=== PATIENT | male | born 1940 | race Caucasian/White ===

== ENCOUNTER 2019-12-02 10:06 | Inpatient (IN) ==
[2019-12-02] MEDS ORDERED: SODIUM CHLORIDE 0.9% 1000ML 1,000 ML IV ONE (10:33)
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
--- NOTE | 2019-12-02 11:04 | XRay Report ---
XR chest 1V portable HISTORY: 79 years-old Male fall, AMS acute chest trauma status post fall COMPARISON: Acute abdominal series radiographs 12/14/2010 TECHNIQUE: Portable AP view of the chest FINDINGS: 4.7 x 4.6 cm masslike opacity of the right hilum with right perihilar, right midlung and right lung b ase opacities. Trace right pleural effusion. Cardiac silhouette is normal. Calcified plaque of the th oracic aorta. Left lung is clear. No pneumothorax. Age-indeterminate likely chronic nondisplaced frac ture of the lateral left sixth rib. No acute displaced rib fracture identified. IMPRESSION: 1. 4.7 cm masslike opacity of the right hilum is suspicious for a bronchogenic neoplasm. Right perihi lar, right midlung and right lung base ill-defined opacities may reflect associated postobstructive p neumonitis or asymmetric pulmonary edema. Correlation with contrast-enhanced CT of the chest is regla [place]. 2. Trace right pleural effusion. 3. Likely chronic nondisplaced fracture of the lateral left sixth rib. ACT 112: Negative or not required by law. The above report was generated using voice recognition software. It may contain grammatical, syntax o r spelling errors. Electronically signed by: Donte Love M.D. 12/02/2019 11:03 AM
[2019-12-02 11:52] LABS: Basophils # (auto) 0.02 K/uL (0-0.2); Basophils % (auto) 0.1 %; Immature Granulocytes # (auto) 0.21 K/uL (0.00-0.02); Lymphocytes # (auto) 0.88 K/uL (1.2-3.4); Lymphocytes % (auto) 4.3 %; Mean Corpuscular Hemoglobin 30.8 pg (25-34); Mean Corpuscular Hgb Conc 34.1 g/dL (32-36); Mean Corpuscular Volume 90.1 fL (80-100); Mean Platelet Volume 9.9 fL (7.4-10.4); Monocytes # (auto) 1.33 K/uL (0.11-0.59); Monocytes % (auto) 6.5 %; Neutrophils # (auto) 17.87 K/uL (1.4-6.5); Neutrophils % (auto) 88.1 %; Platelet Count 351 K/uL (130-400); RDW Coefficient of Variation 14.4 % (11.5-14.5); RDW Standard Deviation 47.1 fL (36.4-46.3); Red Blood Count 4.55 M/uL (4.7-6.1); White Blood Count 20.31 K/uL (4.8-10.8)
[2019-12-02 11:55] LABS: iSTAT Creatinine 1.2 mg/dl (0.6-1.3); iSTAT Hemoglobin 13.9 g/dl (14.0-18.0); iSTAT Ionized Calcium 1.49 mmol/l (1.12-1.32); iSTAT Potassium 4.2 mmol/L (3.3-5.0)
[2019-12-02 12:03] LABS: INR 1.2 (0.9-1.1); Partial Thromboplastin Time 29.2 Seconds (21.0-31.0); Prothrombin Time 12.5 Seconds (9.0-12.0)
[2019-12-02 12:10] LABS: Albumin Level 2.8 gm/dl (3.4-5.0); Calcium 11.5 mg/dl (8.5-10.1); Creatinine Clr Calc Pharmacy 42.4 ml/min; Est GFR (African American) 62.6; Magnesium 2.4 mg/dl (1.8-2.4); Potassium 4.1 mmol/L (3.5-5.1)
[2019-12-02 12:20] LABS: Influenza A virus by PCR Neg for Influ A (Neg); Influenza B virus by PCR Neg for Influ B (Neg)
[2019-12-02 12:26] LABS: Albumin Globulin Ratio 0.7 (0.9-2); Bilirubin,Total 2.6 mg/dl (0.2-1); Globulin 4.3 gm/dl (2.5-4.0); Total Protein 7.1 gm/dl (6.4-8.2); Troponin I 0.032 ng/ml (0-0.045)
[2019-12-02] MEDS ORDERED: OPTIRAY 320 125ml IV PRN (12:52)
[2019-12-02] MEDS ORDERED: PIPERACILLIN/TAZOBACTAM 3.375 GM in DEXTROSE 5% 100 ML/100 ML BAG IV STA (13:01)
[2019-12-02] MEDS ORDERED: PIPERACILL/TAZOBAC CONSULT ACTIVE PRN (13:01)
--- NOTE | 2019-12-02 13:04 | CT Scan Report ---
CT cervical spine wo con CLINICAL HISTORY: 79 years-old Male with fall. Acute head and neck injury status post fall COMPARISON: CT head and CT chest studies of same day. TECHNIQUE: Multiple axial CT images of the cervical spine were obtained without contrast. A dose low ering technique was utilized adhering to the principles of ALARA. FINDINGS: Right hilar mass noted on the log haul operator localizer images with trace right pleural effusion and right lung base opacities. Demineralized appearance of the bones. Severe disc space narrowing with prominent sp ondylitic spurring at C4-C5, C5-C6 and C6-C7. Moderate multilevel facet arthrosis. Nuchal ligament ca lcifications are noted at the level of T1. No acute fracture, subluxation or suspicious bone lesion i dentified. Mild cervical levoscoliosis. Evaluation of the central canal and neuroforamina is better a ssessed by MRI. Multilevel foraminal narrowing is noted. Posterior disc osteophyte complex formations result in multilevel central canal stenosis which is at least mild to moderate at C4-C5. Heterogeneous appearance of the clivus without discrete bone lesion identified. Calcified plaque of t he carotid bulbs. Asymmetric intralobular septal thickening of the right lung with right pleural effu brisa. No adenopathy. No prevertebral soft tissue swelling. IMPRESSION: 1. No acute cervical spine fracture or subluxation. 2. Right pleural effusion with right hilar mass are better evaluated on CT chest of same day. ACT 112: Negative or not required by law. The above report was generated using voice recognition software. It may contain grammatical, syntax o r spelling errors. Electronically signed by: Donte Love M.D. 12/02/2019 1:02 PM
--- NOTE | 2019-12-02 13:11 | CT Scan Report ---
CT chest w con CLINICAL HISTORY: 79 years-old Male presenting with mass on CXR, AMS, cough. TECHNIQUE: Multidetector CT imaging of the chest was performed after the administration of intravenou s contrast. IV contrast: 120 mL of Optiray 320. One or more dose lowering techniques were used consis tent with the principles of ALARA (as low as reasonably achievable), including automatic exposure con trol, mA or kV adjustment to individual patient size, and/or use of iterative reconstruction. COMPARISON: Chest x-ray from earlier today. CT DOSE (mGy.cm): The estimated cumulative dose is 1698.33 mGy.cm. FINDINGS: Coating Machine Feeder topogram: Unremarkable. Soft tissues: Normal thyroid and thoracic inlet. Prominent enhancing mediastinal lymph nodes measurin g up to 11 mm in short axis was prominently in the right paratracheal and precarinal regions. Conglom erate soft tissue in the subcarinal and right infrahilar regions may in part represent lymphadenopath y. The right pulmonary artery is narrowed with more severe narrowing of the interlobar artery. Narrow ing of the right inferior pulmonary vein also noted. Atherosclerosis of the aorta. Normal heart size. Coronary artery calcification. Trace right or pleural fluid. Right renal cysts noted. Lungs and airways: No pneumothorax. Bronchial wall thickening in the right lung. Polypoid soft tissue within the right mainstem bronchus with occlusive soft tissue in the bronchus intermedius. Distal to this there is low-density mucous plugging within the right middle lobe and right lower lobe bronchi. Pulmonary arteries are not significantly enlarged relative to adjacent bronchi. Interlobular septal thickening in the right lung with a basilar predominance. No interlobular septal thickening in the le ft lung. This likely reflects asymmetric venolymphatic congestive change. Multifocal confluent soft t issue mass emanating from the right hilum and infrahilar region. This extends into the right lower lo be predominately involving the azygoesophageal recess as well as into the superior segment. This may cross the adjacent major fissure involving the posterior segment of the right upper lobe and the righ t middle lobe. Groundglass nodule in the posterior segment of the right upper lobe is somewhat poorly depicted but measures approximately 8 mm (series 13 image 155). No nodule is detected in the left jennifer ng. Musculoskeletal: Degenerative changes of the spine. No destructive osseous lesion. IMPRESSION: 1. Right hilar mass extensively involving the right lower and middle lobes, indistinguishable from u nderlying right hilar and subcarinal mediastinal lymphadenopathy. This should be considered primary b ronchogenic neoplasm with lymphangitic metastatic disease until proven otherwise. 2. 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 3. 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 4. Additional findings as above. The report will be called/faxed according to standard departmental protocol. ACT 112: Negative or not required by law. Electronically signed by: Mateo Parr M.D. 12/02/2019 1:10 PM
--- NOTE | 2019-12-02 13:20 | CT Scan Report ---
CT head/brain wo con CLINICAL HISTORY: 79 years-old Male with fall, AMS. Acute head injury status post fall. Acutely alte red mental status TECHNIQUE: Multiple axial CT images of the head were obtained without contrast. A dose lowering tech nique was utilized adhering to the principles of ALARA. COMPARISON: CT cervical spine and chest CT of same day. FINDINGS: Communications Agent localizer images demonstrate a masslike opacity of the right hilum. No acute intracranial hemorrhage, midline shift, intracranial mass, hydrocephalus, territorial ischem ia or abnormal extra-axial collection. Age-related involutional changes with mild ex vacuo ventriculo megaly. Patchy white matter hypodensities suggest chronic microvascular ischemic disease. Cerebral va scular calcifications are also noted. Study is mildly motion degraded. The calvarium is intact. There are a few ill-defined subcentimeter lucent foci of the frontal calvari um (please see bookmarks). The soft tissues and orbits are unremarkable. The paranasal sinuses, masto id air cells, and middle ear cavities are clear. IMPRESSION: No acute intracranial abnormality or calvarial fracture. ACT 112: Negative or not required by law. The above report was generated using voice recognition software. It may contain grammatical, syntax o r spelling errors. Electronically signed by: Donte Love M.D. 12/02/2019 1:19 PM
--- NOTE | 2019-12-02 13:20 | CT Scan Report ---
CT ANGIOGRAM OF THE BRAIN; CT ANGIOGRAM OF THE NECK CLINICAL HISTORY: Strokelike symptoms. COMPARISON STUDY: Unenhanced CT of the brain performed the same day 12/02/2019. TECHNIQUE: Following the IV administration of 120 of Optiray 320, CT angiogram of the head and neck w as performed from the aortic arch to the vertex. Images are reviewed in the axial, sagittal, and emely nal planes. 3-D MIPS images are created and assessed. IV contrast was administered without complicati on. All measurements were calculated based on NASCET criteria. A dose lowering technique was utilize d adhering to the principles of ALARA. FINDINGS: Brain parenchyma: There is age-related involutional change noting mild subcortical and periventricula r microangiopathic disease. There is no hemorrhage, mass effect, or evidence of acute territorial isc hemia by CT criteria. There is no evidence of enhancing mass lesion on the angiogram phase images. Th e ventricles, sulci, and cisterns are prominent secondary to involutional change. Rojas-white matter d ifferentiation is preserved. No extra-axial fluid collection is seen. Right carotid arterial system: The right common carotid artery is widely patent, as are the right int ernal and external carotid arteries. Calcified plaque is noted in the carotid bowl. Left carotid arterial system: The left common carotid artery is widely patent, as are the left summer internship al and external carotid arteries. Atherosclerotic plaque is noted in the carotid bulb. Vertebral arteries: The vertebral arteries are widely patent and codominant. Subclavian arteries: Widely patent bilaterally. Intracranial vasculature: There is atherosclerotic calcification of the cavernous carotid arteries. T he internal carotid arteries are patent at the skull base, as are the anterior and middle cerebral ar teries bilaterally. The vertebrobasilar system and posterior cerebral arteries are widely patent. The left vertebral artery is dominant. There is a 1 mm aneurysm of the anterior communicating artery see n on axial image #123. There is a 3 mm aneurysm of the supraclinoid left internal carotid artery, bes t seen on image #111 No high-grade stenosis Or focal vessel cut off seen throughout the intracranial circulation. Jugular veins: Patent bilaterally. Dural sinuses: Patent. Lung apices: Partially visualized upper lobe lung parenchyma appears clear noting apical scarring. Soft tissues: The visualized pharyngeal soft tissues are normal in appearance noting angiographic pha se technique. The oropharyngeal airway appears widely patent. The salivary and thyroid glands are nor mal in appearance. No cervical lymphadenopathy is seen. Skeletal structures: The skeletal structures are osteopenic. The calvarium appears intact. The cervic al spine is maintained noting multiple spondylosis. No lytic or blastic lesion is seen. Orbits: There is chronic posttraumatic deformity of the right lamina papyracea with medial herniation of orbital fat. The bony orbits are otherwise intact. Orbital contents are normal in appearance. Sinuses and mastoids: There is trace mucosal thickening within the maxillary antra. The remaining vis ualized paranasal sinuses are clear. The mastoid air cells are well pneumatized. IMPRESSION: 1. There is no hemorrhage, mass effect, or evidence of acute territorial ischemia by CT criteria. 2. There are 2 small intracranial aneurysms, including a 1 mm aneurysm of the anterior communicating artery and a 3 mm aneurysm of the supraclinoid left internal carotid artery. 3. Otherwise unremarkable CT angiogram of the brain. 4. Unremarkable CT angiogram of the neck. ACT 112: Negative or not required by law. Electronically signed by: Rajendra Callahan M.D. 12/02/2019 1:19 PM
[2019-12-02 13:25] LABS: Appearance Urine Cloudy (Clear); Blood Urine 1+ (Negative); Color Urine Dark Yellow; Epithelial Cell Urine Auto >30 /lpf (0-5); Glucose Urine UA Negative (Negative); Ketones Urine 1+ (Negative); Leukocyte Esterase Urine Negative (Negative); Nitrite Urine Negative (Negative); Protein Urine Trace (Negative); Specific Gravity Urine 1.035 (1.000-1.030); Urobilinogen Urine Negative (Negative)
[2019-12-02 13:39] LABS: Bilirubin Urine Negative (Negative); Ictotest Urine Negative (Negative)
[2019-12-02 13:42] LABS: Cast Urine Automated >30 /lpf (0-5); Mucus Urine Present (None Prsent)
[2019-12-02 13:45] LABS: Bacteria Urine Automated 1+ (Negative); Calcium Oxalate Crystals Urine Present (None Prsent)
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
--- NOTE | 2019-12-02 15:07 | History & Physical Report ---
Date of Service December 02, 2019 Assessment & Plan (1) Sepsis: Pt is 79 y/o M with PMH of actual disability, COPD, BPH, dyslipidemia presented to ER with complaint of fall. It is reported for the past 1 to 2 weeks pt had sore throat, cough. Reported choked while eating last week. Unknown if recent F/C In ER patient afebrile, P: 95-104, RR: 13-26, BP 108/79, 95/83, 107/74, 96-100% on room air WBC: 20, elevated neutrophils, Ca: 11.5, glucose 156 otherwise no other significant electrolyte abnormality, lactic acid 3.2, UA 5-10 WBC, 5-10 RBC, 1+ bacteria > 30 epithelial cells. Negative influenza PCR. CXR: 1. 4.7 cm masslike opacity of the right hilum is suspicious for a bronchogenic neoplasm. Right perihilar, right midlung and right lung base ill-defined opacities may reflect associated postobstructive pneumonitis or asymmetric pulmonary edema. Correlation with contrast-enhanced CT of the chest is needed. 2. Trace right pleural effusion. 3. Likely chronic nondisplaced fracture of the lateral left sixth rib. Meets SIRS criteria -In ER given 1 L NSS, Zosyn -Repeat lactic acid 3.6 trend lactic acid -Antibiotics per attending physician, continue Zosyn -MRSA swab pending -Pending COVID-19 PCR -Isolation precautions -Dysphagia screen, clear liquid diet for now -CBC, BMP in the morning (2) Mass of hilum: CT CHEST: IMPRESSION: 1. Right hilar mass extensively involving the right lower and middle lobes, indistinguishable from underlying right hilar and subcarinal mediastinal lymphadenopathy. This should be considered primary bronchogenic neoplasm with lymphangitic metastatic disease until proven otherwise. 2. 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 3. 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 -Pulmonology consult, attending physician spoke with on-call who is aware and recommends COVID-19 testing, possible consideration for bronchoscopy (3) Fall: (4) Rhabdomyolysis: Pt found on floor today. Unknown how long pt was down CPK: 2523, K: 4.1, BUN: 43, Cr: 1.25, GFR:54 (baseline GFR>60) CT HEAD: No acute intracranial abnormality or calvarial fracture. CT C-SPINE: 1. No acute cervical spine fracture or subluxation. 2. Right pleural effusion with right hilar mass are better evaluated on CT chest of same day. CTA HEAD/CTA NECK: 1. There is no hemorrhage, mass effect, or evidence of acute territorial ischemia by CT criteria. 2. There are 2 small intracranial aneurysms, including a 1 mm aneurysm of the anterior communicating artery and a 3 mm aneurysm of the supraclinoid left internal carotid artery. 3. Otherwise unremarkable CT angiogram of the brain. 4. Unremarkable CT angiogram of the neck. -IVF -Recheck CPK tomorrow morning (5) Intellectual disability: Gabby, is pt's economics consultant who works for [employer] in [facility]. Her electronics production supervisor is Noam at [phone]. Contacted [place] who said [facility] has patient's case. -Spoke with patient's medical case worker Trini Sheehan at [phone] with [facility]. She reports patient does not have any living relatives. States patient does not have living well. He does not have a medical decision maker. -She reports past several months pt has had decline, prior he was fairly high functioning and she reports that there is question on how much pt understands vs a communication issue. (6) Dyslipidemia: -Continue statin (7) BPH (benign prostatic hyperplasia): -Continue tamsulosin, finasteride DVT Prophylaxis -SCDs for now in case of possible procedure Full Code as per discussion with pt, pt seemed to understand discussion and health care coach with pt thinks pt understood discussion Follows with Dr Farias for routine care Pt was seen and care coordinated with Dr Cassidy. See addendum History of Present Illness Chief Complaint: sore throat, fall Primary Care Provider: Edgar Farias MD Pt is 79 y/o M with PMH of actual disability, COPD, BPH, dyslipidemia presented to ER with complaint of fall. History obtained from patient's caregiver economics consultant. Gabby, is pt's economics consultant who works for [employer] in [place]. It is reported for the past 1 to 2 weeks patient has been complaining of sore throat, cough. This week patient has been refusing to allow caregivers to enter his home. It is reported patient lives by himself. He has caregivers coming 8 hours a week. It is reported that they help prompt him to fill his med reminder containers and can prompt him to take medications however cannot physically hand him medications to take. His health care coach reports that she does not believe he has been taking his medications for the last several days. She reports that he would not allow anyone in his house for the past 4 days. She knocked on door today and heard patient yelling that he was on floor and could not get up. Patient was found lying on floor in the bathroom. Unsure how long patient was lying on floor. She also reports that patient had been visible weight loss the past several months and has not been eating or drinking well. There is report pt had choked last week In ER patient's caregiver economics consultant helps interpret some of what he is saying. Pt c/o feet being cold. It is unknown if pt with any fevers, N/V/D/C, abdominal pain, SOB, CP. Gabby, is pt's economics consultant who works for [employer] in [place]. Her electronics production supervisor is Noam at [phone]. Contacted Noam who said [facility] has patient's case. Spoke with patient's medical case worker Trini Sheehan at [phone] with [facility]. She reports patient does not have any living relatives. States patient does not have living well. He does not have a medical decision maker. She reports past several months pt has had decline, prior he was fairly high functioning and she reports that there is question on how much pt understands vs a communication issue. Trini's electronics production supervisor is Renetta Cortes at [phone], attempted to contact however no answer and her voicemail was not set up to leave message. Unable to obtain FH Allergies Allergy/AdvReac Type Severity Reaction Status Date / Time No Known Allergies Unverified 12/02/19 10:57 Home Medications Home Medications Medication Instructions Recorded Confirmed Type atorvastatin 40 mg PO QAM 12/02/19 12/02/19 History cholecalciferol (vitamin D3) 25 mcg PO QAM 12/02/19 12/02/19 History [Vitamin D3] finasteride 5 mg PO QAM 12/02/19 12/02/19 History tamsulosin 0.4 mg PO QAM 12/02/19 12/02/19 History Past Med/Surg History Medical History (Updated 12/02/19 @ 16:28 by Delilah Betancourt PA-C) Asthma BPH (benign prostatic hyperplasia) COPD (chronic obstructive pulmonary disease) Dyslipidemia Intellectual disability Intellectual disability Surgical History (Updated 12/02/19 @ 15:57 by Delilah Betancourt PA-C) History of colonoscopy 2012 - adenomatous polyps; by Dr Bahena Social History (Updated 12/02/19 @ 15:59 by Delilah Betancourt PA-C) Preferred Language: Syriac Feels Safe at Home: Yes Smoking Status: Former smoker Smoking End Date: Quit 2008, smoked 1ppd x 40 years ; Hx Alcohol Use: No Hx Substance Use: No Review of Systems Review of Systems: Unobtainable due to cognitive status Physical Exam Physical Exam: General: no acute distress, thin elderly male, disheveled Head: normocephalic, atraumatic Eyes: PERRL, EOM's intact, conjunctiva non-injected, anicteric ENT: normal inspection external ears, nose, mucous membranes dry Neck: supple, trachea midline Lungs: no respiratory distress, R: 20, 97% on RA, diminished breath sounds CV: RRR, trace pretibial edema Abd: normal BS, soft, no apparent tenderness to palpation Ext: no cyanosis, no apparent calf tenderness, able to move arms and legs Neuro: Awake and alert. Pt talks but unable to understand most of what he is saying, his caregiver able to help interpret some Skin: warm, dry Results & Data Results & Data ([facility]) Vital Signs (Past 12 Hours) Vital Signs Temp Pulse Resp BP Pulse Ox 12/02/19 14:00 98 H 22 106/75 99 12/02/19 13:50 91 H 22 97 12/02/19 13:45 90 21 109/73 98 12/02/19 13:40 94 H 20 96 12/02/19 13:31 92 H 23 90 12/02/19 13:30 94 H 21 118/74 95 12/02/19 13:20 96 H 22 95 12/02/19 13:15 94 H 20 114/76 99 12/02/19 13:10 96 H 22 96 12/02/19 13:05 96 H 21 98 12/02/19 13:04 97 H 25 H 146/88 H 98 12/02/19 13:00 93 H 25 H 96 12/02/19 12:50 91 H 17 98 12/02/19 12:43 93 H 24 12/02/19 12:20 100 H 28 H 12/02/19 12:10 95 H 21 12/02/19 12:00 97 H 22 100 12/02/19 11:50 94 H 22 99 12/02/19 11:40 95 H 26 H 90 12/02/19 11:31 95 H 20 95 12/02/19 11:30 94 H 24 111/70 97 12/02/19 11:20 94 H 23 97 12/02/19 11:15 94 H 23 108/74 100 12/02/19 11:10 94 H 21 96 12/02/19 11:09 95 H 29 H 103/66 93 12/02/19 11:00 97 H 23 113/82 100 12/02/19 10:50 109 H 23 12/02/19 10:40 106 H 17 12/02/19 10:32 98 12/02/19 10:30 100 H 23 99/70 L 12/02/19 10:24 36.5 C 95 H 13 108/79 98 12/02/19 10:22 99 H 21 99 12/02/19 10:19 100 H 20 108/79 98 Laboratory Results Short CBC 12/02/19 Range/Units 11:36 WBC 20.31 H (4.8-10.8) K/uL Hgb 14.0 (14.0-18.0) g/dL Hct 41.0 L (42-52) % Plt Count 351 (130-400) K/uL BMP 12/02/19 11:36 Sodium 138 Potassium 4.1 Chloride 104 Carbon Dioxide 21 BUN 46 H Creatinine 1.25 Glucose 156 H Calcium 11.5 H Cardiac Enzymes 12/02/19 Range/Units 11:36 Total Creatine Kinase 1296 H (39-308) U/L Troponin I 0.032 (0-0.045) ng/ml Liver Function 12/02/19 Range/Units 11:36 Total Bilirubin 2.6 H (0.2-1) mg/dl AST 95 H (15-37) U/L ALT 39 (12-78) U/L Alkaline Phosphatase 118 H (45-117) U/L Albumin 2.8 L (3.4-5.0) gm/dl Urine 12/02/19 Range/Units 13:10 Urine Color Dark Yellow Urine Appearance Cloudy A (Clear) Urine pH 5.0 (4.5-7.5) Ur Specific Guston 1.035 H (1.000-1.030) Urine Protein Trace H (Negative) Urine Glucose (UA) Negative (Negative) Diagnostic Findings CT HEAD: IMPRESSION: No acute intracranial abnormality or calvarial fracture. CXR: IMPRESSION: 1. 4.7 cm masslike opacity of the right hilum is suspicious for a bronchogenic neoplasm. Right perihilar, right midlung and right lung base ill-defined opacities may reflect associated postobstructive pneumonitis or asymmetric pulmonary edema. Correlation with contrast-enhanced CT of the chest is needed. 2. Trace right pleural effusion. 3. Likely chronic nondisplaced fracture of the lateral left sixth rib. CT C-SPINE: IMPRESSION: 1. No acute cervical spine fracture or subluxation. 2. Right pleural effusion with right hilar mass are better evaluated on CT chest of same day. CTA HEAD/CTA NECK: IMPRESSION: 1. There is no hemorrhage, mass effect, or evidence of acute territorial ischemia by CT criteria. 2. There are 2 small intracranial aneurysms, including a 1 mm aneurysm of the anterior communicating artery and a 3 mm aneurysm of the supraclinoid left internal carotid artery. 3. Otherwise unremarkable CT angiogram of the brain. 4. Unremarkable CT angiogram of the neck. CT CHEST: IMPRESSION: 1. Right hilar mass extensively involving the right lower and middle lobes, indistinguishable from underlying right hilar and subcarinal mediastinal lymphadenopathy. This should be considered primary bronchogenic neoplasm with lymphangitic metastatic disease until proven otherwise. 2. 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 3. 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 Code Status & VTE Plan VTE Prophylaxis Plan VTE Prophylaxis will be ordered: Yes Supervising Physician Co-Signing Physician Notes I, Dr. Mateo Cassidy, have seen and examined the patient Earlin Aj with physician plant attendant or assistant operator and would like to comment that On Physical Exam General: no acute distress, speaks in sometimes mumbling speech Lungs: no wheezing, some stridor Heart: regular rate Abdomen soft, nontender, positive bowel sounds Extremities: poor nail care of the feet ASSESSMENT AND PLAN -This is a patient with intellectual disability who does have toxicology supervisor services and having recent cough and weight loss who was found being on the floor by toxicology supervisor for unknown duration with elevated creatinine kinase suggestive of rhabdomyolosis and with CT imaging on this admission significant for lung cancer (right hilar mass extensively involving the right lower and middle lobes, indistinguishable from underlying right hilar and subcarinal mediastinal lymphadenopathy. This should be considered primary bronchogenic neoplasm with lymphangitic metastatic disease until proven otherwise. 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 Quinonez about inpatient bronchoscopy, Dr. Quinonez requested COVID-19 to be rule out prior to proceeding with bronchoscopy -medical decision making is being investigated by hospitalist team. Patient has toxicology supervisor services but no living relations no known Living Will and has in tellectual disability by history. Patient did seem to appreciate being able to make decision about code status. He is full code status as he would allow for chest compression, defibrillation, and intubation in medical emergency. However, his ability to comprehend invasive procedure of bronchoscopy risks and benefits and future chemotherapy or radiation plans are questionable. (as documented by physician plant attendant or assistant operator Gabby, is pt's economics consultant who works for [employer] in [place]. Her electronics production supervisor is Noam at [phone]. Contacted [place] who said [facility] has patient's case. Spoke with patient's medical case worker Trini Sheehan at [phone]. She reports patient does not have any living relatives. States patient does not have living well. He does not have a medical decision maker. Trini's electronics production supervisor is Renetta Cortes at [phone], attempted to contact however no answer and her voicemail was not set up to leave message.) -give IV fluids and trend the creatinine kinase -agree with other assessment and plan as documented by physician plant attendant or assistant operator on other chronic health conditions My colleague Dr. Leos will be taking over the care of the patient as consult service hospitalist starting on 12/03/2019 (1) Rhabdomyolysis Encounter type: initial encounter Rhabdomyolysis type: traumatic Qualified Code(s): T79.6XXA - Traumatic ischemia of muscle, initial encounter (2) Fall Encounter type: initial encounter Qualified Code(s): W19.XXXA - Unspecified fall, initial encounter
--- NOTE | 2019-12-02 15:41 | Pulmonary Consultation ---
Date of Consultation December 02, 2019 History of Present Illness Allergies Allergy/AdvReac Type Severity Reaction Status Date / Time No Known Allergies Unverified 12/02/19 10:57 Home Medications Home Medications Medication Instructions Recorded Confirmed Type atorvastatin 40 mg PO QAM 12/02/19 12/02/19 History cholecalciferol (vitamin D3) 25 mcg PO QAM 12/02/19 12/02/19 History [Vitamin D3] finasteride 5 mg PO QAM 12/02/19 12/02/19 History tamsulosin 0.4 mg PO QAM 12/02/19 12/02/19 History Patient History Medical History Asthma COPD (chronic obstructive pulmonary disease) Intellectual disability Social History Preferred Language: Indian Feels Safe at Home: Yes Smoking Status: Former smoker Results & Data [facility] ([facility]) Vital Signs (Past 12 Hours) Vital Signs Temp Pulse Resp BP Pulse Ox 12/02/19 15:30 101 H 21 107/74 97 12/02/19 15:15 103 H 23 108/80 97 12/02/19 15:00 104 H 26 H 95/83 L 95 12/02/19 14:30 97 H 26 H 108/78 97 12/02/19 14:15 96 H 25 H 115/76 99 12/02/19 14:00 98 H 22 106/75 99 12/02/19 13:50 91 H 22 97 12/02/19 13:45 90 21 109/73 98 12/02/19 13:40 94 H 20 96 12/02/19 13:31 92 H 23 90 12/02/19 13:30 94 H 21 118/74 95 12/02/19 13:20 96 H 22 95 12/02/19 13:15 94 H 20 114/76 99 12/02/19 13:10 96 H 22 96 12/02/19 13:05 96 H 21 98 12/02/19 13:04 97 H 25 H 146/88 H 98 12/02/19 13:00 93 H 25 H 96 12/02/19 12:50 91 H 17 98 12/02/19 12:43 93 H 24 12/02/19 12:20 100 H 28 H 12/02/19 12:10 95 H 21 12/02/19 12:00 97 H 22 100 12/02/19 11:50 94 H 22 99 12/02/19 11:40 95 H 26 H 90 12/02/19 11:31 95 H 20 95 12/02/19 11:30 94 H 24 111/70 97 12/02/19 11:20 94 H 23 97 12/02/19 11:15 94 H 23 108/74 100 12/02/19 11:10 94 H 21 96 12/02/19 11:09 95 H 29 H 103/66 93 12/02/19 11:00 97 H 23 113/82 100 12/02/19 10:50 109 H 23 12/02/19 10:40 106 H 17 12/02/19 10:32 98 12/02/19 10:30 100 H 23 99/70 L 12/02/19 10:24 36.5 C 95 H 13 108/79 98 12/02/19 10:22 99 H 21 99 12/02/19 10:19 100 H 20 108/79 98 PG Care Time/CCT Total # of Minutes Spent Total Time Spent with Patient: Total time spent is greater than 50% in coordination of care (as documented) at patient's floor/unit and/or counseling patient: Coding
[2019-12-02] MEDS ORDERED: ACETAMINOPHEN 325 MG TAB PO PRN (20:22)
[2019-12-02] MEDS: SODIUM CHLORIDE 0.9% 1000ML 1,000 ML IV SCH (20:42)
[2019-12-02] MEDS: PIPERACILLIN/TAZOBACTAM 3.375 GM in DEXTROSE 5% 100 ML IV SCH (21:11)
[2019-12-02] MEDS ORDERED: INFLUENZA VACCINE HIGH DOSE 65+ 0.5 ML SYR IM ONE (21:27)
[2019-12-02] MEDS ORDERED: PNEUMOCOCCAL POLYSACCHARIDES 25 MCG/0.5 ML VIAL/SYR IM ONE (21:27)
[2019-12-02] MEDS ORDERED: PNEUMOCOCCAL ADMINISTRATION CHARGE ONE (21:27)
[2019-12-02] MEDS ORDERED: INFLUENZA ADMINISTRATION CHARGE ONE (21:27)
[2019-12-03] MEDS: PIPERACILLIN/TAZOBACTAM 3.375 GM in DEXTROSE 5% 100 ML IV SCH ×3 (04:09→20:19)
[2019-12-03] MEDS: SODIUM CHLORIDE 0.9% 1000ML 1,000 ML IV SCH ×2 (05:46→18:44)
--- NOTE | 2019-12-03 06:11 | Electrocardiogram Report ---
Test Reason : Blood Pressure : / mmHG Vent. Rate : 094 BPM Atrial Rate : 094 BPM P-R Int : 148 ms QRS Dur : 130 ms QT Int : 410 ms P-R-T Axes : 070 -07 058 degrees QTc Int : 512 ms Poor data quality, interpretation may be adversely affected Normal sinus rhythm Right bundle branch block Abnormal ECG When compared with ECG of 14-DEC-2010 12:29, No significant change was found Confirmed by Isaak Russell ([id number]) on 12/03/2019 6:11:04 AM Referred By: REFERRED SELF Confirmed By:Isaak Russell
[2019-12-03 06:18] LABS: Basophils # (auto) 0.01 K/uL (0-0.2); Basophils % (auto) 0.1 %; Eosinophils # (auto) 0.02 K/uL (0-0.5); Eosinophils % (auto) 0.1 %; Hematocrit (blood only) 35.7 % (42-52); Hemoglobin 12.6 g/dL (14.0-18.0); Immature Granulocytes % (auto) 0.7 %; Lymphocytes # (auto) 1.41 K/uL (1.2-3.4); Lymphocytes % (auto) 9.6 %; Mean Corpuscular Hemoglobin 31.8 pg (25-34); Mean Corpuscular Hgb Conc 35.3 g/dL (32-36); Mean Corpuscular Volume 90.2 fL (80-100); Mean Platelet Volume 9.7 fL (7.4-10.4); Monocytes % (auto) 8.2 %; Neutrophils # (auto) 11.93 K/uL (1.4-6.5); Neutrophils % (auto) 81.3 %; Platelet Count 288 K/uL (130-400); RDW Coefficient of Variation 14.7 % (11.5-14.5); RDW Standard Deviation 48.2 fL (36.4-46.3); Red Blood Count 3.96 M/uL (4.7-6.1); White Blood Count 14.67 K/uL (4.8-10.8)
[2019-12-03 07:08] LABS: BUN Creatinine Ratio 47.4 (10-20); Calcium 10.5 mg/dl (8.5-10.1); Creatinine Clr Calc Pharmacy 58.3 ml/min; Est GFR (African American) 93.2; Est GFR (Non-African American) 80.4; Potassium 3.7 mmol/L (3.5-5.1)
[2019-12-03] MEDS: FINASTERIDE 5 MG TAB PO SCH (11:36)
[2019-12-03] MEDS: ATORVASTATIN 40 MG TAB PO SCH (11:36)
[2019-12-03] MEDS: TAMSULOSIN HCL 0.4 MG CAP PO SCH (11:36)
--- NOTE | 2019-12-03 13:24 | Pulmonary Consultation ---
Date of Consultation December 03, 2019 Assessment & Plan (1) Mass of right lung: Patient denies former history of malignancy [id number] smoking history. Patient quit smoking in 2008 Patient presented with sepsis and is currently receiving antibiotics. Patient also with elevated calcium at 10.5. * Recommend calcitonin and increased IV fluid We will plan on bronchoscopy once patient is more stable from his sepsis (2) Sepsis: Possible pneumonia but patient has large right hilar mass Lactic acid is decreased down to 1.4 Currently receiving Zosyn COVID 19 test is negative Preliminary blood cultures and urine culture are With no growth to date after 24 hours Negative for influenza A and B MRSA screening is negative T-max this admission has been 37.1 C Continue care per primary team (3) Intellectual disability: Patient apparently lives alone and makes his own decisions Primary caregiver since February 2019 is been to Gabby Garcia [phone] Gabby's superviser is Noam [phone] Patient's case management specialist with [facility] is Trini Sissy [phone] There are no living relatives or power of assistant attorney general assigned As far as case workers no, There is no guardianship assigned by the [facility] or office of aging (4) History of tobacco abuse: [id number] history. Patient quit smoking in 2015 Continue to encourage complete abstinence Thank you for including us in the care of this patient.We will continue to follow along with you. Please refer to Dr. Quinonez's addendum for further ambulations. Supervising Physician Co-Signing Physician Notes I saw and evaluated the patient with Rajendra ferrer, and agree with findings and plan as documented in the note. 79-year-old male with past medical history significant for smoking history, intellectual disability who has been taken care of by primary wound care technician. He was admitted because of dry cough and increasing SOB since last couple of weeks. Patient had a CT chest in the ED which showed right hilar mass with subsequent right lower and middle lobe infiltrate. There was significant mediastinal lymphadenopathy with necrosis appreciated with. Patient had a corrected calcium of 12.5 on presentation. Today the corrected calcium level is 11.5. Given hypercalcemia and right mediastinal mass the likelihood of cancer is very high in a patient who has greater than [id number] smoking history. Given the patient is hypercalcemic with elevated WBC count would rather have calcium within normal limits prior to proceeding with any procedure. Case was discussed with Dr. Leos and recommendation was made to start the patient on IV fluids and give a dose of calcitonin and biphosphonate/risedronate. Application Support Lead is also been involved to see if the patient has the capacity to make his own decisions. Possible bronchoscopy on Friday. History of Present Illness Attending Physician: Edgar Leos MD History of Present Illness Attending: Dr. Quinonez This is an 79-year-old male that lives at home alone. He does have an intellectual disability and has home health care provided through [facility] in [facility]. The patient's primary caregiver is Gabby harrell. Her direct phone number is [phone]. I did speak with her this morning and she tells me that the patient has lives alone and has no family. He has no children. He has been making his own decisions at home and communicates through to care. She is currently been his primary caregiver since February 2019.Per her knowledge there is no other guardianship assigned by the [facility] or [facility] .The patient is very difficult to understand and the caregiver indicates that this is his baseline. The patient has had a cough for the last 2 weeks and increasing shortness of breath. He is oxygenating well on room air. He denies any blood in his sputum. He denies any chest pain or tightness.The ski production supervisor states that he has not been allowing other caregivers to come to the home this week. She is also questioning whether not he was taking his meds as prescribed. The patient states he is a former smoker but quit several years ago. He states he does not follow with a lung doctor and has no known lung disease. On admission the patient had a chest x-ray followed by CT scan which shows a large right mass in the hilar region. This is suspicious for squamous cell carcinoma.Patient most likely will require endobronchial ultrasound with bronchoscopy. This will not happen before Friday. Allergies Allergy/AdvReac Type Severity Reaction Status Date / Time No Known Allergies Unverified 12/02/19 10:57 Home Medications Home Medications Medication Instructions Recorded Confirmed Type atorvastatin 40 mg PO QAM 12/02/19 12/02/19 History cholecalciferol (vitamin D3) 25 mcg PO QAM 12/02/19 12/02/19 History [Vitamin D3] finasteride 5 mg PO QAM 12/02/19 12/02/19 History tamsulosin 0.4 mg PO QAM 12/02/19 12/02/19 History Patient History Medical History Asthma BPH (benign prostatic hyperplasia) COPD (chronic obstructive pulmonary disease) Dyslipidemia Intellectual disability Intellectual disability Surgical History History of colonoscopy 2013 - adenomatous polyps; by Dr Bahena Social History Preferred Language: Finnish Communication Ability: Effective Communication Ability Comment: ID, garbled speech, 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 Pleasant. Difficult to understand EYES: No icterus, gaze conjugate NOSE: No evidence of epistaxis. No breach of septum MOUTH: No lesions or candidiasis. Mucosa is dry NECK: Supple LUNGS: Generally CTA B/L, no wheezes, rales or rhonchi HEART: Regular, rate controlled ABDOMEN: Soft, NT, ND, BS Present EXTREMITIES: No LE edema, pedal pulses intact NEURO: A&OX3 Results & Data Results & Data ([facility]) Vital Signs (Past 12 Hours) Vital Signs Temp Pulse Pulse Resp BP Pulse Ox 12/03/19 11:33 36.4 C L 87 20 137/82 96 12/03/19 11:17 84 12/03/19 08:19 36.4 C L 88 20 118/74 95 12/03/19 04:10 36.8 C 88 18 110/67 94 Laboratory Results INR 1.2 (0.9-1.1) H 12/02/19 11:36 12/03/19 05:55 12/03/19 05:[address] chest w con CLINICAL HISTORY: 79 years-old Male presenting with mass on CXR, AMS, cough. TECHNIQUE: Multidetector CT imaging of the chest was performed after the administration of intravenous contrast. IV contrast: 120 mL of Optiray 320. One or more dose lowering techniques were used consistent with the principles of ALARA (as low as reasonably achievable), including automatic exposure control, mA or kV adjustment to individual patient size, and/or use of iterative reconstruction. COMPARISON: Chest x-ray from earlier today. CT DOSE (mGy.cm): The estimated cumulative dose is 1698.33 mGy.cm. 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 Soft tissues: Normal thyroid and thoracic inlet. Prominent enhancing mediastinal lymph nodes measuring up to 11 mm in short axis was prominently in the right paratracheal and precarinal regions. Conglomerate soft tissue in the subcarinal and right infrahilar regions may in part represent lymphadenopathy. The right pulmonary artery is narrowed with more severe narrowing of the interlobar artery. Narrowing of the right inferior pulmonary vein also noted. Atherosclerosis of the aorta. Normal heart size. Coronary artery calcification. Trace right or pleural fluid. Right renal cysts noted. Lungs and airways: No pneumothorax. Bronchial wall thickening in the right lung. Polypoid soft tissue within the right mainstem bronchus with occlusive soft tissue in the bronchus intermedius. Distal to this there is low-density mucous plugging within the right middle lobe and right lower lobe bronchi. Pulmonary arteries are not significantly enlarged relative to adjacent bronchi. Interlobular septal thickening in the right lung with a basilar predominance. No interlobular septal thickening in the left lung. This likely reflects asymmetric venolymphatic congestive change. Multifocal confluent soft tissue mass emanating from the right hilum and infrahilar region. This extends into the right lower lobe predominately involving the azygoesophageal recess as well as into the superior segment. This may cross the adjacent major fissure involving the posterior segment of the right upper lobe and the right middle lobe. Groundglass nodule in the posterior segment of the right upper lobe is somewhat poorly depicted but measures approximately 8 mm (series 13 image 155). No nodule is detected in the left lung. Musculoskeletal: Degenerative changes of the spine. No destructive osseous lesion. IMPRESSION: 1. Right hilar mass extensively involving the right lower and middle lobes, indistinguishable from underlying right hilar and subcarinal mediastinal lymphadenopathy. This should be considered primary bronchogenic neoplasm with lymphangitic metastatic disease until proven otherwise. 2. 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 3. 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 4. Additional findings as above. The report will be called/faxed according to standard departmental protocol. ACT 112: Negative or not required by law. Electronically signed by: Mateo Parr M.D. 12/02/2019 1:10 PM PG Care Time/CCT Total # of Minutes Spent Total Time Spent with Patient: Total time spent is greater than 50% in coordination of care (as documented) at patient's floor/unit and/or counseling patient:45 minutes including discussion with home health caregiver, other providers, and case management [place] [address] Inpt Consult Level 4 Patient Type New Diagnoses Mass of right lung R91.8 Sepsis A41.9 Intellectual disability F79 History of tobacco abuse Z87.029
--- NOTE | 2019-12-03 17:03 | Hospitalist Progress Note ---
Date of Service December 03, 2019 Assessment & Plan (1) Severe sepsis: Met criteria for sever sepsis at time of admission per current [facility] guidelines- tachycardia, tachypnea, leukocytosis, elevated lactate. Blood cultures obtained. Received broad-spectrum IV antibiotics. Received fluid resuscitation. Serum lactate 3.2 and followed. Hemodynamically stable. Most likely source pneumonia as discussed below. (2) Postobstructive pneumonia: Suspected underlying lung Ca. Continue IV piperacillin / tazobactam. (3) Abnormal CT scan, chest: CT chest: IMPRESSION: 1. Right hilar mass extensively involving the right lower and middle lobes, indistinguishable from underlying right hilar and subcarinal mediastinal lymphadenopathy. This should be considered primary bronchogenic neoplasm with ly mphangitic metastatic disease until proven otherwise. 2. Neoplastic invasion of the right mainstem bronchus and bronchus intermedius resulting in bronchial obstruction and postobstructive mucous pl ugging. 3. 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 4. Additional findings as above. The report will be called/faxed according to standard departmental protocol. ACT 112: Negative or not required by law. Electronically signed by: Mateo Parr M.D. Former smoker. Findings worrisome for lung primary with bronchial obstruction and postobstructive pneumonia. Pulmonary Medicine consulted. (4) Hypercalcemia: Serum calcium at time of admission 11.5. Alb = 2.8. Corrected Ca++ = 12.5. Ionized Ca++ 1.49. Received IV fluids. Calcium today = 10.5, corrected Ca = 11.5. Suspected underlying lung Ca. Continue IV fluids. Calcitonin. Follow. (5) Rhabdomyolysis: Found at home on floor. CPK 1296. Received IV fluids. Renal function stable. CPK today 341. (6) Dysphagia: Difficulty swallowing noted by nursing staff. INSTRUCTOR KINDERGARTEN tashal. (7) BPH (benign prostatic hyperplasia): Continue finasteride and tamsulosin. (8) Weight loss: Apparent weight loss. Suspected underlying malignancy. Review records. (9) Fall: Found at home after apparent fall. PT / OT. (10) Intellectual disability: History of cognitive disability. Deemed capable of decision making in the past, but may need reassessment. (11) COVID-19 virus not detected: No apparent risk factors for COVID-19. Testing recommended in light of anticipated bronchoscopy. SARS-CoV-2 nasopharyngeal PCR negative on 12/02/19. (12) DVT prophylaxis: Anticoagulants not ordered at time of admission due to possibility of invasive diagnostic procedures. SCD's. Ambulate. (13) Discharge planning issues: Discharge disposition to be determined. Unlikely that patient will be able to care for himself at home. Family Medicine follow-up with Dr. Fairas. Admission and Anticipated Discharge Date Admission Date: December 02, 2019 Subjective Recheck for multiple problems. No fever. Occasional cough. Denies SOB. No chest pain. Nursing staff concerned about difficulty swallowing. Review of Systems: Constitutional- no fever. Cardiac- no chest pain. Pulmonary- as noted above. GI- no nausea, vomiting, diarrhea, melena, hematochezia. - no urinary symptoms. Otherwise, as noted above. Physical Exam Constitutional: + thin Eyes: + anicteric sclerae Respiratory: no respiratory distress Auscultation: + rales (right base) Cardiovascular: Rate/Rhythm: regular rate Extremities: no edema Gastrointestinal (Abdomen): normal bowel sounds, soft, nontender, no hepatosplenomegaly Musculoskeletal: Extremities: no cyanosis Psychiatric: Orientation: alert; + not oriented x 3 Results & Data Results & Data ([facility]) Vital Signs (Past 12 Hours) Vital Signs Temp Pulse Pulse Resp BP Pulse Ox 12/03/19 15:59 36.4 C L 87 20 146/75 H 96 12/03/19 11:33 36.4 C L 87 20 137/82 96 12/03/19 11:17 84 12/03/19 08:19 36.4 C L 88 20 118/74 95 (1) Rhabdomyolysis Encounter type: initial encounter Rhabdomyolysis type: traumatic Qualified Code(s): T79.6XXA - Traumatic ischemia of muscle, initial encounter (2) Fall Encounter type: initial encounter Qualified Code(s): W19.XXXA - Unspecified fall, initial encounter
[2019-12-03] MEDS ORDERED: CALCITONIN SALMON 400 UNITS/2 ML SQ ONE (17:49)
[2019-12-04] MEDS: SODIUM CHLORIDE 0.9% 1000ML 1,000 ML IV SCH (02:02)
[2019-12-04] MEDS: PIPERACILLIN/TAZOBACTAM 3.375 GM in DEXTROSE 5% 100 ML IV SCH ×3 (04:15→19:40)
[2019-12-04 06:18] LABS: Hematocrit (blood only) 31.4 % (42-52); Hemoglobin 10.7 g/dL (14.0-18.0); Mean Corpuscular Hemoglobin 30.3 pg (25-34); Mean Corpuscular Hgb Conc 34.1 g/dL (32-36); Mean Platelet Volume 9.5 fL (7.4-10.4); Platelet Count 243 K/uL (130-400); RDW Coefficient of Variation 14.8 % (11.5-14.5); Red Blood Count 3.53 M/uL (4.7-6.1); White Blood Count 12.11 K/uL (4.8-10.8)
[2019-12-04 06:50] LABS: BUN Creatinine Ratio 37.3 (10-20); Creatinine Clr Calc Pharmacy 85.8 ml/min; Est GFR (African American) 107.9; Est GFR (Non-African American) 93.1; Potassium 3.2 mmol/L (3.5-5.1)
[2019-12-04] MEDS ORDERED: POTASSIUM CHLORIDE 20 MEQ TABCR PO ONE (07:53)
[2019-12-04] MEDS: ATORVASTATIN 40 MG TAB PO SCH (09:03)
[2019-12-04] MEDS: FINASTERIDE 5 MG TAB PO SCH (09:03)
[2019-12-04] MEDS: TAMSULOSIN HCL 0.4 MG CAP PO SCH (09:03)
--- NOTE | 2019-12-04 12:00 | Pulmonology Progress Note ---
Date of Service December 04, 2019 Assessment & Plan (1) Mass of right lung: CT chest with contrast 12/02/2019: Patient has right hilar mass with likely endobronchial lesion in the RBI, there is central necrosis appreciated of the mass there is resulting postobstructive pneumonia as well of the right middle and lower lobe, there is mediastinal lymphadenopathy especially station 4R, 10 R, 7. It seems that the mass is encasing the great vessels. Mild air trapping. --Right hilar mass with mediastinal lymphadenopathy In a patient who is a smoker with hypercalcemia The likelihood of malignancy is very high, squamous cell carcinoma will be very high in differential Patient will benefit from EBUS with bronchoscopy to get tissue diagnosis. --Right lower lobe pneumonia Likely postobstructive Continue with antibiotics for total of 10 days --COPD Not in exacerbation Continue with inhaled treatment --Hypercalcemia Follow-up PTH and PTHrP Status post calcitonin on 12/03/2019 Would recommend consideration of biphosphonate IV 1 dose once PTH is back Plan: Patient's corrected calcium today is 10 which is within normal limits Patient is able to answer simple questions but I personally do not think the patient has the capacity to make complex decision like bronchoscopy. It is a bit challenging given that the patient has history of intellectual disability and has very difficult speech. Given the size of the mass with central necrosis and hypercalcemia if it is a cancer it will be nonoperable minimum stage IIIb. Overall prognosis of the patient is poor. Case management is on case to find out if the patient has capacity or if the patient has any governing body to make decisions for him. From pulmonary perspective I would recommend antibiotics for total of 10 days it can be transitioned to p.o. given the patient is hemodynamically stable and saturating well on room air. If we have somebody to consent for the procedure we will go ahead and do the procedure on Friday. If not then this could be done as an outpatient. Recommend non emergent MRI of the brain to rule out mets. PET CT as an outpatient. We will be following the case peripherally please keep us updated regarding patient's capacity to make decisions or somebody who could make decisions for the patient. Please note the above document was generated using voice recognition software. It may contain grammatical, syntax or spelling errors. (2) History of tobacco abuse: (3) Intellectual disability: (4) Altered mental status: Altered mental status type: disorientation Qualified Code(s): R41.0 - Disorientation, unspecified Admission and Anticipated Discharge Date Admission Date: December 02, 2019 Subjective Patient seen and examined at bedside. No acute distress, no adverse events overnight. Patient is sitting on the sofa chair. Patient has speech which is difficult to articulate. He is able to answer simple questions. Denies any chest pain, denies any shortness of breath, no nausea or vomiting. Good appetite. Denies any headache or blurry vision. Review of Systems Review of Systems: All systems reviewed & are unremarkable except as noted in HPI & below Physical Exam Physical Exam: Constitutional: No acute distress HEENT: EOMI, PERRLA, difficult to comprehend speech Respiratory system: Decreased air entry on the right side, positive crackles right lower lobe, no wheeze, no rhonchi CVS: S1-S2 positive, no murmurs or gallops Abdomen: Soft, nontender, nondistended, positive bowel sounds x4 Extremities: +2 pulses bilaterally radialis/ dorsalis pedis, no cyanosis, no edema Neuro: Awake alert oriented to self and place Psych: Normal mood and affect G/U: No Huang Skin: no rashes, warm and dry Lymphatic: no cervical or axillary lymphadenopathy Results & Data Results & Data ([facility]) Vital Signs (Past 12 Hours) Vital Signs Temp Pulse Pulse Resp BP Pulse Ox 12/04/19 10:24 82 12/04/19 07:03 36.5 C 78 18 100/62 99 12/04/19 03:24 97 H 12/04/19 03:04 36.4 C L 91 H 18 114/70 91 12/04/19 06:05 12/04/19 06:05 PG Care Time/CCT Total # of Minutes Spent Total Time Spent with Patient: Total time spent is greater than 50% in coordination of care (as documented) at patient's floor/unit and/or counseling patient: Coding Level of Care Code 98306 Subseq Hosp Care Lvl 3 Diagnoses Mass of right lung R91.8 History of tobacco abuse Z87.891 Intellectual disability F79 Altered mental status R41.0 Altered mental status type: disorientation
--- NOTE | 2019-12-04 14:21 | Hospitalist Progress Note ---
Date of Service December 04, 2019 Assessment & Plan (1) Severe sepsis: Met criteria for sever sepsis at time of admission per current [facility] guidelines- tachycardia, tachypnea, leukocytosis, elevated lactate. Blood cultures obtained. Received broad-spectrum IV antibiotics. Received fluid resuscitation. Hemodynamically stable. Serum lactate 3.2 and followed; repeat lactates 3.6, 1.4. Most likely source pneumonia as discussed below. WBC 20,310 --> 12,110. Afebrile. (2) Postobstructive pneumonia: Suspected underlying lung Ca. Continue IV piperacillin / tazobactam. (3) Abnormal CT scan, chest: CT chest: IMPRESSION: 1. Right hilar mass extensively involving the right lower and middle lobes, indistinguishable from underlying right hilar and subcarinal mediastinal lymphadenopathy. This should be considered primary bronchogenic neoplasm with lymphangitic metastatic disease until proven otherwise. 2. 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 3. 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 4. Additional findings as above. The report will be called/faxed according to standard departmental protocol. ACT 112: Negative or not required by law. Electronically signed by: Mateo Parr M.D. Former smoker. Findings worrisome for lung primary with bronchial obstruction and postobstructive pneumonia. Pulmonary Medicine consulted. Bronchoscopy indicated, but competence needs to be verified before obtaining informed consent. Check MRI of brain for staging purposes. Outpatient PET recommended. (4) Hypercalcemia: Serum calcium at time of admission 11.5. Alb = 2.8. Corrected Ca++ = 12.5. Ionized Ca++ 1.49. Received IV fluids and calcitonin. Calcium today = 9.0, corrected Ca = 10.0. Ionized Ca++ 1.26. Suspected underlying lung Ca. PTH normal. PTH related protein pending. Will likely need bisphosphonate to avoid recurrence. Follow. (5) Rhabdomyolysis: Found at home on floor. CPK 1296. Received IV fluids. Renal function stable. CPK 12/03 341. (6) Dysphagia: Difficulty swallowing noted by nursing staff. Seen by FITNESS LEADER. Beside swallowing evaluation performed. No apparent aspiration. (7) BPH (benign prostatic hyperplasia): Continue finasteride and tamsulosin. (8) Weight loss: Apparent weight loss. Suspected underlying malignancy. Review records. (9) Fall: Found at home after apparent fall. PT / OT. (10) Intellectual disability: History of cognitive disability. Deemed capable of decision making in the past, but may need reassessment. (11) COVID-19 virus not detected: No apparent risk factors for COVID-19. Testing recommended in light of anticipated bronchoscopy. SARS-CoV-2 nasopharyngeal PCR negative on 12/02/19. (12) DVT prophylaxis: Anticoagulants not ordered at time of admission due to possibility of invasive diagnostic procedures. SCD's. Ambulate. (13) Discharge planning issues: Discharge disposition to be determined. Unlikely that patient will be able to care for himself at home. Family Medicine follow-up with Dr. Farias. Admission and Anticipated Discharge Date Admission Date: December 02, 2019 Subjective Recheck for multiple problems. Pt seen in his room around 1040. No fever or chills. Occasional cough. Denies SOB. No chest pain. Review of Systems: Constitutional- no fever. Cardiac- no chest pain. Pulmonary- as noted above. GI- no nausea, vomiting, diarrhea, melena, hematochezia. - Huang cath. Otherwise, as noted above. Physical Exam Constitutional: + thin Eyes: + anicteric sclerae Respiratory: no respiratory distress Auscultation: + rales (right base) Cardiovascular: Rate/Rhythm: regular rate Extremities: no edema Gastrointestinal (Abdomen): normal bowel sounds, soft, nontender, no hepatosplenomegaly Musculoskeletal: Extremities: no cyanosis Psychiatric: Orientation: alert; + not oriented x 3 Results & Data Results & Data ([facility]) Vital Signs (Past 12 Hours) Vital Signs Temp Pulse Pulse Resp BP Pulse Ox 12/04/19 10:24 82 12/04/19 07:03 36.5 C 78 18 100/62 99 12/04/19 03:24 97 H 12/04/19 03:04 36.4 C L 91 H 18 114/70 91 Laboratory Results Laboratory Results - last 24 hr 12/04/19 12/04/19 12/04/19 06:05 06:05 06:05 WBC 12.11 H RBC 3.53 L Hgb 10.7 L Hct 31.4 L MCV 89.0 MCH 30.3 MCHC 34.1 RDW Std Deviation 48.0 H RDW Coeff of Robert 14.8 H Plt Count 243 MPV 9.5 Sodium 140 Potassium 3.2 L Chloride 110 H Carbon Dioxide 26 Anion Gap 4.0 BUN 23 H Creatinine 0.63 Est Cr Clr Drug Dosing 85.8 Est GFR ( Amer) 107.9 Est GFR (Non-Af Amer) 93.1 BUN/Creatinine Ratio 37.3 H Glucose 133 H Calcium 9.0 Ionized Calcium 1.26 PTH Intact PTH Related Protein 12/04/19 12/04/19 12:20 12:20 WBC RBC Hgb Hct MCV MCH MCHC RDW Std Deviation RDW Coeff of Robert Plt Count MPV Sodium Potassium Chloride Carbon Dioxide Anion Gap BUN Creatinine Est Cr Clr Drug Dosing Est GFR ( Amer) Est GFR (Non-Af Amer) BUN/Creatinine Ratio Glucose Calcium Ionized Calcium PTH Intact 22.1 PTH Related Protein Pending Microbiology 12/02/19 11:25 Blood Aerobic Blood Culture - Preliminary No growth in Aerobic bottle after 48 hours. 12/02/19 11:25 Blood Anaerobic Blood Culture - Final 12/02/19 11:36 Blood Aerobic Blood Culture - Preliminary No growth in Aerobic bottle after 48 hours. 12/02/19 11:36 Blood Anaerobic Blood Culture - Preliminary No growth in Anaerobic bottle after 48 hours. 12/02/19 13:10 Urine,Clean Catch Urine Culture - Final Three types of organisms present, all low counts probable skin jese. No further identifications or sensitivities to follow. (1) Rhabdomyolysis Encounter type: initial encounter Rhabdomyolysis type: traumatic Qualified Code(s): T79.6XXA - Traumatic ischemia of muscle, initial encounter (2) Fall Encounter type: initial encounter Qualified Code(s): W19.XXXA - Unspecified fall, initial encounter
[2019-12-05] MEDS: PIPERACILLIN/TAZOBACTAM 3.375 GM in DEXTROSE 5% 100 ML IV SCH ×3 (04:19→19:56)
[2019-12-05 07:17] LABS: Albumin Globulin Ratio 0.6 (0.9-2); Albumin Level 2.1 gm/dl (3.4-5.0); Bilirubin Direct 0.4 mg/dl (0-0.2); Bilirubin,Total 1.3 mg/dl (0.2-1); Calcium 8.8 mg/dl (8.5-10.1); Creatinine Clr Calc Pharmacy 84.5 ml/min; Est GFR (African American) 107.2; Est GFR (Non-African American) 92.5; Globulin 3.4 gm/dl (2.5-4.0); Potassium 3.1 mmol/L (3.5-5.1); Total Protein 5.5 gm/dl (6.4-8.2)
[2019-12-05] MEDS: TAMSULOSIN HCL 0.4 MG CAP PO SCH ×2 (08:23→08:38)
[2019-12-05] MEDS: ATORVASTATIN 40 MG TAB PO SCH ×2 (08:23→08:39)
[2019-12-05] MEDS: FINASTERIDE 5 MG TAB PO SCH ×2 (08:23→08:39)
[2019-12-05] MEDS: POTASSIUM CHLORIDE 20 MEQ/15 ML UDC PO SCH ×3 (11:03→20:03)
--- NOTE | 2019-12-05 12:35 | Pulmonology Progress Note ---
Date of Service December 05, 2019 Assessment & Plan (1) Mass of right lung: CT chest with contrast 12/02/2019: Patient has right hilar mass with likely endobronchial lesion in the RBI, there is central necrosis appreciated of the mass there is resulting postobstructive pneumonia as well of the right middle and lower lobe, there is mediastinal lymphadenopathy especially station 4R, 10 R, 7. It seems that the mass is encasing the great vessels. Mild air trapping. --Right hilar mass with mediastinal lymphadenopathy In a patient who is a smoker with hypercalcemia The likelihood of malignancy is very high, squamous cell carcinoma will be very high in differential Patient will benefit from EBUS with bronchoscopy to get tissue diagnosis. --Right lower lobe pneumonia Likely postobstructive Continue with antibiotics for total of 10 days --COPD Not in exacerbation Continue with inhaled treatment --Hypercalcemia PTH: 22.1(low normal) which is within normal limits, One would expect PTH to be very low in cases of secondary hypercalcemia Given PTH is normal, a component of primary hyperparathyroidism is also a possibility Wait for PTHrP Status post calcitonin on 12/03/2019 Plan: Patient is able to answer simple questions but I personally do not think the patient has the capacity to make complex decision like bronchoscopy. It is a bit challenging given that the patient has history of intellectual disability and has very difficult speech. Given the size of the mass with central necrosis and hypercalcemia if it is a cancer it will be nonoperable minimum stage IIIb. Overall prognosis of the patient is poor. Continue with antibiotics for total of 10 days. If we have somebody to consent for the procedure we will go ahead and do the procedure on Friday. If not then this could be done as an outpatient. Recommend non emergent MRI of the brain to rule out mets. PET CT as an ou tpatient. We will be following the case peripherally please keep us updated regarding patient's capacity to make decisions or somebody who could make decisions for the patient. Please note the above document was generated using voice recognition software. It may contain grammatical, syntax or spelling errors. Admission and Anticipated Discharge Date Admission Date: December 02, 2019 Subjective Patient seen and examined at bedside. No acute distress, no adverse events overnight. Answering simple questions. Denies any chest pain, no headache, no shortness of breath. Review of Systems Review of Systems: All systems reviewed & are unremarkable except as noted in HPI & below and Unobtainable due to mental health condition Physical Exam Physical Exam: Constitutional: No acute distress HEENT: EOMI, PERRLA, difficult to comprehend speech Respiratory system: Decreased air entry on the right side, positive crackles right lower lobe, no wheeze, no rhonchi CVS: S1-S2 positive, no murmurs or gallops Abdomen: Soft, nontender, nondistended, positive bowel sounds x4 Extremities: +2 pulses bilaterally radialis/ dorsalis pedis, no cyanosis, no edema Neuro: Awake alert oriented to self and place Psych: Normal mood and affect G/U: No Huang Skin: no rashes, warm and dry Lymphatic: no cervical or axillary lymphadenopathy Results & Data Results & Data ([facility]) Vital Signs (Past 12 Hours) Vital Signs Temp Pulse Resp BP Pulse Ox 12/05/19 11:12 36.7 C 83 18 125/74 96 12/05/19 07:23 36.5 C 78 20 124/76 98 12/05/19 03:33 36.6 C 80 18 111/72 98 12/04/19 06:05 12/05/19 06:24 PG Care Time/CCT Total # of Minutes Spent Total Time Spent with Patient: Total time spent is greater than 50% in coordination of care (as documented) at patient's floor/unit and/or counseling patient: Coding Level of Care Code 75021 Subseq Hosp Care Lvl 2 Diagnoses Mass of right lung R91.8
[2019-12-05 13:37] LABS: Folate (Folic Acid) 3.39 ng/ml (>5.38)
[2019-12-05] MEDS: POTASSIUM CHLORIDE 20 MEQ in LACTATED RINGER'S 1,000 ML IV SCH (14:39)
--- NOTE | 2019-12-05 20:06 | Hospitalist Progress Note ---
Date of Service December 05, 2019 Assessment & Plan (1) Severe sepsis: Met criteria for sever sepsis at time of admission per current [facility] guidelines- tachycardia, tachypnea, leukocytosis, elevated lactate. Blood cultures obtained. Received broad-spectrum IV antibiotics. Received fluid resuscitation. Hemodynamically stable. Serum lactate 3.2 and followed; repeat lactates 3.6, 1.4. Most likely source pneumonia as discussed below. WBC 20,310 --> 12,110. Afebrile. (2) Postobstructive pneumonia: Suspected underlying lung Ca. Continue IV piperacillin / tazobactam. (3) Abnormal CT scan, chest: CT chest: IMPRESSION: 1. Right hilar mass extensively involving the right lower and middle lobes, indistinguishable from underlying right hilar and subcarinal mediastinal lymphadenopathy. This should be considered primary bronchogenic neoplasm with lymphangitic metastatic disease until proven otherwise. 2. 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 3. 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 4. Additional findings as above. The report will be called/faxed according to standard departmental protocol. ACT 112: Negative or not required by law. Electronically signed by: Mateo Parr M.D. Former smoker. Findings worrisome for lung primary with bronchial obstruction and postobstructive pneumonia. Pulmonary Medicine consulted. Bronchoscopy indicated, but competence needs to be verified before obtaining informed consent. Check MRI of brain for staging purposes. Outpatient PET recommended. (4) Hypercalcemia: Serum calcium at time of admission 11.5. Alb = 2.8. Corrected Ca++ = 12.5. Ionized Ca++ 1.49. Received IV fluids and calcitonin. Calcium today = 8.8, alb 2.1, corrected Ca = 10.3. Ionized Ca++ 1.25. Suspected underlying lung Ca. PTH normal. PTH related protein pending. Will likely need bisphosphonate to avoid recurrence. Follow. (5) Hypokalemia: K today = 3.1. Replace, follow. (6) Rhabdomyolysis: Found at home on floor. CPK 1296. Received IV fluids. Renal function stable. CPK 12/03 341. (7) Dysphagia: Difficulty swallowing noted by nursing staff. Seen by MEDICAL RECORDS TECHNICIAN. Beside swallowing evaluation performed. No apparent aspiration. (8) BPH (benign prostatic hyperplasia): Continue finasteride and tamsulosin. (9) Weight loss: Apparent weight loss. Suspected underlying malignancy. Review records. (10) Fall: Found at home after apparent fall. PT / OT. (11) Intellectual disability: History of cognitive disability. Deemed capable of decision making in the past, but may need reassessment. Patient has difficulty expressing himself verbally, making determination of his orientation, understanding, judgement difficult. Best judgement of the undersigned is that he has the right to refuse diagnostic procedures or treatments, but that he does not have the capacity to give informed consent for invasive procedures or high-risk treatments. (12) COVID-19 virus not detected: No apparent risk factors for COVID-19. Testing recommended in light of anticipated bronchoscopy. SARS-CoV-2 nasopharyngeal PCR negative on 12/02/19. (13) DVT prophylaxis: Anticoagulants not ordered at time of admission due to possibility of invasive diagnostic procedures. SCD's. Ambulate. (14) Discharge planning issues: Discharge disposition to be determined. Unlikely that patient will be able to care for himself at home. May need appointed guardianship regarding health care decisions and safe living environment. Family Medicine follow-up with Dr. Farias. Admission and Anticipated Discharge Date Admission Date: December 02, 2019 Subjective Recheck for multiple problems. Pt seen in his room around 1100. No fever or chills. Occasional cough. Denies SOB. No chest pain. Refused to take meds this morning. Review of Systems: Constitutional- no fever. Cardiac- no chest pain. Pulmonary- as noted above. GI- no nausea, vomiting, diarrhea, melena, hematochezia. - condom cath. Otherwise, as noted above. Physical Exam Physical Exam: Patient declined more comprehensive exam. Constitutional: + thin Eyes: + anicteric sclerae Respiratory: no respiratory distress Musculoskeletal: Extremities: no cyanosis Psychiatric: Orientation: alert; + not oriented x 3 Results & Data Results & Data ([facility]) Vital Signs (Past 12 Hours) Vital Signs Temp Pulse Resp BP Pulse Ox 12/05/19 15:01 36.7 C 66 18 116/71 97 12/05/19 11:12 36.7 C 83 18 125/74 96 Laboratory Results Laboratory Results - last 24 hr 12/05/19 12/05/19 12/05/19 06:24 06:24 06:24 Sodium 138 Potassium 3.1 L Chloride 107 Carbon Dioxide 24 Anion Gap 6.0 BUN 13 Creatinine 0.64 Est Cr Clr Drug Dosing 84.5 Est GFR ( Amer) 107.2 Est GFR (Non-Af Amer) 92.5 BUN/Creatinine Ratio 20.0 Glucose 166 H Calcium 8.8 Ionized Calcium 1.25 Iron 31 L Transferrin 96 L Transferrin % Sat 23 Total Bilirubin 1.3 H Direct Bilirubin 0.4 H AST 35 ALT 28 Alkaline Phosphatase 79 Total Protein 5.5 L Albumin 2.1 L Globulin 3.4 Albumin/Globulin Ratio 0.6 L Vitamin B12 970 H Folate 3.39 L (1) Rhabdomyolysis Encounter type: initial encounter Rhabdomyolysis type: traumatic Qualified Code(s): T79.6XXA - Traumatic ischemia of muscle, initial encounter (2) Fall Encounter type: initial encounter Qualified Code(s): W19.XXXA - Unspecified fall, initial encounter
[2019-12-06] MEDS: POTASSIUM CHLORIDE 20 MEQ in LACTATED RINGER'S 1,000 ML IV SCH ×3 (00:43→21:02)
[2019-12-06] MEDS: PIPERACILLIN/TAZOBACTAM 3.375 GM in DEXTROSE 5% 100 ML IV SCH ×3 (04:35→21:02)
[2019-12-06] MEDS: FINASTERIDE 5 MG TAB PO SCH ×2 (07:32→12:13)
[2019-12-06] MEDS: POTASSIUM CHLORIDE 20 MEQ/15 ML UDC PO SCH ×5 (07:32→21:14)
[2019-12-06] MEDS: ATORVASTATIN 40 MG TAB PO SCH ×2 (07:32→12:13)
[2019-12-06] MEDS: TAMSULOSIN HCL 0.4 MG CAP PO SCH ×2 (07:33→12:13)
[2019-12-06 08:23] LABS: BUN Creatinine Ratio 18.2 (10-20); Calcium 8.7 mg/dl (8.5-10.1); Creatinine Clr Calc Pharmacy 98.3 ml/min; Est GFR (African American) 114.1; Est GFR (Non-African American) 98.4; Potassium 3.3 mmol/L (3.5-5.1)
--- NOTE | 2019-12-06 08:45 | Hospitalist Progress Note ---
Date of Service December 06, 2019 Assessment & Plan (1) Severe sepsis: Met criteria for sever sepsis at time of admission per current [facility] guidelines- tachycardia, tachypnea, leukocytosis, elevated lactate. Blood cultures obtained. Received broad-spectrum IV antibiotics. Received fluid resuscitation. Hemodynamically stable. Serum lactate 3.2 and followed; repeat lactates 3.6, 1.4. Most likely source pneumonia as discussed below. WBC 20,310 --> 12,110. Afebrile. (2) Postobstructive pneumonia: Suspected underlying lung Ca. Continue IV piperacillin / tazobactam. (3) Abnormal CT scan, chest: CT chest: IMPRESSION: 1. Right hilar mass extensively involving the right lower and middle lobes, indistinguishable from underlying right hilar and subcarinal mediastinal lymphadenopathy. This should be considered primary bronchogenic neoplasm with lymphangitic metastatic disease until proven otherwise. 2. 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 3. 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 4. Additional findings as above. The report will be called/faxed according to standard departmental protocol. ACT 112: Negative or not required by law. Electronically signed by: Mateo Parr M.D. Former smoker. Findings worrisome for lung primary with bronchial obstruction and postobstructive pneumonia. Pulmonary Medicine consulted. Bronchoscopy indicated, but competence needs to be verified before obtaining informed consent. Check MRI of brain for staging purposes. Outpatient PET recommended. (4) Hypercalcemia: Serum calcium at time of admission 11.5. Alb = 2.8. Corrected Ca++ = 12.5. Ionized Ca++ 1.49. Received IV fluids and calcitonin. Calcium today = 8.8, alb 2.1, corrected Ca = 10.3. Ionized Ca++ 1.25. Suspected underlying lung Ca. PTH normal. PTH related protein pending. Will likely need bisphosphonate to avoid recurrence. Follow. (5) Hypokalemia: K today = 3.1. Replace, follow. (6) Rhabdomyolysis: Found at home on floor. CPK 1296. Received IV fluids. Renal function stable. CPK 12/03 341. (7) Dysphagia: Difficulty swallowing noted by nursing staff. Seen by ROUNDING MACHINE TENDER. Beside swallowing evaluation performed. No apparent aspiration. (8) BPH (benign prostatic hyperplasia): Continue finasteride and tamsulosin. (9) Weight loss: Apparent weight loss. Suspected underlying malignancy. Reviewed clinic records. 11/25/18 96 kg 06/03/19 81 kg 09/15/19 75 kg Wt now 65 kg. Severe protein-calorie malnutrition. Consult Nutrition. (10) Fall: Found at home after apparent fall. PT / OT. (11) Intellectual disability: History of cognitive disability. Deemed capable of decision making in the past, but may need reassessment. Patient has difficulty expressing himself verbally, making determination of his orientation, understanding, judgement difficult. Best judgement of the undersigned is that he has the right to refuse diagnostic procedures or treatments, but that he does not have the capacity to give informed consent for invasive procedures or high-risk treatments. (12) COVID-19 virus not detected: No apparent risk factors for COVID-19. Testing recommended in light of anticipated bronchoscopy. SARS-CoV-2 nasopharyngeal PCR negative on 12/02/19. (13) DVT prophylaxis: Anticoagulants not ordered at time of admission due to possibility of invasive diagnostic procedures. SCD's. Ambulate. (14) Discharge planning issues: Discharge disposition to be determined. Unlikely that patient will be able to care for himself at home. May need appointed guardianship regarding health care decisions and safe living environment. Family Medicine follow-up with Dr. Farias. Admission and Anticipated Discharge Date Admission Date: December 02, 2019 Results & Data Results & Data ([facility]) Vital Signs (Past 12 Hours) Vital Signs Temp Pulse Resp BP BP Pulse Ox 12/06/19 06:58 36.7 C 81 18 120/76 96 12/05/19 22:20 36.6 C 87 18 123/74 97 (1) Rhabdomyolysis Encounter type: initial encounter Rhabdomyolysis type: traumatic Qualified Code(s): T79.6XXA - Traumatic ischemia of muscle, initial encounter (2) Fall Encounter type: initial encounter Qualified Code(s): W19.XXXA - Unspecified fall, initial encounter
--- NOTE | 2019-12-06 11:30 | XRay Report ---
XR chest 1V portable CLINICAL HISTORY: cough, worsening SOB COMPARISON STUDY: Chest CT and chest radiograph December 02, 2019 FINDINGS: Right lung volume loss has developed. Right lower lung airspace opacity has increased. The known right hilar mass is partially obscured on this examination. Left lung is clear. There is no pne umothorax. Cardiac size is normal. IMPRESSION: Interval development of right lung volume loss with increasing right lower lung opacity which favors right lower lobe and right middle lobe atelectasis. This obscures the known right hilar mass. ACT 112: Negative or not required by law. Electronically signed by: Pablo Mulligan M.D. 12/06/2019 11:29 AM
--- NOTE | 2019-12-06 14:14 | Pulmonology Progress Note ---
Date of Service December 06, 2019 Assessment & Plan (1) Mass of right lung: CT chest with evidence of a right-sided lung mass with adjacent adenopathy. --Right hilar mass with mediastinal lymphadenopathy In a patient who is a smoker with hypercalcemia The likelihood of malignancy is very high, squamous cell carcinoma will be very high in differential Patient will benefit from EBUS with bronchoscopy to get tissue diagnosis. --Right lower lobe pneumonia Likely postobstructive Continue with antibiotics for total of 10 days --COPD Not in exacerbation Continue with inhaled treatment --Hypercalcemia PTH: 22.1(low normal) which is within normal limits, One would expect PTH to be very low in cases of secondary hypercalcemia Given PTH is normal, a component of primary hyperparathyroidism is also a possibility Wait for PTHrP Status post calcitonin on 12/03/2019 Plan: Patient does not have capacity to make decisions with regards to endobronchial biopsy. Performance status overall appears poor. Perhaps a more palliative approach may be appropriate in this case. Will defer any procedures at this time until a decision maker is established. Recommend involving our hematology/oncology colleagues given his underlying hypercalcemia that is likely related to malignancy. We would be happy to assist in the future if needed. Please call us with questions. Thank you. Please note the above document was generated using voice recognition software. It may contain grammatical, syntax or spelling errors. Admission and Anticipated Discharge Date Admission Date: December 02, 2019 Subjective Patient laying in his chair. He is sleeping. I did wake him up and he denied any complaints. He does mumble his speech. When asked if he has any chest pain or shortness of breath, he said "no". Physical Exam Physical Exam: Constitutional: No acute distress HEENT: EOMI, PERRLA, difficult to comprehend speech Respiratory system: Decreased air entry on the right side, positive crackles right lower lobe, no wheeze, no rhonchi CVS: S1-S2 positive, no murmurs or gallops Abdomen: Soft, nontender, nondistended, positive bowel sounds x4 Extremities: +2 pulses bilaterally radialis/ dorsalis pedis, no cyanosis, no edema Neuro: Speech is mumbled. Does not appear focal. Seems alert and awake. Psych: Normal mood and affect G/U: No Huang Skin: no rashes, warm and dry Lymphatic: no cervical or axillary lymphadenopathy Results & Data Results & Data ([facility]) Vital Signs (Past 12 Hours) Vital Signs Temp Pulse Resp BP Pulse Ox 12/06/19 06:58 98.1 F 81 18 120/76 96 PG Care Time/CCT Total # of Minutes Spent Total Time Spent with Patient: Total time spent is greater than 50% in coordination of care (as documented) at patient's floor/unit and/or counseling patient: Coding Level of Care Code 43245 Subseq Hosp Care Lvl 2 Diagnoses Mass of right lung R91.8
--- NOTE | 2019-12-06 20:51 | Hospitalist Progress Note ---
Date of Service December 06, 2019 Assessment & Plan (1) Severe sepsis: Met criteria for sever sepsis at time of admission per current [facility] guidelines- tachycardia, tachypnea, leukocytosis, elevated lactate. Blood cultures obtained. Received broad-spectrum IV antibiotics. Received fluid resuscitation. Hemodynamically stable. Serum lactate 3.2 and followed; repeat lactates 3.6, 1.4. Most likely source pneumonia as discussed below. WBC 20,310 --> 12,110. Afebrile. (2) Postobstructive pneumonia: Suspected underlying lung Ca. Continue IV piperacillin / tazobactam. (3) Abnormal CT scan, chest: CT chest: IMPRESSION: 1. Right hilar mass extensively involving the right lower and middle lobes, indistinguishable from underlying right hilar and subcarinal mediastinal lymphadenopathy. This should be considered primary bronchogenic neoplasm with lymphangitic metastatic disease until proven otherwise. 2. 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 3. 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 4. Additional findings as above. The report will be called/faxed according to standard departmental protocol. ACT 112: Negative or not required by law. Electronically signed by: Mateo Parr M.D. Former smoker. Findings worrisome for lung primary with bronchial obstruction and postobstructive pneumonia. Pulmonary Medicine consulted. Bronchoscopy indicated, but competence needs to be verified before obtaining informed consent. Check MRI of brain for staging purposes. Outpatient PET recommended. Consult Heme / Onc once better sense of patient's decision making and plan. (4) Hypercalcemia: Serum calcium at time of admission 11.5. Alb = 2.8. Corrected Ca++ = 12.5. Ionized Ca++ 1.49. Received IV fluids and calcitonin. Calcium today = 8.7, alb 2.0, corrected Ca = 10.3. Ionized Ca++ 1.25. Suspected underlying lung Ca. PTH normal. PTH related protein pending. Will likely need bisphosphonate to avoid recurrence. Follow. (5) Hypokalemia: K as low as 3.1. Receiving replacement. K today = 3.3. Follow. (6) Rhabdomyolysis: Found at home on floor. CPK 1296. Received IV fluids. Renal function stable. CPK 12/03 341. (7) Dysphagia: Difficulty swallowing noted by nursing staff. Seen by VARITYPE OPERATOR. Beside swallowing evaluation performed. No apparent aspiration at that time. Ongoing aspiration precautions. (8) BPH (benign prostatic hyperplasia): Continue finasteride and tamsulosin. (9) Weight loss: Apparent weight loss. Suspected underlying malignancy. Reviewed clinic records. 11/25/18 96 kg 06/03/19 81 kg 09/15/19 75 kg Wt now 65 kg. Severe protein-calorie malnutrition. Consult Nutrition. (10) Fall: Found at home after apparent fall. PT / OT. (11) Intellectual disability: History of cognitive disability. Deemed capable of decision making in the past, but may need reassessment. Patient has difficulty expressing himself verbally, making determination of his orientation, understanding, judgement difficult. Best judgement of the undersigned is that he has the right to refuse diagnostic procedures or treatments, but that he does not have the capacity to give informed consent for invasive procedures or high-risk treatments. (12) COVID-19 virus not detected: No apparent risk factors for COVID-19. Testing recommended in light of anticipated bronchoscopy. SARS-CoV-2 nasopharyngeal PCR negative on 12/02/19. (13) DVT prophylaxis: Anticoagulants not ordered at time of admission due to possibility of invasive diagnostic procedures. SCD's. Ambulate. (14) Discharge planning issues: Discharge disposition to be determined. Unlikely that patient will be able to care for himself at home. May need appointed guardianship regarding health care decisions and safe living environment. Family Medicine follow-up with Dr. Farias. Decisions need to be made regarding diagnostic procedures, possible treatment, possible palliative care, disposition. Try to arrange for meeting with caregiver (who knows him best) and others to try to assess pt's understanding of his medical condition, ability to make informed decisions, etc. Will try to include Case Management, Palliative Care, Pulmonary Medicine. Admission and Anticipated Discharge Date Admission Date: December 02, 2019 Subjective Recheck for multiple problems. Pt seen in his room around 1100. Coughing episode this morning while eating breakfast. No fever or chills. Denies SOB. No chest pain. Review of Systems: Constitutional- no fever. Cardiac- no chest pain. Pulmonary- as noted above. GI- no nausea, vomiting, diarrhea, melena, hematochezia. - condom cath. Otherwise, as noted above. Physical Exam Constitutional: + thin Eyes: + anicteric sclerae Respiratory: no respiratory distress Auscultation: + rhonchi (right base) Cardiovascular: Rate/Rhythm: regular rate Extremities: no edema Gastrointestinal (Abdomen): normal bowel sounds, soft, nontender, no hepatosplenomegaly Musculoskeletal: Extremities: no cyanosis Psychiatric: Orientation: alert; + not oriented x 3 Results & Data [facility] Vital Signs (Past 12 Hours) Vital Signs Temp Pulse Resp BP Pulse Ox 12/06/19 15:58 36.7 C 84 16 115/72 99 Laboratory Results Laboratory Results - last 24 hr 12/06/19 12/06/19 07:17 07:17 Sodium 139 Potassium 3.3 L Chloride 105 Carbon Dioxide 25 Anion Gap 8.0 BUN 10 Creatinine 0.55 L Est Cr Clr Drug Dosing 98.3 Est GFR ( Amer) 114.1 Est GFR (Non-Af Amer) 98.4 BUN/Creatinine Ratio 18.2 Glucose 119 H Calcium 8.7 Ionized Calcium 1.25 Albumin 2.0 L Diagnostic Findings PORTABLE CHEST X-RAY FINDINGS: Right lung volume loss has developed. Right lower lung airspace opacity has increased. The known right hilar mass is partially obscured on this examination. Left lung is clear. There is no pneumothorax. Cardiac size is normal. IMPRESSION: Interval development of right lung volume loss with increasing right lower lung opacity which favors right lower lobe and right middle lobe atelectasis. This obscures the known right hilar mass. ACT 112: Negative or not required by law. Electronically signed by: Pablo Mulligan M.D. 12/06/2019 11:29 AM (1) Rhabdomyolysis Encounter type: initial encounter Rhabdomyolysis type: traumatic Qualified Code(s): T79.6XXA - Traumatic ischemia of muscle, initial encounter (2) Fall Encounter type: initial encounter Qualified Code(s): W19.XXXA - Unspecified fall, initial encounter
[2019-12-07] MEDS: PIPERACILLIN/TAZOBACTAM 3.375 GM in DEXTROSE 5% 100 ML IV SCH ×3 (03:42→19:31)
[2019-12-07] MEDS: POTASSIUM CHLORIDE 20 MEQ in LACTATED RINGER'S 1,000 ML IV SCH ×2 (06:38→17:05)
[2019-12-07] MEDS: FINASTERIDE 5 MG TAB PO SCH (07:52)
[2019-12-07] MEDS: TAMSULOSIN HCL 0.4 MG CAP PO SCH (07:52)
[2019-12-07] MEDS: ATORVASTATIN 40 MG TAB PO SCH (07:52)
[2019-12-07] MEDS: POTASSIUM CHLORIDE 20 MEQ/15 ML UDC PO SCH ×3 (07:53→20:04)
--- NOTE | 2019-12-07 15:25 | Hospitalist Progress Note ---
Date of Service December 07, 2019 Assessment & Plan (1) Severe sepsis: Met criteria for sever sepsis at time of admission per current [facility] guidelines- tachycardia, tachypnea, leukocytosis, elevated lactate. Blood cultures obtained. Received broad-spectrum IV antibiotics. Received fluid resuscitation. Hemodynamically stable. Serum lactate 3.2 and followed; repeat lactates 3.6, 1.4. Most likely source pneumonia as discussed below. WBC 20,310 --> 12,110. Afebrile. (2) Postobstructive pneumonia: Suspected underlying lung Ca. Continue IV piperacillin / tazobactam. PO Rx considered, but (1) has dysphagia and (2) chest x-ray and exam worse. (3) Abnormal CT scan, chest: CT chest: IMPRESSION: 1. Right hilar mass extensively involving the right lower and middle lobes, indistinguishable from underlying right hilar and subcarinal mediastinal lymphadenopathy. This should be considered primary bronchogenic neoplasm with lymphangitic metastatic disease until proven otherwise. 2. 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 3. 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 4. Additional findings as above. The report will be called/faxed according to standard departmental protocol. ACT 112: Negative or not required by law. Electronically signed by: Mateo Parr M.D. Former smoker. Findings worrisome for lung primary with bronchial obstruction and postobstructi ve pneumonia. Pulmonary Medicine consulted. Bronchoscopy indicated, but competence needs to be verified before obtaining informed consent. Check MRI of brain for staging purposes. Outpatient PET recommended. Consult Heme / Onc once better sense of patient's decision making and plan as discussed below. (4) Hypercalcemia: Serum calcium at time of admission 11.5. Alb = 2.8. Corrected Ca++ = 12.5. Ionized Ca++ 1.49. Received IV fluids and calcitonin. Calcium 12/05 = 8.7, alb 2.0, corrected Ca = 10.3. Ionized Ca++ 1.25. Suspected underlying lung Ca. PTH normal. PTH related protein pending. Recheck labs tomorrow. Will likely need bisphosphonate to avoid recurrence. Long-term management to be determined (Heme/Onc? Nephrology?). Follow. (5) Hypokalemia: K as low as 3.1. Receiving replacement. K yesterday = 3.3. Follow. (6) Rhabdomyolysis: Found at home on floor. CPK 1296. Received IV fluids. Renal function stable. CPK 12/03 341. (7) Dysphagia: Difficulty swallowing noted by nursing staff. Seen by CASINO FLOOR WALKER. Beside swallowing evaluation performed. No apparent aspiration at that time. Ongoing aspiration precautions. (8) BPH (benign prostatic hyperplasia): Continue finasteride and tamsulosin. (9) Weight loss: Apparent weight loss. Suspected underlying malignancy. Reviewed clinic records. 11/25/18 96 kg 06/03/19 81 kg 09/15/19 75 kg Wt now 65 kg. => wt down 31 kg in 12 months. Severe protein-calorie malnutrition. Nutrition consulted. Receiving nutritional supplements. (10) Fall: Found at home after apparent fall. PT / OT. (11) Intellectual disability: History of cognitive disability. Deemed capable of decision making in the past, but may need reassessment. Patient has difficulty expressing himself verbally, making determination of his orientation, understanding, judgement difficult. Best judgement of the undersigned is that he has the right to refuse diagnostic procedures or treatments, but that he does not have the capacity to give informed consent for invasive procedures or high-risk treatments. (12) COVID-19 virus not detected: No apparent risk factors for COVID-19. Testing recommended in light of anticipated bronchoscopy. SARS-CoV-2 nasopharyngeal PCR negative on 12/02/19. (13) DVT prophylaxis: Anticoagulants not ordered at time of admission due to possibility of invasive diagnostic procedures. SCD's. Ambulate. (14) Discharge planning issues: Discharge disposition to be determined. Unlikely that patient will be able to care for himself at home. May need appointed guardianship regarding health care decisions and safe living environment. Family Medicine follow-up with Dr. Farias. Decisions need to be made regarding diagnostic procedures, possible treatment, possible palliative care, disposition. Try to arrange for meeting with caregiver Gabby (who knows him best) and others to try to assess pt's understanding of his medical condition, ability to make informed decisions, etc. Will try to include Case Management, Palliative Care, Pulmonary Medicine. Possible outcomes: aggressive evaluation and treatment, with consent from patient or surrogate palliative care Admission and Anticipated Discharge Date Admission Date: December 02, 2019 Subjective Recheck for multiple problems. Pt seen in his room around 1420. No fever or chills. Occasional cough. Denies SOB. No chest pain. Review of Systems: Constitutional- no fever. Cardiac- no chest pain. Pulmonary- as noted above. GI- no nausea, vomiting, diarrhea, melena, hematochezia. - condom cath. Otherwise, as noted above. Physical Exam Constitutional: + thin Eyes: + anicteric sclerae Respiratory: no respiratory distress Auscultation: + rhonchi (right base) Cardiovascular: Rate/Rhythm: regular rate Extremities: no edema Gastrointestinal (Abdomen): normal bowel sounds, soft, nontender, no hepatosplenomegaly Musculoskeletal: Extremities: no cyanosis Psychiatric: Orientation: alert; + not oriented x 3 Results & Data Results & Data ([facility]) Vital Signs (Past 12 Hours) Vital Signs Temp Pulse Resp BP Pulse Ox 12/07/19 15:06 36.8 C 87 18 108/66 95 12/07/19 07:36 36.8 C 76 18 106/62 99 (1) Rhabdomyolysis Encounter type: initial encounter Rhabdomyolysis type: traumatic Qualified Code(s): T79.6XXA - Traumatic ischemia of muscle, initial encounter (2) Fall Encounter type: initial encounter Qualified Code(s): W19.XXXA - Unspecified fall, initial encounter
[2019-12-08] MEDS: PIPERACILLIN/TAZOBACTAM 3.375 GM in DEXTROSE 5% 100 ML IV SCH ×3 (03:18→20:10)
[2019-12-08] MEDS: POTASSIUM CHLORIDE 20 MEQ in LACTATED RINGER'S 1,000 ML IV SCH ×2 (03:18→12:12)
[2019-12-08] MEDS: ATORVASTATIN 40 MG TAB PO SCH (07:28)
[2019-12-08] MEDS: POTASSIUM CHLORIDE 20 MEQ/15 ML UDC PO SCH ×3 (07:28→20:10)
[2019-12-08] MEDS: FINASTERIDE 5 MG TAB PO SCH (07:28)
[2019-12-08] MEDS: TAMSULOSIN HCL 0.4 MG CAP PO SCH (07:28)
[2019-12-08 08:31] LABS: Hematocrit (blood only) 35.1 % (42-52); Hemoglobin 11.5 g/dL (14.0-18.0); Mean Corpuscular Hemoglobin 30.1 pg (25-34); Mean Corpuscular Hgb Conc 32.8 g/dL (32-36); Mean Corpuscular Volume 91.9 fL (80-100); Mean Platelet Volume 10.1 fL (7.4-10.4); Platelet Count 252 K/uL (130-400); RDW Coefficient of Variation 15.5 % (11.5-14.5); RDW Standard Deviation 51.1 fL (36.4-46.3); Red Blood Count 3.82 M/uL (4.7-6.1); White Blood Count 18.46 K/uL (4.8-10.8)
[2019-12-08 09:00] LABS: Albumin Level 2.2 gm/dl (3.4-5.0); BUN Creatinine Ratio 13.6 (10-20); Calcium 9.6 mg/dl (8.5-10.1); Creatinine Clr Calc Pharmacy 91.7 ml/min; Est GFR (African American) 110.8; Est GFR (Non-African American) 95.6; Potassium 4.3 mmol/L (3.5-5.1)
--- NOTE | 2019-12-08 12:24 | Hospitalist Progress Note ---
Date of Service December 08, 2019 Assessment & Plan (1) Severe sepsis: 2/2 pneumonia, resuscitated. (2) Postobstructive pneumonia: Suspected underlying lung Ca. Continue IV piperacillin / tazobactam. PO Rx considered, but (1) has dysphagia and (2) chest x-ray and exam worse. Pulmonology consulted and following. Multi-D meeting planned for tomorrow to try and consent patient for bronchoscopy procedure. (3) Mass of right lung: ? EBUS if patient can give informed consent. Multi-D meeting tomorrow with caretakers who know him. (4) Hypercalcemia: Corrected with IVF and calcitonin. Suspect underlying malignancy. PTHrp pending. (5) Rhabdomyolysis: nontraumatic rhabdomyolysis after being found down on the floor at home after a fall. Treated with IVF and resolved. Renal function is at baseline. (6) Dysphagia: Difficulty swallowing noted by nursing staff. Seen by BROADCAST SUPERVISOR. Beside swallowing evaluation performed. No apparent aspiration at that time. Ongoing aspiration precautions. (7) Severe protein-calorie malnutrition: Suspected underlying malignancy. (8) BPH (benign prostatic hyperplasia): Continue finasteride and tamsulosin. (9) Intellectual disability: History of cognitive disability. Deemed capable of decision making in the past, but may need reassessment. Patient has difficulty expressing himself verbally, making determination of his orientation, understanding, judgement difficult. Best judgement of the undersigned is that he has the right to refuse diagnostic procedures or treatments, but that he does not have the capacity to give informed consent for invasive procedures or high-risk treatments. (10) COVID-19 virus not detected: No apparent risk factors for COVID-19. Testing recommended in light of anticipated bronchoscopy. SARS-CoV-2 nasopharyngeal PCR negative on 12/02/19. (11) DVT prophylaxis: Anticoagulants not ordered at time of admission due to possibility of invasive diagnostic procedures. SCDs with quick transition to Lovenox after biopsy once plan is determined whether or not to press forward with procedure. Full Code Dispo-uncertain. Pt lives alone but may need placement at this point. Patient is a max assist and unable to care for himself. Aside from the intellectual disability and no guardian or family to help him make medical decisions or support him overall, he now has a lung mass which is high risk for malignancy. The biopsy cannot be performed without appropriate informed consent. The patient stated that he "knew I was in trouble" when I spoke of the mass. But it is not clear that he comprehends the situation. Will involve palliative care at this time to offer guidance and thoughts. Bhavani Brown DO [facility] Admission and Anticipated Discharge Date Admission Date: December 02, 2019 Subjective feeling well today denies pain upset because he feels as though he went on himself. upset about the arrangement of room furniture happy about his cat whom he points to a picture of on his table. denies pain tried to discuss lung mass with him and he tries to look away. Says "i knew i was in trouble" but that's about it. Review of Systems Review of Systems: Other (limited in setting of intellectual disability and limited ability to verbally express himself.) Physical Exam Physical Exam: CONSTITUTIONAL: thin, frail, vitals as above, no acute distress EYES: normal conjunctivae, no scleral icterus ENT: external ear and nose normal, poor dentition RESPIRATORY: coarse rhonchi throughout. clear to auscultation bilaterally, no crackles, rales or wheezes, normal respiratory effort CARDIOVASCULAR: regular rate and rhythm, S1 and 2 heard without murmurs, gallops or rubs, no JVD, no peripheral edema GASTROINTESTINAL: soft, nontender, nondistended, no guarding. MUSCULOSKELETAL: significant physical weakness, contracted lower extremities that are rigid and dont move well. Cannot move around bed independently. SKIN: warm and dry NEUROLOGIC: CN 2-12 grossly intact, normal cognition, difficulty articulating words. PSYCHIATRIC: alert and cooperative. Appears calm and able to communicate multiple things to me but complex concepts are too much. Results & Data Results & Data ([facility]) Vital Signs (Past 12 Hours) Vital Signs Temp Pulse Resp BP Pulse Ox 12/08/19 07:18 36.3 C L 79 18 126/83 97 Laboratory Results Short CBC 12/08/19 Range/Units 08:06 WBC 18.46 H (4.8-10.8) K/uL Hgb 11.5 L (14.0-18.0) g/dL Hct 35.1 L (42-52) % Plt Count 252 (130-400) K/uL BMP 12/08/19 08:06 Sodium 134 L Potassium 4.3 Chloride 103 Carbon Dioxide 23 BUN 8 Creatinine 0.59 L Glucose 127 H Calcium 9.6 Liver Function 12/08/19 Range/Units 08:06 Albumin 2.2 L (3.4-5.0) gm/dl Medications Administered Current Inpatient Medications Acetaminophen (Tylenol) 650 mg PO Q4H PRN PRN Reason: Pain or Fever Stop: 01/01/20 20:21 Atorvastatin Calcium (Lipitor) 40 mg PO DAILY@0800 [facility] Stop: 01/02/20 07:59 Last Admin: 12/08/19 07:28 Dose: 40 mg Documented by: Finasteride (Proscar) 5 mg PO DAILY@0800 [facility] Stop: 01/02/20 07:59 Last Admin: 12/08/19 07:28 Dose: 5 mg Documented by: Piperacillin Sod/Tazobactam (Sod 3.375 gm/ Dextrose) 115 mls @ 28.75 mls/hr IV Q8@0400,1200,2000 [facility]; Protocol Stop: 12/09/19 20:44 Last Admin: 12/08/19 12:12 Dose: 28.8 mls/hr Documented by: Potassium Chloride 20 meq/ (Lactated Ringer's) 1,010 mls @ 100 mls/hr IV .Q10H6M [facility] Stop: 01/04/20 14:59 Last Admin: 12/08/19 12:12 Dose: 100 mls/hr Documented by: Miscellaneous Information (Consult) 1 ea N/A UD PRN PRN Reason: Consult Stop: 01/01/20 13:00 Potassium Chloride (Harmony Ciel Elix) 20 meq PO TID [facility] Stop: 01/04/20 08:59 Last Admin: 12/08/19 07:28 Dose: 20 meq Documented by: Tamsulosin HCl (Flomax) 0.4 mg PO DAILY@0800 [facility] Stop: 01/02/20 07:59 Last Admin: 12/08/19 07:28 Dose: 0.4 mg Documented by: (1) Rhabdomyolysis Encounter type: initial encounter Rhabdomyolysis type: traumatic Qualified Code(s): T79.6XXA - Traumatic ischemia of muscle, initial encounter
[2019-12-09] MEDS: PIPERACILLIN/TAZOBACTAM 3.375 GM in DEXTROSE 5% 100 ML IV SCH ×3 (03:45→20:21)
[2019-12-09] MEDS: FINASTERIDE 5 MG TAB PO SCH (07:45)
[2019-12-09] MEDS: POTASSIUM CHLORIDE 20 MEQ/15 ML UDC PO SCH ×3 (07:45→20:21)
[2019-12-09] MEDS: ATORVASTATIN 40 MG TAB PO SCH (07:45)
[2019-12-09] MEDS: TAMSULOSIN HCL 0.4 MG CAP PO SCH (07:45)
[2019-12-09 08:17] LABS: Basophils # (auto) 0.01 K/uL (0-0.2); Basophils % (auto) 0.1 %; Eosinophils # (auto) 0.21 K/uL (0-0.5); Eosinophils % (auto) 1.4 %; Hematocrit (blood only) 32.6 % (42-52); Hemoglobin 10.8 g/dL (14.0-18.0); Immature Granulocytes % (auto) 2.1 %; Lymphocytes # (auto) 1.11 K/uL (1.2-3.4); Lymphocytes % (auto) 7.6 %; Mean Corpuscular Hemoglobin 30.2 pg (25-34); Mean Corpuscular Hgb Conc 33.1 g/dL (32-36); Mean Corpuscular Volume 91.1 fL (80-100); Mean Platelet Volume 10.1 fL (7.4-10.4); Monocytes # (auto) 1.45 K/uL (0.11-0.59); Monocytes % (auto) 9.9 %; Neutrophils # (auto) 11.53 K/uL (1.4-6.5); Neutrophils % (auto) 78.9 %; Platelet Count 249 K/uL (130-400); RDW Coefficient of Variation 15.5 % (11.5-14.5); RDW Standard Deviation 50.4 fL (36.4-46.3); Red Blood Count 3.58 M/uL (4.7-6.1); White Blood Count 14.61 K/uL (4.8-10.8)
[2019-12-09 08:41] LABS: BUN Creatinine Ratio 15.8 (10-20); Calcium 9.5 mg/dl (8.5-10.1); Creatinine Clr Calc Pharmacy 100.2 ml/min; Est GFR (African American) 114.9; Est GFR (Non-African American) 99.2; Potassium 3.9 mmol/L (3.5-5.1)
--- NOTE | 2019-12-09 14:44 | Palliative Care Consultation ---
Date of Consultation December 09, 2019 Assessment & Plan (1) Goals of care, counseling/discussion: -79 year old male patient with PMH intellectual disability, COPD, BPH, dyslipidemia, and others, presented to the ED with complaint of fall. It is reported for the past 1 to 2 weeks pt had sore throat, cough, reportedly had a choking episode a week or so prior to arrival. Patient has a caregiver/compensation associate through [facility] services, as well as a caseworker protective services. Caregivers come into his home 8 hours per week. Main caregiver Gabby reports patient has been declining over the last month, doesn't believe he was taking his medications, not eating/drinking well, increased weakness. Patient wouldn't let people into his home for four days, until someone knocked on the door and patient yelled that he was on the floor and couldn't get up. Patient was brought to hospital. In ED, patient afebrile, slightly tachycardic, WBC 20k, Ca 11.5, glucose 156 otherwise no other significant electrolyte abnormality, lactic acid 3.2, UA abnormal, negative influenza PCR. CPK 1296-->341 after IVF, Cr 1.25 on admission, now 0.54. CXR "1. 4.7 cm masslike opacity of the right hilum is suspicious for a bronchogenic neoplasm. Right perihilar, right midlung and right lung base ill- defined opacities may reflect associated postobstructive pneumonitis or asymmetric pulmonary edema. Correlation with contrast-enhanced CT of the chest is needed. 2. Trace right pleural effusion. 3. Likely chronic nondisplaced fracture of the lateral left sixth rib." CT CHEST showed "1. Right hilar mass extensively involving the right lower and middle lobes, indistinguishable from underlying right hilar and subcarinal mediastinal lymphadenopathy. This should be considered primary bronchogenic neoplasm with lymphangitic metastatic disease until proven otherwise. 2. 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 3. Extensive venolymphatic congestive change asymmetrically in the right lung likely due to stenosis of the right inferior pulmonary vein." Patient admitted with SIRS/sepsis, treated with abx, pulmonology consulted. Bronchoscopy was recommended, but with patient's ID and difficult speech, it was felt that patient did not full comprehend the gravity of the situation and may lack capacity to make decisions. Pulmonology noted that patient is likely at least stage IIIB and prognosis is poor from the start. Patient would need PET scan as outpatient. MRI brain obtained to rule out mets, which has not been completed as of yet. Patient passed bedside swallow eval, is on aspiration precautions. Given patient's ID and question of decision making capacity, case management is heavily involved and have been in contact with [facility] services. Meeting is scheduled for today at 1pm to discuss patient's condition and how to move forward. Palliative care is consulted to provide support given patient's overall poor prognosis and difficult social situation. -Palliative MD saw patient this afternoon. -There was a care meeting held today with attending physician, pulmonary GARO, caseworker protective services, patient's primary caregiver Gabby, and supervisor channel process from [facility] via phone. Per documentation, Gabby was updated on patient's condition. She will attempt to discuss goals of care with patient. Gabby is also understanding of the fact that patient will not be able to return to his home alone. Looking into SNF options. -Per patient's aviation support equipment repairer through [facility] services, patient has no living relatives, no living will or POA. Per [place] law, if there is absolutely no family or legal POA available, anyone who knows patient well and has their best interest in mind can assist with decision making. If patient is truly incapable of making decisions for himself, Gabby could assist with this, hopefully with the support of [facility] coordinators. If she declines wanting to make decisions, would need to involve office on aging. [facility]OA will be involved regardless since patient will be going to SNF ([facility]). Update: Palliative MD met with patient and caregiver, Gabby. Gabby was able to speak with patient. He states he does not want invasive workup done. Gabby is supportive of patient's decision. Patient wants to try and get some rehab. Gabby aware that chance of improving to the point of patient returning home is unlikely. We will continue to follow as needed. (2) Abnormal CT scan, chest: (3) Severe protein-calorie malnutrition: (4) Postobstructive pneumonia: Supervising Physician Co-Signing Physician Notes Chart reviewed, patient seen and examined, collaborated with RAMONA White Patient's caregiver, Gabby - [phone] -present at bedside. Patient's caregiver had just completed conference with case management and pulmonology. Caregiver reports she has been involved with the patient since February-he has been quite spry and active up until approximately 1 month ago when he started losing weight. She reports over the past 2 to 3 weeks he is had difficulty walking. Patient speech is very difficult to understand-caregiver able to understand what he says 95% of the time. Discussed findings on chest CT and implications that it is most likely a malignant neoplasm, explained to patient that they would need to do a bronchoscopy to obtain tissue if he wished to preserve treatment. Caregiver said she would speak with patient-returned later, patient's reported that he did not want any further invasive procedures or treatment. He was able to nod yes to my statements. Patient did understand that without treatment the cancer would likely progress and take his life patient would like to attempt some physical therapy to see if he can get strong enough to return home spoke with caregiver,Gabby, privately-explained that his disease will likely rapidly progress, will speak to case management regarding SNF placement for rehab-if patient would decline rapidly recommended hospice care. PE: Patient awake and alert HEENT: EOMI, hearing within normal limits Respirations: Unlabored, diminished breath sounds on right CV: Regular rate Abdomen: Not distended, nontender Extremities: Patient able to ambulate using walker and assist Neuro: Positive cognitive deficits, is able to voice general understanding of his current condition, treatment options and wishes. Agree with above note, assessment and plan as per RAMONA White. Spoke again with case management regarding plan of care.. History of Present Illness Attending Physician: Bhavani Brown DO History of Present Illness This 79 year old male patient with PMH intellectual disability, COPD, BPH, dyslipidemia, and others, presented to the ED with complaint of fall. It is reported for the past 1 to 2 weeks pt had sore throat, cough, reportedly had a choking episode a week or so prior to arrival. Patient has a caregiver/compensation associate through [facility] services, as well as a caseworker protective services. Caregivers come into his home 8 hours per week. Main caregiver Gabby reports patient has been declining over the last month, doesn't believe he was taking his medications, not eating/drinking well, increased weakness. Patient wouldn't let people into his home for four days, until someone knocked on the door and patient yelled that he was on the floor and couldn't get up. Patient was brought to hospital. In ED, patient afebrile, slightly tachycardic, WBC 20k, Ca 11.5, glucose 156 otherwise no other significant electrolyte abnormality, lactic acid 3.2, UA abnormal, negative influenza PCR. CPK 1296-->341 after IVF, Cr 1.25 on admission, now 0.54. CXR "1. 4.7 cm masslike opacity of the right hilum is suspicious for a bronchogenic neoplasm. Right perihilar, right midlung and right lung base ill- defined opacities may reflect associated postobstructive pneumonitis or asymmetric pulmonary edema. Correlation with contrast-enhanced CT of the chest is needed. 2. Trace right pleural effusion. 3. Likely chronic nondisplaced fracture of the lateral left sixth rib." CT CHEST showed "1. Right hilar mass extensively involving the right lower and middle lobes, indistinguishable from underlying right hilar and subcarinal mediastinal lymphadenopathy. This should be considered primary bronchogenic neoplasm with lymphangitic metastatic disease until proven otherwise. 2. 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 3. Extensive venolymphatic congestive change asymmetrically in the right lung likely due to stenosis of the right inferior pulmonary vein." Patient admitted with SIRS/sepsis, treated with abx, pulmonology consulted. Bronchoscopy was recommended, but with patient's ID and difficult speech, it was felt that patient did not full comprehend the gravity of the situation and may lack capacity to make decisions. Pulmonology noted that patient is likely at least stage IIIB and prognosis is poor from the start. Patient would need PET scan as outpatient. MRI brain obtained to rule out mets, which has not been com pleted as of yet. Patient passed bedside swallow eval, is on aspiration precautions. Given patient's ID and question of decision making capacity, case management is heavily involved and have been in contact with [facility] services. Meeting is scheduled for today at 1pm to discuss patient's condition and how to move forward. Palliative care is consulted to provide support given patient's overall poor prognosis and difficult social situation. Thank you kindly for this consult. Palliative care team will follow as needed. Allergies Allergy/AdvReac Type Severity Reaction Status Date / Time No Known Allergies Unverified 12/02/19 10:57 Home Medications Home Medications Medication Instructions Recorded Confirmed Type atorvastatin 40 mg PO QAM 12/02/19 12/02/19 History cholecalciferol (vitamin D3) 25 mcg PO QAM 12/02/19 12/02/19 History [Vitamin D3] finasteride 5 mg PO QAM 12/02/19 12/02/19 History tamsulosin 0.4 mg PO QAM 12/02/19 12/02/19 History Patient History Medical History Asthma BPH (benign prostatic hyperplasia) COPD (chronic obstructive pulmonary disease) Dyslipidemia Intellectual disability Intellectual disability Surgical History History of colonoscopy 2012 - adenomatous polyps; by Dr Bahena Social History Preferred Language: Khmer Communication Ability: Effective Communication Ability Comment: ID, mony speech, AMS Pastoral Worker Required: No Current Living Situation: Alone Feels Safe at Home: Yes Smoking Status: Former smoker Smoking End Date: Quit 2008, smoked 1ppd x 40 years ; Hx Alcohol Use: No Hx Substance Use: No Results & Data Vital Signs (Past 12 Hours) Vital Signs Temp Pulse Resp BP Pulse Ox 12/09/19 07:43 36.9 C 82 18 104/63 97 Coding Level of Care Code 87508 Inpt Consult Level 3 Diagnoses Goals of care, counseling/discussion Z71.[address] scan, chest R93.89 Severe protein-calorie malnutrition E43 Postobstructive pneumonia J18.9 Time Spent (min) 85 Time Spent Midlevel A total of 50 minutes spent by this TRUCK SALES REPRESENTATIVE in reviewing chart, speaking with palliative MD and IDT regarding patient's plan of care and social issues. Attending Spent 35 minutes at bedside reviewing with patient his current condition, treatment options and goals of care with the assist of his caregiver,Gabby in addition to the 50 minutes spent by RAMONA White for a total of 85 minutes with greater than 50% of the time spent at bedside, collaborating with case management as well as collaborating with attending physician.
--- NOTE | 2019-12-09 16:38 | Hospitalist Progress Note ---
Date of Service December 09, 2019 Assessment & Plan (1) Severe sepsis: 2/2 pneumonia, resuscitated. (2) Postobstructive pneumonia: Suspected underlying lung Ca. As patient is opting out of treatment, will give a slightly longer course of abx for pneumonia (14 days) and then staff at SNF can re-evaluate him and extend the course as needed. Will transition from Zosyn to Augmentin now. (3) Mass of right lung: Likely malignant. No further workup or treatment as above. (4) Hypercalcemia: Corrected with IVF and calcitonin. Suspect underlying malignancy. PTHrp pending. (5) Rhabdomyolysis: nontraumatic rhabdomyolysis after being found down on the floor at home after a fall. Treated with IVF and resolved. Renal function is at baseline. (6) Dysphagia: Difficulty swallowing noted by nursing staff. Seen by GOGGLES ASSEMBLER. Beside swallowing evaluation performed. No apparent aspiration at that time. Ongoing aspiration precautions. Now tolerating PO. (7) Severe protein-calorie malnutrition: Suspected underlying malignancy. (8) BPH (benign prostatic hyperplasia): Continue finasteride and tamsulosin. (9) Intellectual disability: History of cognitive disability. Deemed capable of decision making in the past, but may need reassessment. Patient has difficulty expressing himself verbally, making determination of his orientation, understanding, judgement difficult. Gabby who has been his primary outpatient caregiver was able to see him and spend time with him today. She has helped us with medical decision making based on her long relationship with the patient. (10) COVID-19 virus not detected: (11) DVT prophylaxis: Lovenox Full Dispo-to SNF when available bed ready. Appreciate Case Management assistance with placement. Patient will be a target with his intellectual delay. Bhavani Brown DO [facility] Hospitalist Admission and Anticipated Discharge Date Admission Date: December 02, 2019 Subjective 79 yo M with post obstructive pneumonia 2/2 large lung mass Multi-disciplinary meeting with his personal friend and nurse (same girl) She helped to guide medical staff on his previous wishes and feelings on the situation as well as interpret his current wishes on the matters at hand The patient does not want to proceed with biopsy or treatment of possible malignancy at this time He is willing to go to rehab with a possible transition to Hospice down the road. Dr. Roldan from Palliative also involved. She gathered the same information and was also able to speak with the nurse/friend On my assessment the patient is comfortable and denies pain, shortness of breath, cough or fever He again was concerned that he was incontinent of urine today, but he is not wet. Review of Systems Review of Systems: All systems reviewed & are unremarkable except as noted in Subjective Physical Exam Physical Exam: CONSTITUTIONAL: thin, frail, vitals as above, no acute distress EYES: normal conjunctivae, no scleral icterus ENT: external ear and nose normal, poor dentition RESPIRATORY: coarse rhonchi throughout. clear to auscultation bilaterally, no crackles, rales or wheezes, normal respiratory effort CARDIOVASCULAR: regular rate and rhythm, S1 and 2 heard without murmurs, gallops or rubs, no JVD, no peripheral edema GASTROINTESTINAL: soft, nontender, nondistended, no guarding. MUSCULOSKELETAL: significant physical weakness, contracted lower extremities that are rigid and dont move well. Cannot move around bed independently. SKIN: warm and dry NEUROLOGIC: CN 2-12 grossly intact, normal cognition, difficulty articulating words. PSYCHIATRIC: alert and cooperative. calm Results & Data Results & Data ([facility]) Vital Signs (Past 12 Hours) Vital Signs Temp Pulse Resp BP Pulse Ox 12/09/19 16:28 37.0 C 85 18 109/68 94 12/09/19 07:43 36.9 C 82 18 104/63 97 Laboratory Results Short CBC 12/09/19 Range/Units 07:28 WBC 14.61 H (4.8-10.8) K/uL Hgb 10.8 L (14.0-18.0) g/dL Hct 32.6 L (42-52) % Plt Count 249 (130-400) K/uL BMP 12/09/19 07:28 Sodium 132 L Potassium 3.9 Chloride 101 Carbon Dioxide 24 BUN 9 Creatinine 0.54 L Glucose 110 H Calcium 9.5 Medications Administered Current Inpatient Medications Acetaminophen (Tylenol) 650 mg PO Q4H PRN PRN Reason: Pain or Fever Stop: 01/01/20 20:21 Atorvastatin Calcium (Lipitor) 40 mg PO DAILY@0800 [facility] Stop: 01/02/20 07:59 Last Admin: 12/09/19 07:45 Dose: 40 mg Documented by: Finasteride (Proscar) 5 mg PO DAILY@0800 [facility] Stop: 01/02/20 07:59 Last Admin: 12/09/19 07:45 Dose: 5 mg Documented by: Piperacillin Sod/Tazobactam (Sod 3.375 gm/ Dextrose) 115 mls @ 28.75 mls/hr IV Q8@0400,1200,2000 [facility]; Protocol Stop: 12/09/19 20:44 Last Infusion: 12/09/19 16:03 Dose: Infused Documented by: Miscellaneous Information (Consult) 1 ea N/A UD PRN PRN Reason: Consult Stop: 01/01/20 13:00 Potassium Chloride (Harmony Ciel Elix) 20 meq PO TID [facility] Stop: 01/04/20 08:59 Last Admin: 12/09/19 16:03 Dose: 20 meq Documented by: Tamsulosin HCl (Flomax) 0.4 mg PO DAILY@0800 [facility] Stop: 01/02/20 07:59 Last Admin: 12/09/19 07:45 Dose: 0.4 mg Documented by: (1) Rhabdomyolysis Encounter type: initial encounter Rhabdomyolysis type: traumatic Qualified Code(s): T79.6XXA - Traumatic ischemia of muscle, initial encounter
--- NOTE | 2019-12-10 08:48 | Hospitalist Progress Note ---
Date of Service December 10, 2019 Assessment & Plan (1) Postobstructive pneumonia: Suspected underlying lung Ca. As patient is opting out of treatment, will give a slightly longer course of abx for pneumonia (14 days) and then staff at SNF can re-evaluate him and extend the course as needed. Cont Augmentin for another 7 days at this time. (2) Severe sepsis: 2/2 pneumonia, resuscitated. (3) Mass of right lung: Likely malignant. No further workup or treatment as above. (4) Dysphagia: Difficulty swallowing noted by nursing staff. Seen by BUSINESS LAW INSTRUCTOR. Beside swallowing evaluation performed. No apparent aspiration at that time. Ongoing aspiration precautions. Now tolerating PO. (5) Severe protein-calorie malnutrition: Suspected underlying malignancy. (6) BPH (benign prostatic hyperplasia): Continue finasteride and tamsulosin. (7) Intellectual disability: History of cognitive disability. Deemed capable of decision making in the past, but may need reassessment. Patient has difficulty expressing himself verbally, making determination of his orientation, understanding, judgement difficult. Gabby who has been his primary outpatient caregiver was able to see him and spend time with him today. She has helped us with medical decision making based on her long relationship with the patient. (8) COVID-19 virus not detected: No apparent risk factors for COVID-19. Testing recommended in light of anticipated bronchoscopy. SARS-CoV-2 nasopharyngeal PCR negative on 12/02/19. (9) DVT prophylaxis: Lovenox Full Dispo-to SNF when available bed ready. Appreciate Case Management assistance with placement. Patient will be a target with his intellectual delay. This may take a few days. [facility]havani [facility] DO [facility] and Anticipated Discharge Date Admission Date: December 02, 2019 Subjective Pt doing well Denies any pain Tolerating PO Afebrile +junky cough present very weak and difficulty moving around in bed independently denies leg pain Review of Systems Review of Systems: All systems reviewed & are unremarkable except as noted in Subjective Physical Exam Physical Exam: CONSTITUTIONAL: thin, frail, vitals as above, no acute distress EYES: normal conjunctivae, no scleral icterus ENT: external ear and nose normal, poor dentition RESPIRATORY: coarse rhonchi throughout. clear to auscultation bilaterally, no crackles, rales or wheezes, normal respiratory effort CARDIOVASCULAR: regular rate and rhythm, S1 and 2 heard without murmurs, gallops or rubs, no JVD, no peripheral edema GASTROINTESTINAL: soft, nontender, nondistended, no guarding. MUSCULOSKELETAL: significant physical weakness, contracted lower extremities that are rigid and dont move well. Cannot move around bed independently. SKIN: warm and dry NEUROLOGIC: CN 2-12 grossly intact, normal cognition, difficulty articulating words. PSYCHIATRIC: alert and cooperative. calm Results & Data Results & Data ([facility]) Vital Signs (Past 12 Hours) Vital Signs Temp Pulse Resp BP Pulse Ox 12/10/19 07:56 36.5 C 86 18 120/72 97 12/09/19 23:36 36.7 C 85 18 103/62 94 Medications Administered Current Inpatient Medications Acetaminophen (Tylenol) 650 mg PO Q4H PRN PRN Reason: Pain or Fever Stop: 01/01/20 20:21 Amoxicillin/Clavulanate Potassium (Augmentin 875mg) 1 tab PO BIDM [facility]; Protocol Stop: 12/17/19 07:59 Atorvastatin Calcium (Lipitor) 40 mg PO DAILY@0800 [facility] Stop: 01/02/20 07:59 Last Admin: 12/09/19 07:45 Dose: 40 mg Documented by: Enoxaparin Sodium (Lovenox) 40 mg SQ QAM [facility] Stop: 01/09/20 08:59 Finasteride (Proscar) 5 mg PO DAILY@0800 [facility] Stop: 01/02/20 07:59 Last Admin: 12/09/19 07:45 Dose: 5 mg Documented by: Tamsulosin HCl (Flomax) 0.4 mg PO DAILY@0800 [facility] Stop: 01/02/20 07:59 Last Admin: 12/09/19 07:45 Dose: 0.4 mg Documented by:
[2019-12-10] MEDS: FINASTERIDE 5 MG TAB PO SCH (08:58)
[2019-12-10] MEDS: AMOXICILLIN/CLAVULANATE 875 MG TAB PO SCH ×2 (08:58→17:33)
[2019-12-10] MEDS: TAMSULOSIN HCL 0.4 MG CAP PO SCH (08:58)
[2019-12-10] MEDS: ATORVASTATIN 40 MG TAB PO SCH (08:58)
[2019-12-10] MEDS: ENOXAPARIN INJ 40 MG/0.4 ML SYR SQ SCH (09:15)
[2019-12-10] MEDS ORDERED: POLYETHYLENE (MIRALAX) 17 GM PACK PO PRN (12:28)
[2019-12-10] MEDS ORDERED: SENNA 17.6 MG/10 ML UDP PO PRN (12:28)
[2019-12-10] MEDS ORDERED: POLYETHYLENE (MIRALAX) 17 GM PACK PO ONE (12:30)
[2019-12-10] MEDS: DOCUSATE SODIUM 100 MG CAP PO SCH (20:34)
[2019-12-11] MEDS: ATORVASTATIN 40 MG TAB PO SCH (08:36)
[2019-12-11] MEDS: DOCUSATE SODIUM 100 MG CAP PO SCH ×2 (08:36→22:46)
[2019-12-11] MEDS: AMOXICILLIN/CLAVULANATE 875 MG TAB PO SCH ×2 (08:36→17:33)
[2019-12-11] MEDS: TAMSULOSIN HCL 0.4 MG CAP PO SCH (08:36)
[2019-12-11] MEDS: FINASTERIDE 5 MG TAB PO SCH (08:36)
[2019-12-11] MEDS: ENOXAPARIN INJ 40 MG/0.4 ML SYR SQ SCH (08:37)
--- NOTE | 2019-12-11 09:05 | Hospitalist Progress Note ---
Date of Service December 11, 2019 Assessment & Plan (1) Postobstructive pneumonia: Suspected underlying lung Ca. As patient is opting out of treatment, will give a slightly longer course of abx for pneumonia (14 days) and then staff at SNF can re-evaluate him and extend the course as needed. Cont Augmentin for another 7 day course (2) Constipation: Scheduled Miralax and suppository given today. No documented BM since 12/01. (3) Severe sepsis: 2/2 pneumonia, resuscitated. (4) Mass of right lung: Likely malignant. No further workup or treatment as above. (5) Dysphagia: Difficulty swallowing noted by nursing staff. Seen by TELLER HEAD. Beside swallowing evaluation performed. No apparent aspiration at that time. Ongoing aspiration precautions. Now tolerating PO. (6) Severe protein-calorie malnutrition: Suspected underlying malignancy. (7) BPH (benign prostatic hyperplasia): Continue finasteride and tamsulosin. (8) Intellectual disability: History of cognitive disability. Deemed capable of decision making in the past, but may need reassessment. Patient has difficulty expressing himself verbally, making determination of his orientation, understanding, judgement difficult. Gabby who has been his primary outpatient caregiver was able to see him and spend time with him today. She has helped us with medical decision making based on her long relationship with the patient. (9) COVID-19 virus not detected: No apparent risk factors for COVID-19. Testing recommended in light of anticipated bronchoscopy. SARS-CoV-2 nasopharyngeal PCR negative on 12/02/19. (10) DVT prophylaxis: Lovenox Full Dispo-to SNF when available bed ready. Appreciate Case Management assistance with placement. Patient will be a target with his intellectual delay. This may take a few days. [facility] and [facility]tic[facility]ated Discharge Date Admission Date: December 02, 2019 Subjective Pt doing well Denies any pain Tolerating PO Afebrile Review of Systems Review of Systems: Unobtainable due to mental health condition (some questions answered, but difficulty articulating at times 2/2 intellectual delay) Physical Exam Physical Exam: CONSTITUTIONAL: thin, frail, vitals as above, no acute distress EYES: normal conjunctivae, no scleral icterus ENT: external ear and nose normal, poor dentition RESPIRATORY: coarse rhonchi throughout. clear to auscultation bilaterally, no crackles, rales or wheezes, normal respiratory effort CARDIOVASCULAR: regular rate and rhythm, S1 and 2 heard without murmurs, gallops or rubs, no JVD, no peripheral edema GASTROINTESTINAL: soft, nontender, nondistended, no guarding. MUSCULOSKELETAL: significant physical weakness, contracted lower extremities that are rigid and dont move well. Cannot move around bed independently. SKIN: warm and dry NEUROLOGIC: CN 2-12 grossly intact, normal cognition, difficulty articulating words. PSYCHIATRIC: alert and cooperative. calm Results & Data Results & Data ([facility]) Vital Signs (Past 12 Hours) Vital Signs Temp Pulse Resp BP Pulse Ox 12/11/19 07:53 36.7 C 72 18 108/61 95 12/10/19 23:00 35.9 C L 76 19 108/71 98 Medications Administered Current Inpatient Medications Acetaminophen (Tylenol) 650 mg PO Q4H PRN PRN Reason: Pain or Fever Stop: 01/01/20 20:21 Amoxicillin/Clavulanate Potassium (Augmentin 875mg) 1 tab PO BIDM [facility]; Protocol Stop: 12/17/19 07:59 Last Admin: 12/11/19 08:36 Dose: 1 tab Documented by: Atorvastatin Calcium (Lipitor) 40 mg PO DAILY@0800 [facility] Stop: 01/02/20 07:59 Last Admin: 12/11/19 08:36 Dose: 40 mg Documented by: Docusate Sodium (Colace) 100 mg PO BID [facility] Stop: 01/09/20 20:59 Last Admin: 12/11/19 08:36 Dose: 100 mg Documented by: Enoxaparin Sodium (Lovenox) 40 mg SQ QAM [facility] Stop: 01/09/20 08:59 Last Admin: 12/11/19 08:37 Dose: 40 mg Documented by: Finasteride (Proscar) 5 mg PO DAILY@0800 [facility] Stop: 01/02/20 07:59 Last Admin: 12/11/19 08:36 Dose: 5 mg Documented by: Polyethylene Glycol (Miralax Powder Packet) 17 gm PO DAILY PRN PRN Reason: Constipation Stop: 01/09/20 12:27 Sennosides (Senokot) 17.6 mg PO DAILY PRN PRN Reason: Constipation Stop: 01/09/20 12:27 Tamsulosin HCl (Flomax) 0.4 mg PO DAILY@0800 [facility] Stop: 01/02/20 07:59 Last Admin: 12/11/19 08:36 Dose: 0.4 mg Documented by:
[2019-12-11] MEDS ORDERED: GLYCERIN ADULT 12 SUPP/BOX SUPP PR ONE (15:00)
[2019-12-11] MEDS: POLYETHYLENE (MIRALAX) 17 GM PACK PO SCH (17:32)
[2019-12-12 06:14] LABS: Basophils # (auto) 0.02 K/uL (0-0.2); Basophils % (auto) 0.2 %; Eosinophils # (auto) 0.13 K/uL (0-0.5); Hematocrit (blood only) 32.5 % (42-52); Hemoglobin 10.6 g/dL (14.0-18.0); Immature Granulocytes # (auto) 0.17 K/uL (0.00-0.02); Immature Granulocytes % (auto) 1.3 %; Lymphocytes # (auto) 1.19 K/uL (1.2-3.4); Lymphocytes % (auto) 9.3 %; Mean Corpuscular Hemoglobin 29.6 pg (25-34); Mean Corpuscular Hgb Conc 32.6 g/dL (32-36); Mean Corpuscular Volume 90.8 fL (80-100); Mean Platelet Volume 9.8 fL (7.4-10.4); Monocytes # (auto) 1.34 K/uL (0.11-0.59); Monocytes % (auto) 10.4 %; Neutrophils # (auto) 10.01 K/uL (1.4-6.5); Neutrophils % (auto) 77.8 %; Platelet Count 292 K/uL (130-400); RDW Coefficient of Variation 15.3 % (11.5-14.5); Red Blood Count 3.58 M/uL (4.7-6.1); White Blood Count 12.86 K/uL (4.8-10.8)
[2019-12-12 06:37] LABS: BUN Creatinine Ratio 22.1 (10-20); Calcium 9.5 mg/dl (8.5-10.1); Creatinine Clr Calc Pharmacy 96.6 ml/min; Est GFR (African American) 113.2; Est GFR (Non-African American) 97.7
[2019-12-12] MEDS: TAMSULOSIN HCL 0.4 MG CAP PO SCH (08:12)
[2019-12-12] MEDS: ATORVASTATIN 40 MG TAB PO SCH (08:12)
[2019-12-12] MEDS: DOCUSATE SODIUM 100 MG CAP PO SCH ×2 (08:12→21:01)
[2019-12-12] MEDS: POLYETHYLENE (MIRALAX) 17 GM PACK PO SCH ×2 (08:13→17:00)
[2019-12-12] MEDS: ENOXAPARIN INJ 40 MG/0.4 ML SYR SQ SCH (08:13)
[2019-12-12] MEDS: AMOXICILLIN/CLAVULANATE 875 MG TAB PO SCH ×2 (08:13→16:58)
[2019-12-12] MEDS: FINASTERIDE 5 MG TAB PO SCH (08:14)
--- NOTE | 2019-12-12 11:46 | Hospitalist Progress Note ---
Date of Service December 12, 2019 Assessment & Plan (1) Postobstructive pneumonia: Suspected underlying lung Ca. As patient is opting out of treatment, will give a slightly longer course of abx for pneumonia (14 days) and then staff at SNF can re-evaluate him and extend the course as needed. Cont Augmentin. (2) Constipation: Cont scheduled Miralax until BM. (3) Severe sepsis: 2/2 pneumonia, resuscitated. (4) Mass of right lung: Likely malignant. No further workup or treatment as above. (5) Dysphagia: Difficulty swallowing noted by nursing staff. Seen by SNOW REMOVAL/PLOWING. Beside swallowing evaluation performed. No apparent aspiration at that time. Ongoing aspiration precautions. Now tolerating PO. (6) Severe protein-calorie malnutrition: Suspected underlying malignancy. (7) BPH (benign prostatic hyperplasia): Continue finasteride and tamsulosin. (8) Intellectual disability: History of cognitive disability. Deemed capable of decision making in the past, but may need reassessment. Patient has difficulty expressing himself verbally, making determination of his orientation, understanding, judgement difficult. Gabby who has been his primary outpatient caregiver was able to see him and s pend time with him today. She has helped us with medical decision making based on her long relationship with the patient. (9) COVID-19 virus not detected: No apparent risk factors for COVID-19. Testing recommended in light of anticipated bronchoscopy. SARS-CoV-2 nasopharyngeal PCR negative on 12/02/19. (10) DVT prophylaxis: Lovenox Full Dispo-to SNF when available bed ready. Appreciate Case Management assistance with placement. Patient will be a target with his intellectual delay. Target evaluation to take place middle of next week. Bhavani Brown DO [facility] Hospitalist Admission and Anticipated Discharge Date Admission Date: December 02, 2019 Anticipated date of discharge: 12/17/19 Subjective doing well no events overnight denies pain breathing on room air and remains afebrile tolerating PO intellectual delay prohibits extensive ROS Review of Systems Review of Systems: Other (limited 2/2 intelectual delay) Physical Exam Physical Exam: CONSTITUTIONAL: thin, frail, vitals as above, no acute distress EYES: normal conjunctivae, no scleral icterus ENT: external ear and nose normal, poor dentition RESPIRATORY: coarse rhonchi throughout. clear to auscultation bilaterally, no crackles, rales or wheezes, normal respiratory effort CARDIOVASCULAR: regular rate and rhythm, S1 and 2 heard without murmurs, gallops or rubs, no JVD, no peripheral edema GASTROINTESTINAL: soft, nontender, nondistended, no guarding. MUSCULOSKELETAL: significant physical weakness, contracted lower extremities that are rigid and dont move well. Cannot move around bed independently. SKIN: warm and dry NEUROLOGIC: CN 2-12 grossly intact, normal cognition, difficulty articulating words. PSYCHIATRIC: alert and cooperative. calm Results & Data Results & Data ([facility]) Vital Signs (Past 12 Hours) Vital Signs Temp Pulse Resp BP Pulse Ox 12/12/19 08:00 37.0 C 84 18 122/78 96 12/11/19 23:45 36.8 C 85 20 101/63 94 Laboratory Results Short CBC 12/12/19 Range/Units 05:38 WBC 12.86 H (4.8-10.8) K/uL Hgb 10.6 L (14.0-18.0) g/dL Hct 32.5 L (42-52) % Plt Count 292 (130-400) K/uL BMP 12/12/19 05:38 Sodium 135 L Potassium 4.0 Chloride 101 Carbon Dioxide 26 BUN 12 Creatinine 0.56 L Glucose 104 H Calcium 9.5 Medications Administered Current Inpatient Medications Acetaminophen (Tylenol) 650 mg PO Q4H PRN PRN Reason: Pain or Fever Stop: 01/01/20 20:21 Amoxicillin/Clavulanate Potassium (Augmentin 875mg) 1 tab PO BIDM [facility]; Protocol Stop: 12/17/19 07:59 Last Admin: 12/12/19 08:13 Dose: 1 tab Documented by: Atorvastatin Calcium (Lipitor) 40 mg PO DAILY@0800 [facility] Stop: 01/02/20 07:59 Last Admin: 12/12/19 08:12 Dose: 40 mg Documented by: Docusate Sodium (Colace) 100 mg PO BID [facility] Stop: 01/09/20 20:59 Last Admin: 12/12/19 08:12 Dose: 100 mg Documented by: Enoxaparin Sodium (Lovenox) 40 mg SQ QAM [facility] Stop: 01/09/20 08:59 Last Admin: 12/12/19 08:13 Dose: 40 mg Documented by: Finasteride (Proscar) 5 mg PO DAILY@0800 [facility] Stop: 01/02/20 07:59 Last Admin: 12/12/19 08:14 Dose: 5 mg Documented by: Polyethylene Glycol (Miralax Powder Packet) 17 gm PO DAILY PRN PRN Reason: Constipation Stop: 01/09/20 12:27 Polyethylene Glycol (Miralax Powder Packet) 17 gm PO BIDM [facility] Stop: 01/10/20 16:59 Last Admin: 12/12/19 08:13 Dose: 17 gm Documented by: Sennosides (Senokot) 17.6 mg PO DAILY PRN PRN Reason: Constipation Stop: 01/09/20 12:27 Tamsulosin HCl (Flomax) 0.4 mg PO DAILY@0800 [facility] Stop: 01/02/20 07:59 Last Admin: 12/12/19 08:12 Dose: 0.4 mg Documented by:
[2019-12-13] MEDS ORDERED: GLYCERIN ADULT 12 SUPP/BOX SUPP PR ONE (07:24)
[2019-12-13] MEDS: FINASTERIDE 5 MG TAB PO SCH (08:37)
[2019-12-13] MEDS: TAMSULOSIN HCL 0.4 MG CAP PO SCH (08:37)
[2019-12-13] MEDS: AMOXICILLIN/CLAVULANATE 875 MG TAB PO SCH ×3 (08:37→16:49)
[2019-12-13] MEDS: ATORVASTATIN 40 MG TAB PO SCH (08:37)
[2019-12-13] MEDS: POLYETHYLENE (MIRALAX) 17 GM PACK PO SCH ×2 (08:40→16:44)
[2019-12-13] MEDS: DOCUSATE SODIUM 100 MG CAP PO SCH ×2 (08:40→20:43)
--- NOTE | 2019-12-13 09:29 | Hospitalist Progress Note ---
Date of Service December 13, 2019 Assessment & Plan (1) Postobstructive pneumonia: Suspected underlying lung Ca. As patient is opting out of treatment, will give a slightly longer course of abx for pneumonia (14 days) and then staff at SNF can re-evaluate him and extend the course as needed. No planned biopsy or treatment. Cont Augmentin. (2) Constipation: Cont scheduled Miralax until BM. Suppositories PRN (3) Severe sepsis: 2/2 pneumonia, resuscitated. (4) Mass of right lung: Likely malignant. No further workup or treatment as above. (5) Dysphagia: Difficulty swallowing noted by nursing staff. Seen by SCHOOL CROSSING GUARD. Beside swallowing evaluation performed. No apparent aspiration at that time. Ongoing aspiration precautions. Now tolerating PO. (6) Severe protein-calorie malnutrition: Suspected underlying malignancy. (7) BPH (benign prostatic hyperplasia): Continue finasteride and tamsulosin. (8) Intellectual disability: History of cognitive disability. Deemed capable of decision making in the past, but may need reassessment. Patient has difficulty expressing himself verbally, making determination of his orientation, understanding, judgement difficult. Gabby who has been his primary outpatient caregiver was able to see him and spend time with him today. She has helped us with medical decision making based on her long relationship with the patient. (9) COVID-19 virus not detected: No apparent risk factors for COVID-19. Testing recommended in light of anticipated bronchoscopy. SARS-CoV-2 nasopharyngeal PCR negative on 12/02/19. (10) DVT prophylaxis: Lovenox Full Dispo-to SNF when available bed ready. Appreciate Case Management assistance with placement. Patient will be a target with his intellectual delay. Target evaluation to take place middle of next week. Bhavani Brown DO [facility] Hospitalist Admission and Anticipated Discharge Date Admission Date: December 02, 2019 Anticipated date of discharge: 12/17/19 Subjective Denies pain, nausea, cough or other symptoms Reports able to sleep overnight Appears calm and cooperative. Review of Systems Review of Systems: All systems reviewed & are unremarkable except as noted in Subjective Physical Exam Physical Exam: CONSTITUTIONAL: thin, frail, vitals as above, no acute distress EYES: normal conjunctivae, no scleral icterus ENT: external ear and nose normal, poor dentition RESPIRATORY: coarse rhonchi throughout but these are improved today. clear to auscultation bilaterally, no crackles, rales or wheezes, normal respiratory effort CARDIOVASCULAR: regular rate and rhythm, S1 and 2 heard without murmurs, gallops or rubs, no JVD, no peripheral edema GASTROINTESTINAL: soft, nontender, nondistended, no guarding. MUSCULOSKELETAL: significant physical weakness. Cannot move around bed independently. SKIN: warm and dry NEUROLOGIC: CN 2-12 grossly intact, normal cognition, no gross focal deficits. PSYCHIATRIC: alert and cooperative. Results & Data Results & Data ([facility]) Vital Signs (Past 12 Hours) Vital Signs Temp Pulse Resp BP BP Pulse Ox 12/13/19 07:33 36.7 C 84 16 104/64 93 12/12/19 23:48 37.0 C 81 18 100/65 93 12/12/19 23:44 37.0 C 82 16 120/72 92 Medications Administered Current Inpatient Medications Acetaminophen (Tylenol) 650 mg PO Q4H PRN PRN Reason: Pain or Fever Stop: 01/01/20 20:21 Amoxicillin/Clavulanate Potassium (Augmentin 875mg) 1 tab PO BIDM [facility]; Protocol Stop: 12/17/19 07:59 Last Admin: 12/13/19 08:37 Dose: 1 tab Documented by: Atorvastatin Calcium (Lipitor) 40 mg PO DAILY@0800 [facility] Stop: 01/02/20 07:59 Last Admin: 12/13/19 08:37 Dose: 40 mg Documented by: Docusate Sodium (Colace) 100 mg PO BID [facility] Stop: 01/09/20 20:59 Last Admin: 12/13/19 08:40 Dose: 100 mg Documented by: Enoxaparin Sodium (Lovenox) 40 mg SQ QAM [facility] Stop: 01/09/20 08:59 Last Admin: 12/12/19 08:13 Dose: 40 mg Documented by: Finasteride (Proscar) 5 mg PO DAILY@0800 [facility] Stop: 01/02/20 07:59 Last Admin: 12/13/19 08:37 Dose: 5 mg Documented by: Polyethylene Glycol (Miralax Powder Packet) 17 gm PO DAILY PRN PRN Reason: Constipation Stop: 01/09/20 12:27 Polyethylene Glycol (Miralax Powder Packet) 17 gm PO BIDM [facility] Stop: 01/10/20 16:59 Last Admin: 12/13/19 08:40 Dose: 17 gm Documented by: Sennosides (Senokot) 17.6 mg PO DAILY PRN PRN Reason: Constipation Stop: 01/09/20 12:27 Tamsulosin HCl (Flomax) 0.4 mg PO DAILY@0800 [facility] Stop: 01/02/20 07:59 Last Admin: 12/13/19 08:37 Dose: 0.4 mg Documented by:
[2019-12-13] MEDS: ENOXAPARIN INJ 40 MG/0.4 ML SYR SQ SCH (09:37)
[2019-12-14] MEDS: AMOXICILLIN/CLAVULANATE 875 MG TAB PO SCH ×2 (07:50→17:54)
[2019-12-14] MEDS: TAMSULOSIN HCL 0.4 MG CAP PO SCH (07:50)
[2019-12-14] MEDS: ATORVASTATIN 40 MG TAB PO SCH (07:51)
[2019-12-14] MEDS: ENOXAPARIN INJ 40 MG/0.4 ML SYR SQ SCH (07:51)
[2019-12-14] MEDS: FINASTERIDE 5 MG TAB PO SCH (07:51)
[2019-12-14] MEDS: DOCUSATE SODIUM 100 MG CAP PO SCH ×2 (07:52→20:45)
[2019-12-14] MEDS: POLYETHYLENE (MIRALAX) 17 GM PACK PO SCH ×4 (08:00→18:31)
--- NOTE | 2019-12-14 10:48 | Hospitalist Progress Note ---
Date of Service December 14, 2019 Assessment & Plan (1) Postobstructive pneumonia: Suspected underlying lung Ca. No planned biopsy or treatment. Cont Augmentin. (2) Constipation: Cont scheduled Miralax until BM. Persists without a BM. Now with slight tenderness in RLQ. Suppositories PRN. Will schedule M&M enema and will increase the scheduled Miralax until he has a BM. (3) Severe sepsis: 2/2 pneumonia, resuscitated. (4) Mass of right lung: Likely malignant. No further workup or treatment as above. (5) Dysphagia: Difficulty swallowing noted by nursing staff. Seen by TIP BANDING MACHINE OPERATOR. Beside swallowing evaluation performed. No apparent aspiration at that time. Ongoing aspiration precautions. Now tolerating PO. (6) Severe protein-calorie malnutrition: Suspected underlying malignancy. (7) BPH (benign prostatic hyperplasia): Continue finasteride and tamsulosin. (8) Intellectual disability: History of cognitive disability. Deemed capable of decision making in the past, but may need reassessment. Patient has difficulty expressing himself verbally, making determination of his orientation, understanding, judgement difficult. Gabby assisted the patient's communication of not wanting a lung biopsy or treatment for lung cancer based on her long relationship with the patient. (9) COVID-19 virus not detected: No apparent risk factors for COVID-19. Testing recommended in light of anticipated bronchoscopy. SARS-CoV-2 nasopharyngeal PCR negative on 12/02/19. (10) DVT prophylaxis: Lovenox Full Dispo-to SNF when available bed ready. Appreciate Case Management assistance with placement. Patient will be a target with his intellectual delay. Bhavani Brown DO [facility] Admission and Anticipated Discharge Date Admission Date: December 02, 2019 Anticipated date of discharge: 12/17/19 Subjective doing well today denies pain tolerating PO reports that he is sleeping seems somewhat reluctant when I encourage him to get out of bed and move around. Review of Systems Review of Systems: All systems reviewed & are unremarkable except as noted in Subjective Physical Exam Physical Exam: CONSTITUTIONAL: thin, frail, vitals as above, no acute distress EYES: normal conjunctivae, no scleral icterus ENT: external ear and nose normal, poor dentition RESPIRATORY: Diminished breath sounds on the right base. Clear lungs to auscultation on the left. No crackles, rales or wheezes. Normal respiratory effort CARDIOVASCULAR: regular rate and rhythm, S1 and 2 heard without murmurs, gallops or rubs, no JVD, no peripheral edema GASTROINTESTINAL: soft, slight TTP in RLQ, nondistended, no guarding. MUSCULOSKELETAL: significant physical weakness. Cannot move around bed independently. SKIN: warm and dry NEUROLOGIC: CN 2-12 grossly intact, normal cognition, no gross focal deficits. PSYCHIATRIC: alert and cooperative. Results & Data Results & Data ([facility]) Vital Signs (Past 12 Hours) Vital Signs Temp Pulse Resp BP BP Pulse Ox 12/14/19 07:29 36.9 C 86 18 107/66 94 12/13/19 23:10 36.8 C 82 18 102/64 93 Medications Administered Current Inpatient Medications Acetaminophen (Tylenol) 650 mg PO Q4H PRN PRN Reason: Pain or Fever Stop: 01/01/20 20:21 Amoxicillin/Clavulanate Potassium (Augmentin 875mg) 1 tab PO BIDM [facility]; Protocol Stop: 12/17/19 07:59 Last Admin: 12/14/19 07:50 Dose: 1 tab Documented by: Atorvastatin Calcium (Lipitor) 40 mg PO DAILY@0800 [facility] Stop: 01/02/20 07:59 Last Admin: 12/14/19 07:51 Dose: 40 mg Documented by: Docusate Sodium (Colace) 100 mg PO BID [facility] Stop: 01/09/20 20:59 Last Admin: 12/14/19 07:52 Dose: 100 mg Documented by: Enoxaparin Sodium (Lovenox) 40 mg SQ QAM [facility] Stop: 01/09/20 08:59 Last Admin: 12/14/19 07:51 Dose: 40 mg Documented by: Finasteride (Proscar) 5 mg PO DAILY@0800 [facility] Stop: 01/02/20 07:59 Last Admin: 12/14/19 07:51 Dose: 5 mg Documented by: Polyethylene Glycol (Miralax Powder Packet) 17 gm PO DAILY PRN PRN Reason: Constipation Stop: 01/09/20 12:27 Polyethylene Glycol (Miralax Powder Packet) 17 gm PO BIDM [facility] Stop: 01/10/20 16:59 Last Admin: 12/14/19 08:00 Dose: 17 gm Documented by: Sennosides (Senokot) 17.6 mg PO DAILY PRN PRN Reason: Constipation Stop: 01/09/20 12:27 Tamsulosin HCl (Flomax) 0.4 mg PO DAILY@0800 [facility] Stop: 01/02/20 07:59 Last Admin: 12/14/19 07:50 Dose: 0.4 mg Documented by:
[2019-12-15] MEDS: POLYETHYLENE (MIRALAX) 17 GM PACK PO SCH ×2 (00:53→06:28)
[2019-12-15] MEDS ORDERED: SODIUM CHLORIDE 0.9% 500 ML IV ONE (07:02)
[2019-12-15] MEDS ORDERED: POLYETHYLENE (MIRALAX) 17 GM PACK PO SCH (09:00)
[2019-12-15] MEDS: AMOXICILLIN/CLAVULANATE 875 MG TAB PO SCH (09:13)
[2019-12-15] MEDS: FINASTERIDE 5 MG TAB PO SCH (09:14)
[2019-12-15] MEDS: ATORVASTATIN 40 MG TAB PO SCH (09:14)
[2019-12-15] MEDS: TAMSULOSIN HCL 0.4 MG CAP PO SCH (09:14)
[2019-12-15] MEDS: ENOXAPARIN INJ 40 MG/0.4 ML SYR SQ SCH (09:15)
[2019-12-15] MEDS: DOCUSATE SODIUM 100 MG CAP PO SCH (09:31)
--- NOTE | 2019-12-15 12:57 | Discharge Summary ---
Date of Service December 15, 2019 Admission HPI Per Admitting Provider Pt is 79 y/o M with PMH of actual disability, COPD, BPH, dyslipidemia presented to ER with complaint of fall. History obtained from patient's caregiver scientific diver. Gabby, is pt's scientific diver who works for [employer] in [place]. It is reported for the past 1 to 2 weeks patient has been complaining of sore throat, cough. This week patient has been refusing to allow caregivers to enter his home. It is reported patient lives by himself. He has caregivers coming 8 hours a week. It is reported that they help prompt him to fill his med reminder containers and can prompt him to take medications however cannot physically hand him medications to take. His medicare coordinator reports that she does not believe he has been taking his medications for the last several days. She reports that he would not allow anyone in his house for the past 4 days. She knocked on door today and heard patient yelling that he was on floor and could not get up. Patient was found lying on floor in the bathroom. Unsure how long patient was lying on floor. She also reports that patient had been visible weight loss the past several months and has not been eating or drinking well. There is report pt had choked last week In ER patient's caregiver scientific diver helps interpret some of what he is saying. Pt c/o feet being cold. It is unknown if pt with any fevers, N/V/D/C, abdominal pain, SOB, CP. Gabby, is pt's scientific diver who works for [employer] in [place]. Her chest painting and sealing supervisor is Noam at [phone]. Contacted Noam who said [facility] has patient's case. Spoke with patient's disability case manager Trini Sheehan at [phone] with [facility]. She reports patient does not have any living relatives. States patient does not have living well. He does not have a medical decision maker. She reports past several months pt has had decline, prior he was fairly high functioning and she reports that there is question on how much pt understands vs a communication issue. Trini's chest painting and sealing supervisor is Renetta Cortes at [phone], attempted to contact however no answer and her voicemail was not set up to leave message. Unable to obtain FH Admission Exam Per Admitting Provider General: no acute distress, thin elderly male, disheveled Head: normocephalic, atraumatic Eyes: PERRL, EOM's intact, conjunctiva non-injected, anicteric ENT: normal inspection external ears, nose, mucous membranes dry Neck: supple, trachea midline Lungs: no respiratory distress, R: 20, 97% on RA, diminished breath sounds CV: RRR, trace pretibial edema Abd: normal BS, soft, no apparent tenderness to palpation Ext: no cyanosis, no apparent calf tenderness, able to move arms and legs Neuro: Awake and alert. 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 Clear lungs to a uscultation on the left. No crackles, rales or wheezes. Normal respiratory effort CARDIOVASCULAR: regular rate and rhythm, S1 and 2 heard without murmurs, gallops or rubs, no JVD, no peripheral edema GASTROINTESTINAL: soft, slight TTP in RLQ, nondistended, no guarding. MUSCULOSKELETAL: significant physical weakness. Cannot move around bed independently. SKIN: warm and dry NEUROLOGIC: CN 2-12 grossly intact, normal cognition, no gross focal deficits. PSYCHIATRIC: alert and cooperative. Discharge Data Allergies Allergy/AdvReac Type Severity Reaction Status Date / Time No Known Allergies Unverified 12/02/19 10:57 Consultations 12/02/19 13:42 ED Decision to Admit Stat 12/02/19 20:22 Consult Case Management - Discharge Planning Routine Consult Pulmonology Routine 12/08/19 20:26 Consult Palliative Care Routine Procedures Performed Operation Date: 12/03/19 07:00 <No data on this case meets the specified criteria> Ordered Studies 12/02/19 10:31 CT cervical spine wo con Stat CT head/brain wo con Stat 12/02/19 10:42 CT angio head w con Stat CT angio neck with con Stat 12/02/19 11:07 CT chest w con Stat Hospital Course (1) Sepsis: (2) Postobstructive pneumonia: (3) Mass of right lung: (4) Dysphagia: (5) Severe protein-calorie malnutrition: (6) Intellectual disability: (7) Hypercalcemia: (8) Rhabdomyolysis: (9) Constipation: (10) COVID-19 virus not detected: 79-year-old man admitted with sepsis secondary to pneumonia. Work-up revealed a 4.7 cm masslike opacity in the right hilum suspicious for bronchogenic neoplasm in addition to a postobstructive pneumonia. He CT chest was performed further elucidating the right hilar mass which extensively involve the right lower and middle lobes. The patient was admitted to the hospitalist service and placed on Zosyn and given IV fluids with a trend and lactic acid from 3.6 to 1.4. Pulmonary was consulted and recommended a bronchoscopy once he was more stable from his sepsis. Hypercalcemia was noted with a serum calcium of 11.5 at admission, corrected to 12.5. He received IV fluids and calcitonin with an improvement of the calcium level to normal. As he was found at home on the floor his CPK was checked and was 1300 with a clinical picture consistent with nontraumatic rhabdomyolysis. Renal function was stable and the CPK trended to normal with IV fluids. Over the next couple of days his clinical picture improved and leukocytosis improved. As he had some articulation issues initially there was a question of his capacity to make decisions with regards to an endobronchial biopsy. Performance status overall appeared poor. Case management contacted a long-term health care provider of his, Gabby, who was able to come in and translate his wishes. Overall it was clear to her the patient wishes no biopsy and does not want any treatment for his lung mass, which he understands is likely malignant. A more palliative approach was taken and palliative care was able to participate in the discussion and come to the same conclusion. He remained in the hospital until a target evaluation could be performed through the office of aging prior to transition to a assisted facility. Prior to coming in he did live independently with home nursing care. Moving forward he will participate in rehab at a assisted facility with possible transition to home. However if his condition does not improve or he continues to deteriorate, it may be prudent to consider hospice. He was discharged in guarded condition with close primary care follow-up recommended. 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 Activity: Resume your previous activity Non-emergency contact: Primary Care Provider Call non-emergency contact if: you have any medication questions, your symptoms worsen, your pain is not controlled, your pain is worsening, your pain is unusual for you, your pain is concerning for you and you have a fever Follow-up/Referrals: Edgar Farias MD [Primary Care Provider] - Diet: Regular Diet Texture: Easy to Chew Addtl Attending Provider Instructions: Please take all medications as instructed on discharge list below. You are being given a couple of more days of Augmentin to complete a two week course. You may need further antibiotic therapy, however, this will be determined by the on site physician at [facility]. Symptoms such as increased shortness of breath, fever or cough should prompt further evaluation by a physician. It was a pleasure taking care of you! Please call if you have any questions or problems. You can reach a [facility] hospitalist on duty at [facility] 24 hours a day by calling [phone]. Take care of yourself. Bhavani Brown, DO [facility] Hospitalist Pending Studies at Discharge: No Stand-Alone Forms: My [facility] Skilled Items Patient informed of condition?: Yes DNR: No Discharge Level of Care: Skilled Communicable Disease: No Discharge Prognosis: Other Lines: None Urinary Catheter: No Medications and DC Order Prescriptions: New amoxicillin-pot clavulanate [Augmentin] 875-125 mg Tablet 1 tab PO BIDM Qty: 4 RF: 0 Continued atorvastatin 40 mg Tablet 40 mg PO QAM RF: 0 tamsulosin 0.4 mg Capsule 0.4 mg PO QAM RF: 0 finasteride 5 mg Tablet 5 mg PO QAM RF: 0 cholecalciferol (vitamin D3) [Vitamin D3] 25 mcg (1,000 unit) Tablet 25 mcg PO QAM RF: 0 Discharge Orders: Discharge Order (Routine); Ordered 12/15/19 Ordered By: Bhavani Brown Admission Data Admit Date/Time: 12/02/19 14:24 Attending Provider: Bhavani Brown Admit Provider: Mateo Cassidy Primary Care Provider: Edgar Farias Other Providers: Mateo Cassidy ; April Quinonez ; [facility],
== END 2019-12-15 14:45 | DRG 871 ==
LOC: ED 10:06 → 2W 14:24 → SUATTDRO 14:24 → 2W 19:55 → 3E 12-12 23:52

== ENCOUNTER 2020-01-03 15:12 | Inpatient (IN) ==
[2020-01-03] MEDS ORDERED: SODIUM CHLORIDE 0.9% 500 ML IV SCH (16:00)
--- NOTE | 2020-01-03 16:04 | XRay Report ---
XR chest 1V portable CLINICAL HISTORY: weakness COMPARISON STUDY: Chest CT December 02, 2019. Chest radiograph December 06, 2019. FINDINGS: There is no pneumothorax. A small right pleural effusion is similar to prior exam. Note is again made of the right infrahilar/right lower lobe mass with associated right lower lung airspace op acity. Old left rib fractures. Cardiac size is normal. There is no evidence for pulmonary edema. IMPRESSION: 1. Redemonstration of the known right infrahilar/right lower lobe mass with associated airspace opaci ty. 2. Small right pleural effusion. ACT 112: Negative or not required by law. Electronically signed by: Pablo Mulligan M.D. 01/03/2020 4:02 PM
--- NOTE | 2020-01-03 16:16 | Emergency Department Note ---
History of Present Illness General Chief complaint: Illness Time Seen by Provider: 01/03/20 15:36 Source: patient and RN notes reviewed Limitations: other (Intellectual disability) History of Present Illness Provider complaint: Weight loss Onset (ago): week(s) Severity: moderate (14 pounds in 3 weeks) Pain Consistency: + constant Associated symptoms: no chest pain, no fever/chills, no headaches, no nausea/vomiting and no shortness of breath This is an 79-year-old male brought in by EMS from [facility] for failure to thrive. The patient has not been eating for 2 weeks. The patient has an intellectual disability and the nurse stated that he is reported to be at his baseline. History is limited due to this disability. History was obtained via the nurse. She states that he has not been eating and lost 14 pounds in 3 weeks. He has no specific complaints. He does answer yes and no questions and denies headache, chest pain, shortness of breath, cough, nausea or vomiting, ab dominal pain, or diarrhea. Home Medications Home Medications Medication Instructions Recorded Confirmed Type finasteride 5 mg PO DAILY@0800 12/02/19 01/03/20 History tamsulosin 0.4 mg PO DAILY@0800 12/02/19 01/03/20 History amoxicillin-pot clavulanate 1 tab PO BIDM #4 tab 12/15/19 01/03/20 Rx [Augmentin] dronabinol [Marinol] 2.5 mg PO BID 01/03/20 01/03/20 History magnesium hydroxide [Milk of 30 ml PO DAILY PRN 01/03/20 01/03/20 History Magnesia] Allergies Allergy/AdvReac Type Severity Reaction Status Date / Time No Known Allergies Unverified 01/03/20 17:09 Past Med/Surg History Medical History Asthma BPH (benign prostatic hyperplasia) COPD (chronic obstructive pulmonary disease) Dyslipidemia Intellectual disability Intellectual disability Surgical History History of colonoscopy 2012 - adenomatous polyps; by Dr Bahena Social History Preferred Language: Luxembourgish Communication Ability: Effective Purchasing Administrator Required: No Current Living Situation: Alone Feels Safe at Home: Yes Smoking Status: Unknown if ever smoked Hx Alcohol Use: No Hx Substance Use: No Review of Systems See HPI for pertinent positives & negatives. and A total of 10 systems reviewed and were otherwise negative Physical Exam Vital Signs Vital Signs - 24 hr 01/03/20 15:04 01/03/20 15:40 01/03/20 18:45 Temperature 36.6 C Temperature Source Oral Pulse Rate 92 H Pulse Rate [Right Finger] 87 Respiratory Rate 16 16 16 Respiratory Effort / Characteristics Non-Labored Spontaneous Respiratory Depth Normal Normal Respiratory Pattern Regular Blood Pressure 106/54 L Blood Pressure [Right Arm] 111/64 Blood Pressure Mean 71 Blood Pressure Mean [Right Arm] 79 Blood Pressure Position [Right Arm] Lying Pulse Oximetry 96 96 94 Oxygen Delivery Method Nasal Cannula Nasal Cannula Room Air Oxygen Flow Rate 4 4 Sepsis Recent Fever Within 48 Hours No Sepsis New/Unexplained Change in Mental Status No Sepsis Action Taken by Nursing No Action Required 01/03/20 19:56 Temperature Temperature Source Pulse Rate Pulse Rate [Right Finger] 89 Respiratory Rate 16 Respiratory Effort / Characteristics Respiratory Depth Respiratory Pattern Blood Pressure Blood Pressure [Right Arm] 109/67 Blood Pressure Mean Blood Pressure Mean [Right Arm] 81 Blood Pressure Position [Right Arm] Lying Pulse Oximetry 94 Oxygen Delivery Method Room Air Oxygen Flow Rate Sepsis Recent Fever Within 48 Hours Sepsis New/Unexplained Change in Mental Status Sepsis Action Taken by Nursing Constitutional: Vital signs reviewed. Eyes: Pupils are equal round reactive to light. Conjunctiva are noninjected. ENT: Pharynx is clear without erythema or exudate. Mucous membranes are dry. Neck supple without meningeal signs. Respiratory: Clear to auscultation bilaterally. Breath sounds are equal bilaterally. Cardiovascular: Regular rate and rhythm. No rubs or gallops. GI: Soft, nondistended and nontender. Bowel sounds are present. Musculoskeletal: No peripheral edema. No lower extremity tenderness. Integumentary: No cyanosis. or jaundice. Neurological: The patient is awake and alert. No focal deficits. Psychiatric: Normal affect. Not anxious appearing. Course Administered Medications Discontinued Medications Sodium Chloride (Nss) 500 mls @ 999 mls/hr IV .Q31M NASRA Stop: 01/03/20 16:30 Last Infusion: 01/03/20 18:11 Dose: 0 mls/hr Documented by: [id number] Admin: 01/03/20 16:32 Dose: 999 mls/hr Documented by: [id number] Medical Decision Making Differential Diagnosis CHANELLE, dehydration, metabolic derangement, UTI, pneumonia Medical Records Attestation: I reviewed the patient's medical records. The patient was admitted to the hospital last month for a lung mass. This lung mass was thought to be malignant and caused a pneumonia. Palliative care was recommended and the patient was discharged to a longterm. Home Medications Current Medication List: was personally reviewed by az Laboratory Data Attestation: I reviewed the patient's lab results. Result diagrams: 01/03/20 16:29 01/03/20 17:47 Lab Results 01/03/20 01/03/20 01/03/20 Range/Units 16:29 16:29 16:29 WBC 18.42 H (4.8-10.8) K/uL RBC 4.31 L (4.7-6.1) M/uL Hgb 13.0 L (14.0-18.0) g/dL Hct 41.0 L (42-52) % MCV 95.1 (80-100) fL MCH 30.2 (25-34) pg MCHC 31.7 L (32-36) g/dL RDW Std Deviation 55.5 H (36.4-46.3) fL RDW Coeff of Robert 16.2 H (11.5-14.5) % Plt Count 219 (130-400) K/uL MPV 11.2 H (7.4-10.4) fL Immature Gran % (Auto) 1.3 % Neut % (Auto) 84.2 % Lymph % (Auto) 6.6 % Hopkins % (Auto) 7.4 % Eos % (Auto) 0.3 % Baso % (Auto) 0.2 % Immature Gran # (Auto) 0.24 H (0.00-0.02) K/uL Neut # (Auto) 15.51 H (1.4-6.5) K/uL Lymph # (Auto) 1.21 (1.2-3.4) K/uL Hopkins # (Auto) 1.37 H (0.11-0.59) K/uL Eos # (Auto) 0.06 (0-0.5) K/uL Baso # (Auto) 0.03 (0-0.2) K/uL Sodium Cancelled Potassium Cancelled Chloride Cancelled Carbon Dioxide Cancelled Anion Gap Cancelled BUN Cancelled Creatinine Cancelled Est Cr Clr Drug Dosing Cancelled Est GFR ( Amer) Cancelled Est GFR (Non-Af Amer) Cancelled BUN/Creatinine Ratio Cancelled Glucose Cancelled Calcium Cancelled Magnesium Cancelled Total Bilirubin Cancelled AST Cancelled ALT Cancelled Alkaline Phosphatase Cancelled Troponin I Cancelled Total Protein Cancelled Albumin Cancelled Globulin Cancelled Albumin/Globulin Ratio Cancelled TSH Cancelled 01/03/20 Range/Units 17:47 WBC (4.8-10.8) K/uL RBC (4.7-6.1) M/uL Hgb (14.0-18.0) g/dL Hct (42-52) % MCV (80-100) fL MCH (25-34) pg MCHC (32-36) g/dL RDW Std Deviation (36.4-46.3) fL RDW Coeff of Robert (11.5-14.5) % Plt Count (130-400) K/uL MPV (7.4-10.4) fL Immature Gran % (Auto) % Neut % (Auto) % Lymph % (Auto) % Hopkins % (Auto) % Eos % (Auto) % Baso % (Auto) % Immature Gran # (Auto) (0.00-0.02) K/uL Neut # (Auto) (1.4-6.5) K/uL Lymph # (Auto) (1.2-3.4) K/uL Hopkins # (Auto) (0.11-0.59) K/uL Eos # (Auto) (0-0.5) K/uL Baso # (Auto) (0-0.2) K/uL Sodium 143 Potassium 3.8 Chloride 109 H Carbon Dioxide 30 Anion Gap 5.0 BUN 29 H Creatinine 0.64 Est Cr Clr Drug Dosing Not Reportable Est GFR ( Amer) 107.2 Est GFR (Non-Af Amer) 92.5 BUN/Creatinine Ratio 45.7 H Glucose 128 H Calcium 11.9 H Magnesium 2.2 Total Bilirubin 1.0 AST 10 L ALT 9 L Alkaline Phosphatase 108 Troponin I 0.021 Total Protein 6.5 Albumin 1.9 L Globulin 4.6 H Albumin/Globulin Ratio 0.4 L TSH 0.339 Imaging Data Radiologist's Impression: XR chest 1V portable CLINICAL HISTORY: weakness COMPARISON STUDY: Chest CT December 02, 2019. Chest radiograph December 06, 2019. FINDINGS: There is no pneumothorax. A small right pleural effusion is similar to prior exam. Note is again made of the right infrahilar/right lower lobe mass with associated right lower lung airspace opacity. Old left rib fractures. Cardiac size is normal. There is no evidence for pulmonary edema. IMPRESSION: 1. Redemonstration of the known right infrahilar/right lower lobe mass with associated airspace opacity. 2. Small right pleural effusion. ACT 112: Negative or not required by law. Electronically signed by: Pablo Mulligan M.D. 01/03/2020 4:02 PM ECG Data Attestation: I personally reviewed and interpreted this ECG as follows: Indication: + weakness Rate (beats per minute): 92 Rhythm: + normal sinus ECG Intervals/blocks: + Right Bundle branch block ECG ST segments: no ST depression ECG Findings: no PVCs Comparison ECG Date: from (December 02, 2019) Change: no significant change Blood Pressure Blood Pressure Findings: Normal blood pressure Blood Pressure Disposition: further management by hospitalist MDM Narrative I did evaluate the patient as noted above. Limited due to the intellectual disability. I did obtain additional history from Luís who is an RN at [facility]. He states that the patient has not been eating for the past several days. He has been unable to drink very much as well. He states that he is concerned that the patient has a problem with swallowing. The patient has not been placed on hospice. The patient apparently does not have a legal guardian. There are no family members to contact. He is currently on antibiotics for his pneumonia. The patient was sent here for IV fluids and further care. IV access was established. I did place an order for continuous cardiac monitoring. The monitor showed normal sinus rhythm rate of 86. I did order and personally review the patient's 12-lead EKG as described above. He has no acute ischemic changes. I did order and personally reviewed the images of the patient's chest x-ray as described above. He has a persistent mass on the right side with airspace opacity which is unchanged. I did order a urine analysis. I did order and review the patient's blood work as noted in the electronic medical record. His white blood cell count is elevated at 18,000. Troponin is negative. He is slightly anemic. Calcium is elevated at 11.9. I did treat him with normal saline IV. I did discuss the case with the hospitalist and residential case manager for further care in the hospital. Impression & Plan Acute dehydration, Mass of right lung, Dysphasia, Adult failure to thrive, Hypercalcemia Discharge Plan Visit Data *Final* Discharge Date/Time: 01/03/20 21:44 Chief Complaint: Illness ED Provider: Jas Allen Discharge Problem: Acute dehydration, Mass of right lung, Dysphasia, Adult failure to thrive, Hypercalcemia Patient Disposition: Admitted As Inpatient Discharge Instructions Interventions: ED Discharge Assessment Last Done: 01/03/20 21:44
[2020-01-03 16:37] LABS: Basophils # (auto) 0.03 K/uL (0-0.2); Basophils % (auto) 0.2 %; Eosinophils # (auto) 0.06 K/uL (0-0.5); Eosinophils % (auto) 0.3 %; Immature Granulocytes # (auto) 0.24 K/uL (0.00-0.02); Immature Granulocytes % (auto) 1.3 %; Lymphocytes # (auto) 1.21 K/uL (1.2-3.4); Lymphocytes % (auto) 6.6 %; Mean Corpuscular Hemoglobin 30.2 pg (25-34); Mean Corpuscular Hgb Conc 31.7 g/dL (32-36); Mean Corpuscular Volume 95.1 fL (80-100); Mean Platelet Volume 11.2 fL (7.4-10.4); Monocytes # (auto) 1.37 K/uL (0.11-0.59); Monocytes % (auto) 7.4 %; Neutrophils # (auto) 15.51 K/uL (1.4-6.5); Neutrophils % (auto) 84.2 %; Platelet Count 219 K/uL (130-400); RDW Coefficient of Variation 16.2 % (11.5-14.5); RDW Standard Deviation 55.5 fL (36.4-46.3); Red Blood Count 4.31 M/uL (4.7-6.1); White Blood Count 18.42 K/uL (4.8-10.8)
[2020-01-03 18:42] LABS: Alanine Aminotransferase 9 U/L (12-78); Albumin Globulin Ratio 0.4 (0.9-2); Albumin Level 1.9 gm/dl (3.4-5.0); Alkaline Phosphatase 108 U/L (45-117); Aspartate Aminotransferase 10 U/L (15-37); BUN Creatinine Ratio 45.7 (10-20); Blood Urea Nitrogen 29 mg/dl (7-18); Calcium 11.9 mg/dl (8.5-10.1); Carbon Dioxide 30 mmol/L (21-32); Chloride 109 mmol/L (98-107); Est GFR (African American) 107.2; Est GFR (Non-African American) 92.5; Globulin 4.6 gm/dl (2.5-4.0); Glucose 128 mg/dl (70-99); Magnesium 2.2 mg/dl (1.8-2.4); Potassium 3.8 mmol/L (3.5-5.1); Sodium 143 mmol/L (136-145); Thyroid Stimulating Hormone 0.339 uIu/ml (0.300-4.500); Total Protein 6.5 gm/dl (6.4-8.2); Troponin I 0.021 ng/ml (0-0.045)
[2020-01-03] MEDS ORDERED: ACETAMINOPHEN 325 MG TAB PO PRN (22:02)
[2020-01-03] MEDS ORDERED: ONDANSETRON INJ 2 MG/ML 2 ML VIAL IV PRN (22:02)
[2020-01-03] MEDS ORDERED: POLYETHYLENE (MIRALAX) 17 GM PACK PO PRN (22:02)
[2020-01-03] MEDS ORDERED: MAGNESIUM HYDROXIDE SUSP 30 ML UDC PO PRN (22:02)
[2020-01-03] MEDS ORDERED: PIPERACILL/TAZOBAC CONSULT ACTIVE PRN (22:02)
[2020-01-03] MEDS ORDERED: PATIENT'S HEIGHT AND/OR WEIGHT NEEDED SCH (22:45)
[2020-01-03] MEDS ORDERED: PIPERACILLIN/TAZOBACTAM 3.375 GM in DEXTROSE 5% 100 ML IV ONE (23:00)
--- NOTE | 2020-01-03 23:30 | History and Physical Report ---
DATE OF ADMISSION: 01/03/2020 CHIEF COMPLAINT: Failure to thrive. HISTORY OF PRESENT ILLNESS: This is an 79-year-old male with past medical history significant for intellectual disability, COPD, BPH, hyperlipidemia, who was recently admitted to the hospital on 12/02/2019 with complaint of fall and discharged on 12/15/2019 to [facility]. At that time, he was found to have sepsis, postobstructive pneumonia and mass of the right lung,and hypercalcemia.Last admission he found lying on the floor for some time, so there was also some rhabdomyolysis and COVID-[address] chest showed right hilar mass with extensive involvement of the right lower and middle lobes. Pulmonary was consulted and recommended bronchoscopy. For hypercalcemia, received IV fluids and calcitonin. Once he was improved, the patient was evaluated for bronchoscopy. The patient has some articulation issues and intellectual disability. There is question of capacity to make decisions regarding endobronchial biopsy. Case management contacted long-term healthcare provider of this patient, Ms. Pierre, who can understand him and translate his wishes. Finally, it was felt that it was clear the patient does not want any biopsy and does not want any treatment for his lung mass, which he understands is likely malignant and a more palliative approach was decided and he was discharged to [facility]. As per [facility], since he got there, since last 3 weeks he lost about 14 pounds. He is not eating, poor appetite,. The patient is currently on pureed diet and thin liquids, but the patient is afraid of aspiration,and is not eating. He has garbled speech, but his caregiver can understand him well. She sometimes comes to see him to [facility]. They also asked him about tube feeding, which the patient refused as per the [facility]. There was no fever or chills, no complaints of any pain. He has loose stools since last week because he is mostly on liquid diet. He occasionally coughs when he is taking liquids, no fevers. He is bed bound. Because of his failure to thrive and not eating, he was sent here. The patient is still full code. Currently, the patient has some garbled speech. He says he is fine. He says he has no pain. Hemodynamics are stable. Alert and awake. Could not get any history from the patient. ALLERGIES: No known drug allergies. PAST MEDICAL HISTORY: As mentioned above. PAST SURGICAL HISTORY: History of colonoscopy. MEDICATIONS: The patient is on Marinol 2.5 mg p.o. b.i.d., finasteride 5 mg p.o. daily, milk of magnesia 30 mL daily p.r.n., Flomax 0.4 mg p.o. daily. FAMILY HISTORY: Unknown. SOCIAL HISTORY: Currently living at [facility]. Former smoker, quit in 2008, smoked 1 pack a day for 40 years as per records. No history of alcohol use. No history of substance abuse. REVIEW OF SYSTEMS: Unobtainable at this time. PHYSICAL EXAMINATION: GENERAL: The patient is old and frail, not in acute distress. VITAL SIGNS: Temperature 36.6, pulse 89, respiratory rate 16, blood pressure 109/67, oxygen 95% on room air. HEENT: No pallor, no icterus. Pupils equal, round, and reactive to light. NECK: No neck masses. No JVD observed. CARDIOVASCULAR: S1, S2 heard. Regular rate and rhythm, no murmur, no gallop. RESPIRATORY SYSTEM: Normal AP diameter. No accessory muscle use. Bilateral mild rhonchi heard. No wheezing. ABDOMEN: Soft, bowel sounds present, nontender. No distention. CENTRAL NERVOUS SYSTEM: Alert and awake, garbled speech, does not obey commands. EXTREMITIES: No edema, no erythema. LABORATORY DATA: WBC 18.4, hemoglobin 13, hematocrit 41, platelets 219. Sodium 143, potassium 3.8, chloride 109, bicarbonate 30, BUN 29, creatinine 0.6, serum glucose 128, calcium 11.9, magnesium 2.2, total bilirubin 1, AST 10, ALT 9, alkaline phosphatase 108. Troponin I of 0.021. TSH 0.339. IMAGING DATA: Chest x-ray, redemonstration of the known infrahilar right lower lobe mass with associated airspace opacities, small right pleural effusion. ASSESSMENT AND PLAN: This 79-year-old male was recently found to have right lung mass and treated for postobstructive pneumonitis and sent to [facility], comes back with failure to thrive. 1. Failure to thrive. As per [facility], the patient lost about 14 pounds in last 3 weeks. He is on pureed diet and thin liquids, but patient is refusing to eat. One of the things he is worried about is aspiration. He seems to has dysphagia. He is already on Marinol, which will be continued.. Will place him on clear liquid diet for now. Speech evaluation and marine services technician evaluation in a.m. 2. Right lung mass. Last admission he refused bronchoscopy and biopsy and any treatment. Questionable for postobstructive pneumonitis. Again, we will follow CT chest as he has leukocytosis. We will empirically place on IV Zosyn. Follow the cultures. Follow the CAT scan. 3. Intellectual disability. Ms. Pierre is the patient's hotel receptionist who works for [employer]. Patients family service caseworker is Miss. Trini Sheehan, phone number [phone] who works for [employer]. The patient has no living relatives, no power of litigation attorney associate. Currently he is Full code. Before the last admission, he was fairly high functioning and there were several months of decline before he got admitted last time. He has some garbled speech, but seems to understand him and as per [facility], he refused tube feedings. He is currently bedbound. We may need to get the help of his intermediate designer technical healthcare consultant for further decisions. 4. Benign prostatic hypertrophy, on tamsulosin and finasteride. 5. Deep venous thrombosis prophylaxis, heparin subQ. 6. Disposition: Admit to medical floor. Expect to discharge back to [facility] when stable. Social service to help with discharge planning. If not improving, may need to consider hospice. Guarded prognosis with his underlying malignancy. MTDD
--- NOTE | 2020-01-03 23:50 | CT Scan Report ---
CT SCAN OF THE CHEST WITHOUT IV CONTRAST CLINICAL HISTORY: Postobstructive pneumonia. COMPARISON STUDY: Chest CT dated 12/02/2019. Chest x-ray dated 01/03/2020. TECHNIQUE: CT scan of the thorax was performed from the thoracic inlet to the upper abdomen. Images are reviewed in the axial, sagittal, and coronal planes. IV contrast was not administered for this ex amination as per the referring clinician. Note that the examination was performed in suboptimal fashi on without IV contrast. A dose lowering technique was utilized adhering to the principles of ALARA. CT DOSE: 219.96 mGy.cm FINDINGS: Thyroid: Imaged portions of the thyroid gland are normal in size and attenuation. Thoracic aorta: There is mild atherosclerotic calcification of the thoracic aorta, which is normal in caliber and demonstrates standard 3-vessel arch anatomy. Heart: The heart is normal in size noting trace pericardial effusion. The coronary arteries are dense ly calcified. Lungs and pleural spaces: The right infrahilar mass lesion seen on 12/02/2019 is not well evaluated. T here is obstruction of the right lower lobe bronchus with near complete atelectasis of the right lowe r lobe. There is a small to moderate associated right-sided pleural effusion. There is significant na rrowing of the right middle lobe bronchus. Foci of patchy nodular consolidation are seen in the right upper, right middle, and left lower lobes. Mediastinum: Mediastinal lymphadenopathy similar to previous. Pretracheal nodes measure up to 1.8 cm short axis. AP window nodes measure up to 1.6 cm in short axis. A subcarinal ernesto anchor did measure s approximately 3.7 x 3.4 cm. Shantelle: Not well assessed without IV contrast. Axillae: There is no axillary lymphadenopathy. Upper abdomen: A 3 cm cyst is partially visualized in the right kidney. Partially imaged upper abdomi nal viscera is otherwise grossly unremarkable. Skeletal structures: The skeletal structures are osteopenic. Degenerative change is noted throughout the thoracic spine. There is a compression deformity of L1. No lytic or blastic bony lesions are seen . IMPRESSION: 1. The large right hilar/infrahilar mass lesion seen on 12/02/2019 is not well evaluated due to occlus ion of the right lower lobe bronchus and near complete atelectasis of the right lower lobe. 2. A small to moderate right pleural effusion has significantly increased in size from 12/02/2019. 3. Patchy nodular consolidation is seen in the right upper, right middle, and left lower lobes. Corre late clinically for evidence of an infectious/inflammatory pneumonitis. Lymphangitic spread of tumor throughout the right lung could also have a similar appearance. 4. Mediastinal lymphadenopathy is similar to previous. 5. Additional findings as above. ACT 112: Negative or not required by law. Electronically signed by: Rajendra Callahan M.D. 01/03/2020 11:49 PM
[2020-01-04] MEDS: SODIUM CHLORIDE 0.9% 1000ML 1,000 ML IV SCH ×2 (00:38→07:18)
[2020-01-04] MEDS: HEPARIN SOD 5,000 UNIT/0.5 ML VIAL SQ SCH ×4 (00:42→21:24)
[2020-01-04 05:45] LABS: Basophils # (auto) 0.04 K/uL (0-0.2); Basophils % (auto) 0.2 %; Eosinophils # (auto) 0.23 K/uL (0-0.5); Eosinophils % (auto) 1.4 %; Hematocrit (blood only) 38.5 % (42-52); Immature Granulocytes # (auto) 0.23 K/uL (0.00-0.02); Immature Granulocytes % (auto) 1.4 %; Lymphocytes % (auto) 7.1 %; Mean Corpuscular Hemoglobin 29.7 pg (25-34); Mean Corpuscular Hgb Conc 31.2 g/dL (32-36); Mean Corpuscular Volume 95.3 fL (80-100); Mean Platelet Volume 10.4 fL (7.4-10.4); Monocytes # (auto) 1.45 K/uL (0.11-0.59); Monocytes % (auto) 8.6 %; Neutrophils # (auto) 13.66 K/uL (1.4-6.5); Neutrophils % (auto) 81.3 %; Platelet Count 267 K/uL (130-400); RDW Coefficient of Variation 15.6 % (11.5-14.5); RDW Standard Deviation 54.7 fL (36.4-46.3); Red Blood Count 4.04 M/uL (4.7-6.1); White Blood Count 16.81 K/uL (4.8-10.8)
[2020-01-04] MEDS: PIPERACILLIN/TAZOBACTAM 3.375 GM in DEXTROSE 5% 100 ML IV SCH ×3 (05:57→21:21)
[2020-01-04 06:11] LABS: BUN Creatinine Ratio 47.5 (10-20); Calcium 11.6 mg/dl (8.5-10.1); Creatinine Clr Calc Pharmacy 75.1 ml/min; Est GFR (African American) 110.8; Est GFR (Non-African American) 95.6; Magnesium 2.2 mg/dl (1.8-2.4); Phosphorus 2.2 mg/dl (2.5-4.9); Potassium 3.7 mmol/L (3.5-5.1)
[2020-01-04] MEDS ORDERED: SODIUM PHOSPHATE 3 MMOL/1 ML INFUSION IV STA (06:20)
[2020-01-04] MEDS ORDERED: SODIUM PHOSPHATE 21 MMOL in SODIUM CHLORIDE 0.9% 500 ML IV ONE (06:30)
[2020-01-04] MEDS ORDERED: SODIUM CHLORIDE 0.45 % 1,000 ML IV SCH (06:30)
[2020-01-04] MEDS: MEDICAL MARIJUANA PO SCH ×3 (06:33→20:47)
--- NOTE | 2020-01-04 07:06 | Electrocardiogram Report ---
Test Reason : Blood Pressure : / mmHG Vent. Rate : 092 BPM Atrial Rate : 092 BPM P-R Int : 122 ms QRS Dur : 124 ms QT Int : 386 ms P-R-T Axes : 028 011 051 degrees QTc Int : 477 ms Poor data quality, interpretation may be adversely affected Sinus rhythm with Premature supraventricular complexes Right bundle branch block ST elevation consider inferior injury or acute infarct ACUTE PA / STEMI Abnormal ECG When compared with ECG of 03-JAN-2020 15:37, (unconfirmed) Premature supraventricular complexes are now Present Confirmed by Marco Antonio Trujillo ([id number]) on 01/04/2020 7:06:12 AM [facility] Confirmed By:Mike Trujillo
--- NOTE | 2020-01-04 07:07 | Electrocardiogram Report ---
Test Reason : Blood Pressure : / mmHG Vent. Rate : 092 BPM Atrial Rate : 092 BPM P-R Int : 130 ms QRS Dur : 126 ms QT Int : 402 ms P-R-T Axes : 032 014 057 degrees QTc Int : 497 ms Poor data quality, interpretation may be adversely affected Sinus rhythm with marked sinus arrhythmia Right bundle branch block ST elevation consider inferolateral injury or acute infarct ACUTE VA / STEMI Abnormal ECG When compared with ECG of 02-DEC-2019 11:13, ST more elevated in Inferior leads Confirmed by Marco Antonio Trujillo ([id number]) on 01/04/2020 7:07:29 AM [facility] Confirmed By:Mike Trujillo
[2020-01-04 07:56] LABS: Appearance Urine Cloudy (Clear); Bacteria Urine Automated Negative (Negative); Blood Urine Negative (Negative); Color Urine Dark Yellow; Epithelial Cell Urine Auto 20-30 /lpf (0-5); Glucose Urine UA Negative (Negative); Ketones Urine Negative (Negative); Leukocyte Esterase Urine Negative (Negative); Nitrite Urine Negative (Negative); Protein Urine Negative (Negative); Specific Gravity Urine 1.028 (1.000-1.030); Urobilinogen Urine Negative (Negative)
[2020-01-04 08:09] LABS: Bilirubin Urine Negative (Negative); Ictotest Urine Negative (Negative)
[2020-01-04] MEDS: TAMSULOSIN HCL 0.4 MG CAP PO SCH (09:40)
[2020-01-04] MEDS: FINASTERIDE 5 MG TAB PO SCH (09:40)
[2020-01-04] MEDS ORDERED: PNEUMOCOCCAL Polysaccharide Vaccine 25mcg/0.5mL vial/Syr IM ONE (10:15)
[2020-01-04] MEDS: CALCITONIN SALMON 400 UNITS/2 ML SQ SCH ×2 (10:32→20:45)
--- NOTE | 2020-01-04 11:53 | Pulmonary Consultation ---
Date of Consultation January 04, 2020 Assessment & Plan (1) Mass of right lung: CT chest 01/03/2020: Again appreciated is mediastinal lymphadenopathy and station 4R, 10 R, 7. Now there is total obstruction of the RBI leading to collapse of the right lower lobe. There is associated right-sided pleural effusion. The mass seems to be encasing the great vessels. Tree-in-bud opacities peripherally also appreciated in the right middle lobe Compared to the CT chest done 12/02/2019 now there seems to be progression of the RBI obstruction leading to right lower lobe collapse. --Right hilar mass with mediastinal lymphadenopathy In a patient who is a smoker with hypercalcemia This is malignancy until proven otherwise, squamous cell carcinoma high in differential Patient will definitely benefit from EBUS to get the tissue diagnosis --Atelectasis of the right lower lobe This is likely secondary to obstruction of the RBI from the mass This is structural obstruction unfortunately there is not much which can be done here. Keep the patient on the left side --Right-sided pleural effusion Likely secondary to right lobar collapse on top of malignancy I do not think that is causing the patient any distress --COPD Not in exacerbation Continue with inhaled treatment --Hypercalcemia Calcium 11.6, corrected calcium 13.3 On the previous admission patient PTH was low normal and PTHRP was 20 I think it is a component of primary hyperparathyroidism as well playing a role here. Recommend IV fluids as well as biphosphonate and calcitonin I will defer management to primary team Plan: Patient is known to me from his previous admission where he came with incidental finding of hilar mass and postobstructive pneumonia. Patient did not have the capacity to make complex decisions like EBUS. There is still no clear documentation of who is the POA and can consent for the patient. Overall prognosis of the patient is very poor given that the RBI obstruction has progressed to total collapse of the right lower lobe. Given the overall poor status I think palliative care consult should be appropriate here. Unfortunately unless there is somebody to consent for the patient there is nothing much I can offer except for supportive care. (2) Abnormal CT scan, chest: History of Present Illness Attending Physician: Mateo Cassidy MD History of Present Illness 79-year-old male known to our pulmonary service as he was seen by me on his previous admission. He has intellectual disability and there was issues regarding his capacity on his previous admission. Last time he was admitted for cough and was found to have a right hilar mass with postobstructive pneumonia in the right lower lobe. Unfortunately they were not able to find anybody to consent for the procedure to get the diagnosis and [facility]. There is documentation from palliative care from previous visit that patient did not want anything to be done including biopsy as well as PEG tube placement. He comes back from the jail because of failure to thrive. He has lost 15 pounds since last month. At the time of examination patient is very poor historian. He has found to be coughing all the time with gurgling. He speech is very difficult to understand. Pulmonary is consulted for right lower lobe collapse and pleural effusion on the right side. Social history: Greater than [id number] smoking history. Allergies Allergy/AdvReac Type Severity Reaction Status Date / Time No Known Allergies Unverified 01/03/20 17:09 Home Medications Home Medications Medication Instructions Recorded Confirmed Type finasteride 5 mg PO DAILY@0800 12/02/19 01/03/20 History tamsulosin 0.4 mg PO DAILY@0800 12/02/19 01/03/20 History amoxicillin-pot clavulanate 1 tab PO BIDM #4 tab 12/15/19 01/03/20 Rx [Augmentin] dronabinol [Marinol] 2.5 mg PO BID 01/03/20 01/03/20 History magnesium hydroxide [Milk of 30 ml PO DAILY PRN 01/03/20 01/03/20 History Magnesia] Patient History Medical History Asthma BPH (benign prostatic hyperplasia) COPD (chronic obstructive pulmonary disease) Dyslipidemia Intellectual disability Intellectual disability Surgical History History of colonoscopy 2013 - adenomatous polyps; by Dr Bahena Social History Preferred Language: Iraqi Communication Ability: Impaired Communication Ability Comment: Arpan speech Clean In Places Operator Required: No Beliefs That Will Affect Care: None marital status: Single Current Living Situation: Assisted Other Information That Helps Us Care for You: No Feels Safe at Home: Yes Safety Concerns: Feels Safe At This Time Smoking Status: Unknown if ever smoked Hx Alcohol Use: No Hx Substance Use: No Review of Systems Review of Systems: Unobtainable due to cognitive status Physical Exam Physical Exam: Constitutional: No acute distress, actively coughing HEENT: EOMI, PERRLA, difficult to comprehend speech Respiratory system: Decreased air entry on the right side, no wheeze, no rhonchi CVS: S1-S2 positive, no murmurs or gallops Abdomen: Soft, nontender, nondistended, positive bowel sounds x4 Extremities: +2 pulses bilaterally radialis/ dorsalis pedis, no cyanosis, no edema Neuro: Oriented to self, awake Psych: Normal mood and affect G/U: No Huang Skin: no rashes, warm and dry Lymphatic: no cervical or axillary lymphadenopathy Results & Data Results & Data ([facility]) Vital Signs (Past 12 Hours) Vital Signs Temp Pulse Resp BP Pulse Ox 01/04/20 07:50 36.4 C L 92 H 18 104/66 93 01/04/20 05:19 01/04/20 05:19 PG Care Time/CCT Total # of Minutes Spent Total Time Spent with Patient: Total time spent is greater than 50% in coordin ation of care (as documented) at patient's floor/unit and/or counseling patient: Coding Level of Care Code 79999 Initial Inpt Care Lvl 3 Diagnoses Mass of right lung R91.[address] scan, chest R93.89
[2020-01-04] MEDS: D5W AND 1/2NSS 1,000 ML IV SCH (14:23)
--- NOTE | 2020-01-04 15:52 | Palliative Care Consultation ---
Date of Consultation January 04, 2020 Assessment & Plan (1) Palliative care encounter: Pt is an 79 yo male known to our service when last seen on 12/08 during his prior hospitalization. His PMH is significant for intellectual disability, COPD, BPH, dyslipidemia, and right hilar lung mass for which he has refused biopsy or further work-up. Patient has also refused feeding tube placement. During his last admission was able to meet with the patient along with his lung time caregiver Ms. Pierre as she understands his mumbled speech. Patient presented to the ED on 01/02 from the [facility] where he has been since his discharge in November. Patient has had poor p.o. intake, refusing to eat at times, with a reported 14 pound weight loss. Patient has a caregiver/lay out and detail drafter, Gabby, through [employer] services, as well as a renal case manager, Trini SheehanTpofumv-[phone]. On his admission in November, CT scan showed neoplastic invasion of the right mainstem bronchus and bronchus intermedius resulting in bronchial obstruction and postobstructive mucous plugging. 3. 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 Patient seen and examined, no acute distress. Able to make out a few words. Patient not wanting to eat, denies any pain or discomfort. Spoke with patient's case management, Trini Sheehan, she is to contact her show operations supervisor regarding plan of care for Mr. Rocha. Ms. Sheehan familiar with the patient, reported that he in the past has clearly stated he does not want a feeding tube or further work- up of this hilar mass, she agrees that coming to the hospital is of no benefit, she is to contact her show operations supervisor regarding ability to place patient under hospice care and what would be required to change his CODE STATUS. She will coordinate with case management and I will follow-up on 01/05. Agree that with patient's prior stated wishes, current condition that placement back at the [facility] with hospice care would be appropriate with comfort feeds (2) Adult failure to thrive: Patient refusing to eat, denies hunger, likely due to neoplasm in the right lung. Patient has adamantly refused feeding tube on prior admissions (3) Dysphasia: Aspiration precautions, comfort feeds (4) Mass of hilum: Patient has refused further work-up or treatment (5) Intellectual disability: Mild-able to make his wishes and needs known History of Present Illness Reason for Consultation: Address CODE STATUS and goals of care Requesting Physician: Dr. Mateo Cassidy Attending Physician: Mateo Cassidy MD History of Present Illness Pt is an 79 yo male known to our service when last seen on 12/08 during his prior hospitalization. His PMH is significant for intellectual disability, COPD, BPH, dyslipidemia, and right hilar lung mass for which he has refused biopsy or further work-up. Patient has also refused feeding tube placement. During his last admission was able to meet with the patient along with his lung time caregiver Ms. iPerre as she understands his mumbled speech. Patient presented to the ED on 01/02 from the [facility] where he has been since his discharge in November. Patient has had poor p.o. intake, refusing to eat at times, with a reported 14 pound weight loss. Patient has a caregiver/lay out and detail drafter, Gabby, through [employer] services, as well as a renal case manager, Trini SheehanHrijrnv-[phone]. On his admission in November, CT scan showed neoplastic invasion of the right mainstem bronchus and bronchus intermedius resulting in bronchial obstruction and postobstructive mucous plugging. 3. 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 Patient seen and examined, no acute distress. Able to make out a few words. Patient not wanting to eat, denies any pain or discomfort. Spoke with patient's case management, Trini Sheehan, she is to contact her show operations supervisor regarding plan of care for Mr. Rocha. Ms. Sheehan familiar with the patient, reported that he in the past has clearly stated he does not want a feeding tube or further work- up of this hilar mass, she agrees that coming to the hospital is of no benefit, she is to contact her show operations supervisor regarding ability to place patient under hospice care and what would be required to change his CODE STATUS. She will coordinate with case management and I will follow-up on 01/05. Agree that with patient's prior stated wishes, current condition that placement back at the [facility] with hospice care would be appropriate. Allergies Allergy/AdvReac Type Severity Reaction Status Date / Time No Known Allergies Unverified 01/03/20 17:09 Home Medications Home Medications Medication Instructions Recorded Confirmed Type finasteride 5 mg PO DAILY@0800 12/02/19 01/03/20 History tamsulosin 0.4 mg PO DAILY@0800 12/02/19 01/03/20 History amoxicillin-pot clavulanate 1 tab PO BIDM #4 tab 12/15/19 01/03/20 Rx [Augmentin] dronabinol [Marinol] 2.5 mg PO BID 01/03/20 01/03/20 History magnesium hydroxide [Milk of 30 ml PO DAILY PRN 01/03/20 01/03/20 History Magnesia] Patient History Medical History Asthma BPH (benign prostatic hyperplasia) COPD (chronic obstructive pulmonary disease) Dyslipidemia Intellectual disability Intellectual disability Surgical History History of colonoscopy 2013 - adenomatous polyps; by Dr Bahena Social History Preferred Language: Sudanese Communication Ability: Impaired Communication Ability Comment: Garbled speech Outsole Tacker Required: No Beliefs That Will Affect Care: None marital status: Single Current Living Situation: [facility] Other Information That Helps Us Care for You: No Feels Safe at Home: Yes Safety Concerns: Feels Safe At This Time Smoking Status: Unknown if ever smoked Hx Alcohol Use: No Hx Substance Use: No Review of Systems Review of Systems: ROS limited due to patient's mumbled speech-patient does deny pain or discomfort, shortness of breath, chest pain or abdominal pain. Physical Exam Physical Exam: PE: Patient appears comfortable, no acute distress, patient is thin and frail HEENT: EOMI, hearing within normal limits Respirations: Clear breath sounds CV: Regular rate, no edema Abdomen: Soft, nontender Extremities: Thin and cachectic Neuro: Mumbled speech, generalized weakness Results & Data Vital Signs (Past 12 Hours) Vital Signs Temp Pulse Resp BP Pulse Ox 01/04/20 15:13 97.9 F 98 H 18 88/55 L 93 01/04/20 14:09 93 01/04/20 07:50 97.5 F L 92 H 18 104/66 93 PG Care Time/CCT Total # of Minutes Spent Total Time Spent with Patient: Total time spent 70 minutes with greater than 50% of the time spent at bedside assessing patient's current status and addressing goals of care. Collaborated with attending physician as well as his renal case manager and case management at the hospital. Coding Level of Care Code 95400 Inpt Consult Level 3 Diagnoses Palliative care encounter Z51.5 Adult failure to thrive R62.7 Dysphasia R47.02 Mass of hilum R91.8 Intellectual disability F79 Time Spent (min) 70
--- NOTE | 2020-01-04 19:02 | Hospitalist Progress Note ---
Date of Service January 04, 2020 Assessment & Plan (1) Mass of right lung: Right hilar mass with mediastinal lymphadenopathy (In a patient who is a smoker with hypercalcemia This is malignancy until proven otherwise, squamous cell carcinoma high in differential as per pulmonary doctor Devi) Atelectasis of the right lower lobe Right-sided pleural effusion -CT chest 01/03/2020: Again appreciated is mediastinal lymphadenopathy and station 4R, 10 R, 7. Now there is total obstruction of the RBI leading to collapse of the right lower lobe. There is associated right-sided pleural effusion. The mass seems to be encasing the great vessels. Tree-in-bud opacities peripherally also appreciated in the right middle lobe Compared to the CT chest done 12/02/2019 now there seems to be progression of the RBI obstruction leading to right lower lobe collapse. -as per pulmonary Dr. Quinonez on 01/04/2020: "Patient is known to me from his previous admission where he came with incidental finding of hilar mass and postobstructive pneumonia. Patient did not have the capacity to make complex decisions like EBUS. There is still no clear documentation of who is the POA and can consent for the patient. Overall prognosis of the patient is very poor given that the RBI obstruction has progressed to total collapse of the right lower lobe. Given the overall poor status I think palliative care consult should be appropriate here. Unfortunately unless there is somebody to consent for the patient there is no thing much I can offer except for supportive care." COPD -Not in exacerbation -Continue with inhaled treatment Hypercalcemia -Calcium 11.6, corrected calcium 13.[address] Quinonez "On the previous admission patient PTH was low normal and PTHRP was 20 I think it is a component of primary hyperparathyroidism as well playing a role here. Recommend IV fluids as well as biphosphonate and calcitonin" -however, in my opinion as hospitalist, that there is potential for jaw necrosis with IV bisphosphonates and that patient also has dehydration which can increase serum calcium, will give IV fluids with D5 1/2 normal saline, will increase rate to 100 cc/hr , was given calcitonin 200 SQ BID from admission with stop date on 01/05/2020 Adult failure to thrive (Severe malnutrition e/b 10.6% loss in Body weight) -79-year-old male who presents with adult failure to thrive, lung mass, and a 10.6% loss in body weight over the past 3 weeks - As per [facility], the patient lost about 14 pounds in last 3 weeks. He is on pureed diet and thin liquids, but patient is refusing to eat. He seems to has dysphagia, diet as tolerated. IV fluids with dextrose. check serum glucose Dysphasia -Aspiration precautions, comfort feeds Intellectual disability -Ms. Pierre is the patient's drying equipment operator who works for [employer]. Patients wrapper caser is Miss. Trini Sheehan, phone number [phone] who works for [employer]. The patient has no living relatives, no power of real estate associate attorney. Currently he is Full code. Before the last admission, he was fairly high functioning and there were several months of decline before he got admitted last time. He has some garbled speech, but seems to understand him and as per [facility], he refused tube feedings. He is currently bedbound. -Case management and palliative care following in regards to determining who else can be involved in guardian ship and advanced medical decision making Benign prostatic hypertrophy -on tamsulosin and finasteride. Deep venous thrombosis prophylaxis, heparin subQ. Admission and Anticipated Discharge Date Admission Date: January 03, 2020 Subjective Patient has difficulties with verbal communicating his wishes. He is NPO because he is aspiration risk. He is on room air. He is on D5 1/2 normal saline IV fluids Review of Systems Review of Systems: Unobtainable due to cognitive status Physical Exam Constitutional: + frail appearing Eyes: PERRL, conjunctivae normal, anicteric sclerae ENMT: external ear and nose normal, oropharynx normal Neck: normal visual inspection Respiratory: normal respiratory effort Cardiovascular: Rate/Rhythm: regular rate and regular rhythm Gastrointestinal (Abdomen): Inspection/Auscultation: abdomen normal to inspection Percussion/Palpation: abdomen soft Musculoskeletal: Head/Neck/Chest: normocephalic Neurologic: PERRL, EOMI, accommodation nl, no face palsy, no dysarthria awake Psychiatric: Orientation: alert Eye Contact: + poor eye contact Results & Data Results & Data ([facility]) Vital Signs (Past 12 Hours) Vital Signs Temp Pulse Resp BP Pulse Ox 01/04/20 15:13 36.6 C 98 H 18 88/55 L 93 01/04/20 14:09 93 01/04/20 07:50 36.4 C L 92 H 18 104/66 93
[2020-01-04] MEDS ORDERED: CALCITONIN SALMON 400 UNITS/2 ML SQ ONE (21:00)
[2020-01-04] MEDS: guaiFENesin 600 MG TABCR PO SCH (21:17)
[2020-01-05] MEDS: D5W AND 1/2NSS 1,000 ML IV SCH ×2 (02:21→17:09)
[2020-01-05 05:12] LABS: Basophils # (auto) 0.03 K/uL (0-0.2); Basophils % (auto) 0.2 %; Eosinophils # (auto) 0.21 K/uL (0-0.5); Eosinophils % (auto) 1.4 %; Hematocrit (blood only) 34.3 % (42-52); Immature Granulocytes # (auto) 0.25 K/uL (0.00-0.02); Immature Granulocytes % (auto) 1.7 %; Lymphocytes # (auto) 1.33 K/uL (1.2-3.4); Lymphocytes % (auto) 8.8 %; Mean Corpuscular Hemoglobin 29.7 pg (25-34); Mean Corpuscular Hgb Conc 32.1 g/dL (32-36); Mean Corpuscular Volume 92.7 fL (80-100); Mean Platelet Volume 10.5 fL (7.4-10.4); Monocytes # (auto) 1.08 K/uL (0.11-0.59); Monocytes % (auto) 7.2 %; Neutrophils # (auto) 12.18 K/uL (1.4-6.5); Neutrophils % (auto) 80.7 %; Platelet Count 238 K/uL (130-400); RDW Coefficient of Variation 15.6 % (11.5-14.5); RDW Standard Deviation 52.7 fL (36.4-46.3); White Blood Count 15.08 K/uL (4.8-10.8)
[2020-01-05] MEDS: HEPARIN SOD 5,000 UNIT/0.5 ML VIAL SQ SCH ×2 (05:28→15:18)
[2020-01-05] MEDS: PIPERACILLIN/TAZOBACTAM 3.375 GM in DEXTROSE 5% 100 ML IV SCH ×3 (05:32→21:18)
[2020-01-05 06:11] LABS: Albumin Globulin Ratio 0.4 (0.9-2); Albumin Level 1.7 gm/dl (3.4-5.0); BUN Creatinine Ratio 34.9 (10-20); Bilirubin,Total 0.9 mg/dl (0.2-1); Calcium 9.7 mg/dl (8.5-10.1); Creatinine Clr Calc Pharmacy 82.1 ml/min; Est GFR (African American) 114.9; Est GFR (Non-African American) 99.2; Globulin 3.8 gm/dl (2.5-4.0); Potassium 2.8 mmol/L (3.5-5.1); Total Protein 5.5 gm/dl (6.4-8.2)
[2020-01-05] MEDS: MEDICAL MARIJUANA PO SCH ×2 (08:37→21:18)
[2020-01-05] MEDS: FINASTERIDE 5 MG TAB PO SCH (08:37)
[2020-01-05] MEDS: guaiFENesin 600 MG TABCR PO SCH ×2 (08:37→21:18)
[2020-01-05] MEDS: TAMSULOSIN HCL 0.4 MG CAP PO SCH (08:37)
--- NOTE | 2020-01-05 09:33 | Critical Care Progress Note ---
Date of Service January 05, 2020 Assessment & Plan (1) Mass of right lung: CT chest 01/03/2020: Again appreciated is mediastinal lymphadenopathy and station 4R, 10 R, 7. Now there is total obstruction of the RBI leading to collapse of the right lower lobe. There is associated right-sided pleural effusion. The mass seems to be encasing the great vessels. Tree-in-bud opacities peripherally also appreciated in the right middle lobe Compared to the CT chest done 12/02/2019 now there seems to be progression of the RBI obstruction leading to right lower lobe collapse. --Right hilar mass with mediastinal lymphadenopathy In a patient who is a smoker with hypercalcemia This is malignancy until proven otherwise, squamous cell carcinoma high in differential Patient will definitely benefit from EBUS to get the tissue diagnosis --Atelectasis of the right lower lobe This is likely secondary to obstruction of the RBI from the mass This is structural obstruction unfortunately there is not much which can be done here. Keep the patient on the left side --Right-sided pleural effusion Likely secondary to right lobar collapse on top of malignancy I do not think that is causing the patient any distress --COPD Not in exacerbation Continue with inhaled treatment --Hypercalcemia Repeat PTH on 01/04/2020 is low l and PTHRP was 20, this is all secondary to likely malignancy in the lung Recommend IV fluids as well as biphosphonate I will defer management to primary team Plan: Patient is known to me from his previous admission where he came with incidental finding of hilar mass and postobstructive pneumonia. Patient did not have the capacity to make complex decisions like EBUS. Overall prognosis of the patient is very poor given that the RBI obstruction has progressed to total collapse of the right lower lobe. Given the overall poor status I think palliative care consult should be appropriate here. Past point [facility] CAD note from 01/04/2020 reviewed. Patient clearly stated that he did not want a feeding tube or work-up for his hilar mass. Recommend patient to be made only supportive care and change his status to DNR/DNI. No further recommendation from pulmonary perspective. Will sign off. Recall if needed. (2) Abnormal CT scan, chest: Admission and Anticipated Discharge Date Admission Date: January 03, 2020 Subjective Patient seen and examined at bedside. No acute distress. Patient was sleeping. On awakening he denied any complaints. Selectively coughing. Was about to have breakfast. Review of Systems Review of Systems: All systems reviewed & are unremarkable except as noted in HPI & below and Unobtainable due to cognitive status Physical Exam Physical Exam: Constitutional: No acute distress, actively coughing HEENT: EOMI, PERRLA, difficult to comprehend speech Respiratory system: Decreased air entry on the right side, no wheeze, no rhonchi CVS: S1-S2 positive, no murmurs or gallops Abdomen: Soft, nontender, nondistended, positive bowel sounds x4 Extremities: +2 pulses bilaterally radialis/ dorsalis pedis, no cyanosis, no edema Neuro: Oriented to self, awake Psych: Normal mood and affect G/U: No Huang Skin: no rashes, warm and dry Lymphatic: no cervical or axillary lymphadenopathy Results & Data Results & Data ([facility]) Vital Signs (Past 12 Hours) Vital Signs Temp Pulse Resp BP Pulse Ox 01/05/20 07:35 36.3 C L 73 20 94/68 L 93 01/04/20 23:28 36.5 C 87 18 95/64 L 92 01/05/20 04:54 01/05/20 04:54 Coding Level of Care Code 64581 Subseq Hosp Care Lvl 2 Diagnoses Mass of right lung R91.[address] scan, chest R93.89
[2020-01-05] MEDS: POTASSIUM CHLORIDE / WTR 10 MEQ/100 ML PLCT IV SCH ×4 (09:59→13:40)
--- NOTE | 2020-01-05 17:12 | Hospitalist Progress Note ---
Date of Service January 05, 2020 Assessment & Plan (1) Mass of right lung: Per Dr. Mateo Cassidy's notes: Right hilar mass with mediastinal lymphadenopathy (In a patient who is a smoker with hypercalcemia This is malignancy until proven otherwise, squamous cell carcinoma high in differential as per pulmonary doctor Devi) Atelectasis of the right lower lobe Right-sided pleural effusion -CT chest 01/03/2020: Again appreciated is mediastinal lymphadenopathy and station 4R, 10 R, 7. Now there is total obstruction of the RBI leading to collapse of the right lower lobe. There is associated right-sided pleural effusion. The mass seems to be encasing the great vessels. Tree-in-bud opacities peripherally also appreciated in the right middle lobe Compared to the CT chest done 12/02/2019 now there seems to be progression of the RBI obstruction leading to right lower lobe collapse. -as per pulmonary Dr. Quinonez on 01/04/2020: "Patient is known to me from his previous admission where he came with incidental finding of hilar mass and postobstructive pneumonia. Patient did not have the capacity to make complex decisions like EBUS. There is still no clear documentation of who is the POA and can consent for the patient. Overall prognosis of the patient is very poor given that the RBI obstruction has progressed to total collapse of the right lower lobe. Given the overall poor status I think palliative care consult should be appropriate here. Unfortunately unless there is somebody to consent for the patient there is nothing much I can offer except for supportive care." : --Remains comfortable overall however appetite is still very poor, also declining his medications --Continue IV Zosyn for possible component of pneumonia Palliative care service on board, currently assisted facility discussing on positioning patient to hospice service Hypokalemia --Failure to poor oral intake --Declining p.o. medications, replaced with IV potassium -4K riders Repeat potassium this evening Hypercalcemia Per Dr. Mateo Cassidy's notes: -Calcium 11.6, corrected calcium 13.[address] Quinonez "On the previous admission patient PTH was low normal and PTHRP was 20 I think it is a component of primary hyperparathyroidism as well playing a role here. Recommend IV fluids as well as biphosphonate and calcitonin" -however, in my opinion as hospitalist, that there is potential for jaw necrosis with IV bisphosphonates and that patient also has dehydration which can increase serum calcium, will give IV fluids with D5 1/2 normal saline, will increase rate to 100 cc/hr , was given calcitonin 200 SQ BID from admission with stop date on 01/05/2020 -Ionized calcium today 1.4 Continue IV fluids Adult failure to thrive (Severe malnutrition e/b 10.6% loss in Body weight) Per Dr. Mateo Cassidy's notes: -79-year-old male who presents with adult failure to thrive, lung mass, and a 10.6% loss in body weight over the past 3 weeks - As per [facility], the patient lost about 14 pounds in last 3 weeks. He is on pureed diet and thin liquids, but patient is refusing to eat. He seems to has dysphagia, diet as tolerated. IV fluids with dextrose. check serum glucose -Appetite remains poor Plan to transition to home with hospice for palliative care service Dysphagia -Aspiration precautions, comfort feeds -Speech therapy recommendations: Pured diet with nectar thick liquids COPD -Not in exacerbation -Continue with inhaled treatment Intellectual disability Per Dr. Mateo Cassidy's notes: -Ms. Pierre is the patient's gas station operator who works for [employer]. Patients cyanide case hardener is Miss. Trini Sheehan, phone number [phone] who works for [employer]. The patient has no living relatives, no power of corporate associate attorney. Currently he is Full code. Before the last admission, he was fairly high functioning and there were several months of decline before he got admitted last time. He has some garbled speech, but seems to understand him and as per [facility], he refused tube feedings. He is currently bedbound. -Case management and palliative care following in regards to determining who else can be involved in guardian ship and advanced medical decision making Benign prostatic hypertrophy -on tamsulosin and finasteride. Deep venous thrombosis prophylaxis, heparin subQ. Disposition Plan to transition to home with hospice, return to [facility] when accepted Admission and Anticipated Discharge Date Admission Date: January 03, 2020 Subjective Follow-up for weakness, failure to thrive, right lung mass Per RN, patient is declining to eat or take his medications today No acute issues so far per RN Seen sleeping, awakens with loud verbal stimuli Appears weak Patient able to state his full name, able to state he lives in [place] Speech is mostly garbled Denies pain, shortness of breath, nausea Full review of systems difficult to perform as patient is drowsy/weak However patient appears comfortable, not in distress, no signs of pain Review of Systems Review of Systems: All systems reviewed & are unremarkable except as noted in HPI & below Physical Exam Physical Exam: General- oriented x 2, not in distress, speaks in sentences with no effort or accessory muscle use Appears weak, drowsy Head- atraumatic Eyes- PERRL, EOMI, anicteric ENT- oropharynx clear Neck- supple, no JVD, no adenopathy, no thyromegaly; carotids +2/2, no bruits appreciated Lungs- clear to auscultation bilaterally, no rales/wheezes Heart- normal rate, regular rhythm; no murmurs Abdomen- normal bowel sounds, nondistended, soft, nontender, no masses or hepatosplenomegaly Extremities- no pretibial edema, no calf tenderness; peripheral pulses intact Neuro- alert, oriented x 2; full neuro exam difficult to perform due to patient's cognitive status Skin- warm & dry Results & Data Results & Data ([facility]) Vital Signs (Past 12 Hours) Vital Signs Temp Pulse Resp BP Pulse Ox 01/05/20 15:27 36.6 C 73 18 107/68 93 01/05/20 07:35 36.3 C L 73 20 94/68 L 93 Laboratory Results Laboratory Results - last 24 hr 01/04/20 01/04/20 01/05/20 19:41 23:29 04:54 WBC 15.08 H RBC 3.70 L Hgb 11.0 L Hct 34.3 L MCV 92.7 MCH 29.7 MCHC 32.1 RDW Std Deviation 52.7 H RDW Coeff of Robert 15.6 H Plt Count 238 MPV 10.5 H Immature Gran % (Auto) 1.7 Neut % (Auto) 80.7 Lymph % (Auto) 8.8 Barrow % (Auto) 7.2 Eos % (Auto) 1.4 Baso % (Auto) 0.2 Immature Gran # (Auto) 0.25 H Neut # (Auto) 12.18 H Lymph # (Auto) 1.33 Barrow # (Auto) 1.08 H Eos # (Auto) 0.21 Baso # (Auto) 0.03 Sodium Potassium Chloride Carbon Dioxide Anion Gap BUN Creatinine Est Cr Clr Drug Dosing Est GFR ( Amer) Est GFR (Non-Af Amer) BUN/Creatinine Ratio Glucose POC Glucose 138 H 177 H Calcium Ionized Calcium Magnesium Total Bilirubin AST ALT Alkaline Phosphatase Total Protein Albumin Globulin Albumin/Globulin Ratio 01/05/20 01/05/20 01/05/20 04:54 04:54 04:54 WBC RBC Hgb Hct MCV MCH MCHC RDW Std Deviation RDW Coeff of Robert Plt Count MPV Immature Gran % (Auto) Neut % (Auto) Lymph % (Auto) Barrow % (Auto) Eos % (Auto) Baso % (Auto) Immature Gran # (Auto) Neut # (Auto) Lymph # (Auto) Barrow # (Auto) Eos # (Auto) Baso # (Auto) Sodium 145 Potassium 2.8 L D Chloride 112 H Carbon Dioxide 27 Anion Gap 6.0 BUN 19 H Creatinine 0.54 L Est Cr Clr Drug Dosing 82.1 Est GFR ( Amer) 114.9 Est GFR (Non-Af Amer) 99.2 BUN/Creatinine Ratio 34.9 H Glucose 164 H POC Glucose Calcium 9.7 D Ionized Calcium 1.42 H Magnesium 1.9 Total Bilirubin 0.9 AST 10 L ALT 9 L Alkaline Phosphatase 102 Total Protein 5.5 L Albumin 1.7 L Globulin 3.8 Albumin/Globulin Ratio 0.4 L 01/05/20 01/05/20 08:18 16:58 WBC RBC Hgb Hct MCV MCH MCHC RDW Std Deviation RDW Coeff of Robert Plt Count MPV Immature Gran % (Auto) Neut % (Auto) Lymph % (Auto) Barrow % (Auto) Eos % (Auto) Baso % (Auto) Immature Gran # (Auto) Neut # (Auto) Lymph # (Auto) Barrow # (Auto) Eos # (Auto) Baso # (Auto) Sodium Potassium Chloride Carbon Dioxide Anion Gap BUN Creatinine Est Cr Clr Drug Dosing Est GFR ( Amer) Est GFR (Non-Af Amer) BUN/Creatinine Ratio Glucose POC Glucose 181 H 133 H Calcium Ionized Calcium Magnesium Total Bilirubin AST ALT Alkaline Phosphatase Total Protein Albumin Globulin Albumin/Globulin Ratio
[2020-01-06] MEDS: D5W AND 1/2NSS 1,000 ML IV SCH ×3 (00:44→19:59)
[2020-01-06] MEDS: PIPERACILLIN/TAZOBACTAM 3.375 GM in DEXTROSE 5% 100 ML IV SCH ×3 (06:17→21:55)
[2020-01-06] MEDS: FINASTERIDE 5 MG TAB PO SCH (08:06)
[2020-01-06] MEDS: MEDICAL MARIJUANA PO SCH ×2 (08:06→20:08)
[2020-01-06] MEDS: TAMSULOSIN HCL 0.4 MG CAP PO SCH (08:06)
[2020-01-06] MEDS: guaiFENesin 600 MG TABCR PO SCH ×2 (08:07→20:08)
[2020-01-06] MEDS: HEPARIN SOD 5,000 UNIT/0.5 ML VIAL SQ SCH ×2 (08:37→20:05)
--- NOTE | 2020-01-06 15:34 | Palliative Care Progress Note ---
Date of Service January 06, 2020 Assessment & Plan (1) Palliative care encounter: Pt is an 79 yo male known to our service when last seen on 12/08 during his prior hospitalization. His PMH is significant for intellectual disability, COPD, BPH, dyslipidemia, and right hilar lung mass for which he has refused biopsy or further work-up. Patient has also refused feeding tube placement. During his last admission was able to meet with the patient along with his lung time caregiver Ms. Pierre as she understands his mumbled speech. Patient presented to the ED on 01/02 from the [facility] where he has been since his discharge in November. Patient has had poor p.o. intake, refusing to eat at times, with a reported 14 pound weight loss. Patient has a caregiver/playground attendant, Gabby, through [facility] services, as well as a case worker, Trini SheehanHvyjopm-[phone]. On his admission in November, CT scan showed neoplastic invasion of the right mainstem bronchus and bronchus intermedius resulting in bronchial obstruction and postobstructive mucous plugging. 3. 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 Patient seen and examined, no acute distress. Patient not wanting to eat, has been refusing p.o. meds for the past 2 days. Patient's case management, Trini Sheehan, contacted her abattoir supervisor regarding plan of care for Mr. Rocha. If 2 physicians agree that resuscitation is not indicated given his current terminal illness and that hospice care is appropriate for his prior stated goals-we can make those changes. To his CODE STATUS and advance with plan of care with hospice. Agree that with patient's prior stated wishes, current condition that placement back at the [facility] with hospice care would be appropriate with comfort feeds (2) Adult failure to thrive: Patient refusing to eat, denies hunger, likely due to neoplasm in the right lung. Patient has adamantly refused feeding tube on prior admissions (3) Dysphasia: Aspiration precautions, comfort feeds (4) Mass of hilum: Patient has refused further work-up or treatment (5) Intellectual disability: Mild-able to make his wishes and needs known Subjective Patient did not arouse on exam, patient was comfortable breathing even and unlabored Please refer to progress note dated 01/03. nursing manager for Mr. Katz is Trini [phone]. Ms. Sheehan spoke with her abattoir supervisor -given that patient has no family and no named healthcare surrogate we are able to change his CODE STATUS and make a hospice referral with 2 physicians agreeing that this is consistent with his prior stated wishes and is appropriate care for him at this time given his right hilar lung mass-refusing biopsy or any further treatment. Patient is known to me from his prior admission in November when I was able to meet with patient and his primary caregiver Ms. Pierre. Patient had adamantly refused further work-up of his lung mass and adamantly refused a surgical feeding tube. At that time patient's goals were to remain comfortable. Collaborated with attending physician Dr Katz -given his prior stated wishes full resuscitation is not in line with his goals of comfort, is not appropriate treatment in a patient with end-stage cancer who refuses any further work-up or treatment. Patient has been refusing his oral medications for the past 2 days. CODE STATUS-DO NOT RESUSCITATE is appropriate, will make a hospice referral so that he can return to the [facility] and be on comfort care. . Review of Systems Review of Systems: Unobtainable due to cognitive status Physical Exam Physical Exam: PE: Patient appears comfortable, NAD HEENT: Dry mucous membranes Respirations: Clear breath sounds, unlabored, on room air with adequate sats CV: Regular rate, no edema Abdomen: Soft, no grimace with palpation Neuro: Did not respond to voice or touch-he has had short periods in the past when he does not want to engage in further conversation. Results & Data Vital Signs (Past 12 Hours) Vital Signs Temp Pulse Resp BP Pulse Ox 01/06/20 15:13 97.7 F 71 18 112/73 96 01/06/20 07:28 97.3 F L 66 18 106/75 96 PG Care Time/CCT Total # of Minutes Spent Total Time Spent with Patient: Total time spent 35 minutes with greater than 50% of the time spent at bedside assessing patient's current level of comfort and collaborating with case management as well as attending physician. Is greater than 50% in coordination of care (as documented) at patient's floor/unit and/or counseling patient: Coding Level of Care Code 12965 Subseq Hosp Care Lvl 3 Diagnoses Palliative care encounter Z51.5 Adult failure to thrive R62.7 Dysphasia R47.02 Mass of hilum R91.8 Intellectual disability F79 Time Spent (min) 35
--- NOTE | 2020-01-06 19:09 | Hospitalist Progress Note ---
Date of Service January 06, 2020 Assessment & Plan (1) Mass of right lung: Per Dr. Mateo Cassidy's notes: Right hilar mass with mediastinal lymphadenopathy (In a patient who is a smoker with hypercalcemia This is malignancy until proven otherwise, squamous cell carcinoma high in differential as per pulmonary doctor Devi) Atelectasis of the right lower lobe Right-sided pleural effusion -CT chest 01/03/2020: Again appreciated is mediastinal lymphadenopathy and station 4R, 10 R, 7. Now there is total obstruction of the RBI leading to collapse of the right lower lobe. There is associated right-sided pleural effusion. The mass seems to be encasing the great vessels. Tree-in-bud opacities peripherally also appreciated in the right middle lobe Compared to the CT chest done 12/02/2019 now there seems to be progression of the RBI obstruction leading to right lower lobe collapse. -as per pulmonary Dr. Quinonez on 01/04/2020: "Patient is known to me from his previous admission where he came with incidental finding of hilar mass and postobstructive pneumonia. Patient did not have the capacity to make complex decisions like EBUS. There is still no clear documentation of who is the POA and can consent for the patient. Overall prognosis of the patient is very poor given that the RBI obstruction has progressed to total collapse of the right lower lobe. Given the overall poor status I think palliative care consult should be appropriate here. Unfortunately unless there is somebody to consent for the patient there is nothing much I can offer except for supportive care." January 06, 2020 --Patient mostly sleeping today, but remains comfortable overall Still with very poor appetite, declining medications --Continue IV Zosyn for possible component of pneumonia Palliative care service on board, discussed with Dr. Roldan I believe that the patient has a terminal illness, and is continuing to decline due to poor appetite and dysphagia, in line With patient's wishes when he was more coherent-no further work-up or bronchoscopy for his lung mass, no feeding tube, I believe that transitioning to a DNR status and transitioning patient to home with hospice would be the most appropriate medical decision for this patient at this time --Referral to home with hospice services made today care of case management Hypokalemia --Failure to poor oral intake --Declining p.o. medications, replaced with IV potassium -4K riders Monitor potassium Hypercalcemia Per Dr. Mateo Cassidy's notes: -Calcium 11.6, corrected calcium 13.[address] Quinonez "On the previous admission patient PTH was low normal and PTHRP was 20 I think it is a component of primary hyperparathyroidism as well playing a role here. Recommend IV fluids as well as biphosphonate and calcitonin" -however, in my opinion as hospitalist, that there is potential for jaw necrosis with IV bisphosphonates and that patient also has dehydration which can increase serum calcium, will give IV fluids with D5 1/2 normal saline, will increase rate to 100 cc/hr , was given calcitonin 200 SQ BID from admission with stop date on 01/05/2020 January 06, 2020 Monitor calcium Adult failure to thrive (Severe malnutrition e/b 10.6% loss in Body weight) Per Dr. Mateo Cassidy's notes: -79-year-old male who presents with adult failure to thrive, lung mass, and a 10.6% loss in body weight over the past 3 weeks - As per [facility], the patient lost about 14 pounds in last 3 weeks. He is on pureed diet and thin liquids, but patient is refusing to eat. He seems to has dysphagia, diet as tolerated. IV fluids with dextrose. check serum glucose -Appetite remains poor Plan to transition to home with hospice for palliative care service Dysphagia -Aspiration precautions, comfort feeds -Speech therapy recommendations: Pured diet with nectar thick liquids COPD -Not in exacerbation -Continue with inhaled treatment Intellectual disability Per Dr. Mateo Cassidy's notes: -Ms. Pierre is the patient's uat tester who works for [employer]. Patients field nurse case manager is Miss. Trini Sheehan, phone number [phone] who works for [employer]. The patient has no living relatives, no power of united [place] attorney. Currently he is Full code. Before the last admission, he was fairly high functioning and there were several months of decline before he got admitted last time. He has some garbled speech, but seems to understand him and as per [facility], he refused tube feedings. He is currently bedbound. -Case management and palliative care following in regards to determining who else can be involved in guardian ship and advanced medical decision making Benign prostatic hypertrophy -on tamsulosin and finasteride. Deep venous thrombosis prophylaxis, heparin subQ. Disposition Plan to transition to home with hospice, return to [facility] when accepted Admission and Anticipated Discharge Date Admission Date: January 03, 2020 Subjective Follow-up for weakness, failure to thrive, right lung mass Patient remains with poor appetite, declining medications Seen at the bedside, sleeping but difficult to awaken Keeps eyelids tightly closed When tried to raise his hand he kept it in upright position Per RN, the patient only took a few bites for meal today Noted to be incontinent of urine No other signs or symptoms noted Review of Systems Review of Systems: All systems reviewed & are unremarkable except as noted in HPI & below Physical Exam Physical Exam: General-sleeping, not in distress, breathing with no effort or accessory muscle use Eyes- anicteric Neck- no JVD Lungs-mild in the right base, clear on the left, no wheezing, good air entry bilaterally Heart- normal rate, regular rhythm; no murmurs Abdomen- normal bowel sounds, nondistended, soft, nontender Extremities- no pretibial edema, no calf tenderness Neuro-patient lethargic Skin- warm & dry Results & Data Results & Data ([facility]) Vital Signs (Past 12 Hours) Vital Signs Temp Pulse Resp BP Pulse Ox 01/06/20 15:13 36.5 C 71 18 112/73 96 01/06/20 07:28 36.3 C L 66 18 106/75 96
[2020-01-06 19:57] LABS: BUN Creatinine Ratio 12.9 (10-20); Calcium 9.4 mg/dl (8.5-10.1); Creatinine Clr Calc Pharmacy 88.7 ml/min; Est GFR (African American) 118.6; Est GFR (Non-African American) 102.4
[2020-01-06] MEDS: POTASSIUM CHLORIDE / WTR 10 MEQ/100 ML PLCT IV SCH ×3 (21:55→23:57)
[2020-01-07] MEDS: POTASSIUM CHLORIDE / WTR 10 MEQ/100 ML PLCT IV SCH ×5 (01:09→23:16)
[2020-01-07] MEDS: D5W AND 1/2NSS 1,000 ML IV SCH ×3 (04:12→23:16)
[2020-01-07] MEDS: PIPERACILLIN/TAZOBACTAM 3.375 GM in DEXTROSE 5% 100 ML IV SCH ×3 (05:32→21:56)
[2020-01-07 07:20] LABS: Creatinine Clr Calc Pharmacy 98.5 ml/min; Est GFR (African American) 123.9; Est GFR (Non-African American) 106.9
[2020-01-07] MEDS: FINASTERIDE 5 MG TAB PO SCH (08:02)
[2020-01-07] MEDS: TAMSULOSIN HCL 0.4 MG CAP PO SCH (08:02)
[2020-01-07] MEDS: HEPARIN SOD 5,000 UNIT/0.5 ML VIAL SQ SCH ×2 (10:05→20:31)
[2020-01-07] MEDS: MEDICAL MARIJUANA PO SCH ×2 (10:06→20:29)
[2020-01-07] MEDS: guaiFENesin 600 MG TABCR PO SCH ×2 (10:09→20:29)
--- NOTE | 2020-01-07 19:47 | Hospitalist Progress Note ---
Date of Service January 07, 2020 Assessment & Plan (1) Mass of right lung: Per Dr. Mateo Cassidy's notes: Right hilar mass with mediastinal lymphadenopathy (In a patient who is a smoker with hypercalcemia This is malignancy until proven otherwise, squamous cell carcinoma high in differential as per pulmonary doctor Devi) Atelectasis of the right lower lobe Right-sided pleural effusion -CT chest 01/03/2020: Again appreciated is mediastinal lymphadenopathy and station 4R, 10 R, 7. Now there is total obstruction of the RBI leading to collapse of the right lower lobe. There is associated right-sided pleural effusion. The mass seems to be encasing the great vessels. Tree-in-bud opacities peripherally also appreciated in the right middle lobe Compared to the CT chest done 12/02/2019 now there seems to be progression of the RBI obstruction leading to right lower lobe collapse. -as per pulmonary Dr. Quinonez on 01/04/2020: "Patient is known to me from his previous admission where he came with incidental finding of hilar mass and postobstructive pneumonia. Patient did not have the capacity to make complex decisions like EBUS. There is still no clear documentation of who is the POA and can consent for the patient. Overall prognosis of the patient is very poor given that the RBI obstruction has progressed to total collapse of the right lower lobe. Given the overall poor status I think palliative care consult should be appropriate here. Unfortunately unless there is somebody to consent for the patient there is nothing much I can offer except for supportive care." January 07, 2020 --Still mostly sleeping, comfortable, no acute issues Still with very poor appetite, declining medications --Continue IV Zosyn for possible component of pneumonia Palliative care service on board, discussed with Dr. Roldan I believe that the patient has a terminal illness, and is continuing to decline due to poor appetite and dysphagia, in line With patient's wishes when he was more coherent-no further work-up or bronchoscopy for his lung mass, no feeding tube, I believe that transitioning to a DNR status and transitioning patient to home with hospice would be the most appropriate medical decision for this patient at this time --Referral to home with hospice services made care of case management, awaiting acceptance Hypokalemia --Failure to poor oral intake --Declining p.o. medications, replaced with IV potassium -4K riders Monitor potassium Hypercalcemia Per Dr. Mateo Cassidy's notes: -Calcium 11.6, corrected calcium 13.[address] Quinonez "On the previous admission patient PTH was low normal and PTHRP was 20 I think it is a component of primary hyperparathyroidism as well playing a role here. Recommend IV fluids as well as biphosphonate and calcitonin" -however, in my opinion as hospitalist, that there is potential for jaw necrosis with IV bisphosphonates and that patient also has dehydration which can increase serum calcium, will give IV fluids with D5 1/2 normal saline, will increase rate to 100 cc/hr , was given calcitonin 200 SQ BID from admission with stop date on 01/05/2020 Calcium stable Adult failure to thrive (Severe malnutrition e/b 10.6% loss in Body weight) Per Dr. Mateo Cassidy's notes: -79-year-old male who presents with adult failure to thrive, lung mass, and a 10.6% loss in body weight over the past 3 weeks - [facility] per [facility], the patient lost about 14 pounds in last 3 weeks. He is on pureed diet and thin liquids, but patient is refusing to eat. He seems to has dysphagia, diet as tolerated. IV fluids with dextrose. check serum glucose -Appetite remains poor Plan to transition to home with hospice for palliative care service Dysphagia -Aspiration precautions, comfort feeds -Speech therapy recommendations: Pured diet with nectar thick liquids COPD -Not in exacerbation -Continue with inhaled treatment Intellectual disability Per Dr. Mateo Cassidy's notes: -Ms. Pierre is the patient's electronics instructor who works for [employer]. Patients case assembler is Miss. Trini Sheehan, phone number [phone] who works for [employer]. The patient has no living relatives, no power of securities attorney. Currently he is Full code. Before the last admission, he was fairly high functioning and there were several months of decline before he got admitted last time. He has some garbled speech, but seems to understand him and as per [facility], he refused tube feedings. He is currently bedbound. -Case management and palliative care following in regards to determining who else can be involved in guardian ship and advanced medical decision making Benign prostatic hypertrophy -on tamsulosin and finasteride. Deep venous thrombosis prophylaxis, heparin subQ. Disposition Plan to transition to home with hospice, return to [facility] when accepted Admission and Anticipated Discharge Date Admission Date: January 03, 2020 Subjective Follow-up for right lung mass, weakness, failure to thrive, poor appetite Discussed with RONAL Menendez, patient mostly sleeping throughout the day, declining food or medications No signs of pain or distress No other symptoms or signs noted Review of Systems Review of Systems: All systems reviewed & are unremarkable except as noted in HPI & below Physical Exam Physical Exam: General-lethargic, breathing with no effort or accessory muscle use Eyes- anicteric Neck- no JVD Lungs-mild rhonchi on the right, clear on the left, no wheezing Heart- normal rate, regular rhythm; no murmurs Abdomen- normal bowel sounds, nondistended, soft, nontender Extremities- no pretibial edema, no calf tenderness Neuro-lethargic Skin- warm & dry Results & Data Results & Data ([facility]) Laboratory Results Laboratory Results - last 24 hr 01/06/20 01/06/20 01/06/20 19:14 20:57 23:06 Sodium 137 D Potassium 3.0 L D Chloride 104 Carbon Dioxide 25 Anion Gap 8.0 BUN 7 D Creatinine 0.50 L Est Cr Clr Drug Dosing 88.7 Est GFR ( Amer) 118.6 Est GFR (Non-Af Amer) 102.4 BUN/Creatinine Ratio 12.9 Glucose 127 H POC Glucose 130 H 138 H Calcium 9.4 COVID-19 PCR 01/06/20 01/07/20 01/07/20 Unknown 06:39 06:43 Sodium Potassium 3.2 L Chloride Carbon Dioxide Anion Gap BUN Creatinine 0.45 L Est Cr Clr Drug Dosing 98.5 Est GFR ( Amer) 123.9 Est GFR (Non-Af Amer) 106.9 BUN/Creatinine Ratio Glucose POC Glucose Calcium COVID-19 PCR NEGATIVE 01/07/20 06:56 Sodium Potassium Chloride Carbon Dioxide Anion Gap BUN Creatinine Est Cr Clr Drug Dosing Est GFR ( Amer) Est GFR (Non-Af Amer) BUN/Creatinine Ratio Glucose POC Glucose 147 H Calcium COVID-19 PCR
[2020-01-08] MEDS: PIPERACILLIN/TAZOBACTAM 3.375 GM in DEXTROSE 5% 100 ML IV SCH ×3 (06:10→22:44)
[2020-01-08] MEDS: D5W AND 1/2NSS 1,000 ML IV SCH ×2 (07:57→18:15)
[2020-01-08] MEDS: guaiFENesin 600 MG TABCR PO SCH ×2 (09:55→20:36)
[2020-01-08] MEDS: HEPARIN SOD 5,000 UNIT/0.5 ML VIAL SQ SCH ×2 (09:55→20:36)
[2020-01-08] MEDS: TAMSULOSIN HCL 0.4 MG CAP PO SCH (09:55)
[2020-01-08] MEDS: FINASTERIDE 5 MG TAB PO SCH (09:55)
[2020-01-08] MEDS: MEDICAL MARIJUANA PO SCH ×2 (09:55→20:36)
[2020-01-08 10:17] LABS: BUN Creatinine Ratio 7.7 (10-20); Calcium 9.9 mg/dl (8.5-10.1); Creatinine Clr Calc Pharmacy 100.8 ml/min; Est GFR (Non-African American) 107.9; Magnesium 1.4 mg/dl (1.8-2.4)
[2020-01-08] MEDS: POTASSIUM CHLORIDE / WTR 10 MEQ/100 ML PLCT IV SCH ×4 (14:23→18:13)
[2020-01-08] MEDS: MAGNESIUM SULFATE / D5W 1 GM/100 ML BAG IV SCH ×2 (14:23→16:27)
--- NOTE | 2020-01-08 19:39 | Hospitalist Progress Note ---
Date of Service January 08, 2020 Assessment & Plan (1) Mass of right lung: Per Dr. Mateo Cassidy's notes: Right hilar mass with mediastinal lymphadenopathy (In a patient who is a smoker with hypercalcemia This is malignancy until proven otherwise, squamous cell carcinoma high in differential as per pulmonary doctor Devi) Atelectasis of the right lower lobe Right-sided pleural effusion -CT chest 01/03/2020: Again appreciated is mediastinal lymphadenopathy and station 4R, 10 R, 7. Now there is total obstruction of the RBI leading to collapse of the right lower lobe. There is associated right-sided pleural effusion. The mass seems to be encasing the great vessels. Tree-in-bud opacities peripherally also appreciated in the right middle lobe Compared to the CT chest done 12/02/2019 now there seems to be progression of the RBI obstruction leading to right lower lobe collapse. -as per pulmonary Dr. Quinonez on 01/04/2020: "Patient is known to me from his previous admission where he came with incidental finding of hilar mass and postobstructive pneumonia. Patient did not have the capacity to make complex decisions like EBUS. There is still no clear documentation of who is the POA and can consent for the patient. Overall prognosis of the patient is very poor given that the RBI obstruction has progressed to total collapse of the right lower lobe. Given the overall poor status I think palliative care consult should be appropriate here. Unfortunately unless there is somebody to consent for the patient there is nothing much I can offer except for supportive care." January 08, 2020 Comfortable, no signs of pain or respiratory distress --Continue IV Zosyn for possible component of pneumonia Continue repletion of potassium and magnesium Palliative care service on board, discussed with Dr. Roldan I believe that the patient has a terminal illness, and is continuing to decli ne due to poor appetite and dysphagia, in line With patient's wishes when he was more coherent-no further work-up or bronchoscopy for his lung mass, no feeding tube, I believe that transitioning to a DNR status and transitioning patient to home with hospice would be the most appropriate medical decision for this patient at this time --Referral to home with hospice services made care of case management, awaiting acceptance Hypokalemia --Failure to poor oral intake --Declining p.o. medications, replaced with IV potassium -4K riders Monitor potassium Hypercalcemia Per Dr. Mateo Cassidy's notes: -Calcium 11.6, corrected calcium 13.[address] Quinonez "On the previous admission patient PTH was low normal and PTHRP was 20 I think it is a component of primary hyperparathyroidism as well playing a role here. Recommend IV fluids as well as biphosphonate and calcitonin" -however, in my opinion as hospitalist, that there is potential for jaw necrosis with IV bisphosphonates and that patient also has dehydration which can increase serum calcium, will give IV fluids with D5 1/2 normal saline, will increase rate to 100 cc/hr , was given calcitonin 200 SQ BID from admission with stop date on 01/05/2020 Calcium stable Adult failure to thrive (Severe malnutrition e/b 10.6% loss in Body weight) Per Dr. Mateo Cassidy's notes: -79-year-old male who presents with adult failure to thrive, lung mass, and a 10.6% loss in body weight over the past 3 weeks - As per [facility], the patient lost about 14 pounds in last 3 weeks. He is on pureed diet and thin liquids, but patient is refusing to eat. He seems to has dysphagia, diet as tolerated. IV fluids with dextrose. check serum glucose -Appetite remains poor Plan to transition to home with hospice for palliative care service Dysphagia -Aspiration precautions, comfort feeds -Speech therapy recommendations: Pured diet with nectar thick liquids COPD -Not in exacerbation -Continue with inhaled treatment Intellectual disability Per Dr. Mateo Cassidy's notes: -Ms. Pierre is the patient's commercial reporter who works for [employer]. Patients watch case polisher is Miss. Trini Sheehan, phone number [phone] who works for [employer]. The patient has no living relatives, no power of attorney general. Currently he is Full code. Before the last admission, he was fairly high functioning and there were several months of decline before he got admitted last time. He has some garbled speech, but seems to understand him and as per [facility], he refused tube feedings. He is currently bedbound. -Case management and palliative care following in regards to determining who else can be involved in guardian ship and advanced medical decision making Benign prostatic hypertrophy -on tamsulosin and finasteride. Deep venous thrombosis prophylaxis, heparin subQ. Disposition Plan to transition to home with hospice, return to [facility] when accepted Admission and Anticipated Discharge Date Admission Date: January 03, 2020 Subjective Follow-up for right lung mass, weakness, poor appetite Discussed with RN Gemma Patient mostly sleeping today, did not have meals, declines medications Seen sleeping, very drowsy, wincing his eyes with stimulation Not in distress, no signs of pain, comfortable appearing Review of Systems Review of Systems: All systems reviewed & are unremarkable except as noted in HPI & below Physical Exam Physical Exam: General-drowsy, breathing with no effort or accessory muscle use Eyes- anicteric Neck- no JVD Lungs-mild rales at the right base, no wheezing Heart- normal rate, regular rhythm; no murmurs Abdomen- normal bowel sounds, nondistended, soft, nontender Extremities- no pretibial edema, no calf tenderness Neuro-drowsy Skin- warm & dry Results & Data Results & Data ([facility]) Vital Signs (Past 12 Hours) Vital Signs Temp Pulse Resp BP Pulse Ox 01/08/20 15:18 36.5 C 79 18 122/74 96 Laboratory Results Laboratory Results - last 24 hr 01/07/20 01/07/20 01/08/20 17:25 23:13 09:33 Sodium 135 L Potassium 3.0 L Chloride 103 Carbon Dioxide 26 Anion Gap 6.0 BUN 3 L Creatinine 0.44 L Est Cr Clr Drug Dosing 100.8 Est GFR ( Amer) 125.0 Est GFR (Non-Af Amer) 107.9 BUN/Creatinine Ratio 7.7 L Glucose 138 H POC Glucose 152 H 139 H Calcium 9.9 Magnesium 1.4 L 01/08/20 01/08/20 13:42 16:56 Sodium Potassium Chloride Carbon Dioxide Anion Gap BUN Creatinine Est Cr Clr Drug Dosing Est GFR ( Amer) Est GFR (Non-Af Amer) BUN/Creatinine Ratio Glucose POC Glucose 139 H 139 H Calcium Magnesium
[2020-01-09] MEDS: PIPERACILLIN/TAZOBACTAM 3.375 GM in DEXTROSE 5% 100 ML IV SCH ×3 (05:58→22:51)
[2020-01-09] MEDS: D5W AND 1/2NSS 1,000 ML IV SCH ×2 (05:58→20:17)
[2020-01-09 06:54] LABS: Creatinine Clr Calc Pharmacy 113.7 ml/min; Est GFR (African American) 131.4; Est GFR (Non-African American) 113.4
[2020-01-09 08:13] LABS: BUN Creatinine Ratio 8.6 (10-20); Calcium 9.4 mg/dl (8.5-10.1); Creatinine Clr Calc Pharmacy 123.1 ml/min; Est GFR (African American) 135.8; Est GFR (Non-African American) 117.1; Magnesium 1.9 mg/dl (1.8-2.4)
[2020-01-09] MEDS: MEDICAL MARIJUANA PO SCH ×2 (09:48→20:53)
[2020-01-09] MEDS: TAMSULOSIN HCL 0.4 MG CAP PO SCH (09:48)
[2020-01-09] MEDS: FINASTERIDE 5 MG TAB PO SCH (09:48)
[2020-01-09] MEDS: HEPARIN SOD 5,000 UNIT/0.5 ML VIAL SQ SCH ×2 (09:49→20:52)
[2020-01-09] MEDS: guaiFENesin 600 MG TABCR PO SCH ×2 (09:49→20:53)
[2020-01-09] MEDS: POTASSIUM CHLORIDE / WTR 10 MEQ/100 ML PLCT IV SCH ×4 (18:57→21:50)
[2020-01-10] MEDS: PIPERACILLIN/TAZOBACTAM 3.375 GM in DEXTROSE 5% 100 ML IV SCH (05:47)
[2020-01-10] MEDS: FINASTERIDE 5 MG TAB PO SCH (09:33)
[2020-01-10] MEDS: TAMSULOSIN HCL 0.4 MG CAP PO SCH (09:33)
[2020-01-10] MEDS: HEPARIN SOD 5,000 UNIT/0.5 ML VIAL SQ SCH (09:34)
[2020-01-10] MEDS: MEDICAL MARIJUANA PO SCH (09:34)
[2020-01-10] MEDS: guaiFENesin 600 MG TABCR PO SCH (09:34)
--- NOTE | 2020-01-10 14:45 | Hospitalist Progress Note ---
Date of Service January 10, 2020 Assessment & Plan (1) Mass of right lung: Per Dr. Mateo Cassidy's notes: Right hilar mass with mediastinal lymphadenopathy (In a patient who is a smoker with hypercalcemia This is malignancy until proven otherwise, squamous cell carcinoma high in differential as per pulmonary doctor Devi) Atelectasis of the right lower lobe Right-sided pleural effusion -CT chest 01/03/2020: Again appreciated is mediastinal lymphadenopathy and station 4R, 10 R, 7. Now there is total obstruction of the RBI leading to collapse of the right lower lobe. There is associated right-sided pleural effusion. The mass seems to be encasing the great vessels. Tree-in-bud opacities peripherally also appreciated in the right middle lobe Compared to the CT chest done 12/02/2019 now there seems to be progression of the RBI obstruction leading to right lower lobe collapse. -as per pulmonary Dr. Quinonez on 01/04/2020: "Patient is known to me from his previous admission where he came with incidental finding of hilar mass and postobstructive pneumonia. Patient did not have the capacity to make complex decisions like EBUS. There is still no clear documentation of who is the POA and can consent for the patient. Overall prognosis of the patient is very poor given that the RBI obstruction has progressed to total collapse of the right lower lobe. Given the overall poor status I think palliative care consult should be appropriate here. Unfortunately unless there is somebody to consent for the patient there is nothing much I can offer except for supportive care." January 10, 2020 --Remains comfortable, not in pain or respiratory distress Caregiver at bedside, agrees --Has received IV Zosyn for possible component of pneumonia Continue repletion of potassium and magnesium Palliative care service on board, discussed with Dr. Roldan I believe that the patient has a terminal illness, and is continuing to decline due to poor appetite and dysphagia, in line With patient's wishes when he was more coherent-no further work-up or bronchoscopy for his lung mass, no feeding tube, I believe that transitioning to a DNR status and transitioning patient to home with hospice would be the most appropriate medical decision for this patient at this time --Referral to home with hospice services made care of case management, accepted to return to [facility] today Hypokalemia --Failure to poor oral intake --Declining p.o. medications, replaced with IV potassium Hypercalcemia Per Dr. Mateo Cassidy's notes: -Calcium 11.6, corrected calcium 13.[address] Quinonez "On the previous admission patient PTH was low normal and PTHRP was 20 I think it is a component of primary hyperparathyroidism as well playing a role here. Recommend IV fluids as well as biphosphonate and calcitonin" -however, in my opinion as hospitalist, that there is potential for jaw necrosis with IV bisphosphonates and that patient also has dehydration which can increase serum calcium, will give IV fluids with D5 1/2 normal saline, will increase rate to 100 cc/hr , was given calcitonin 200 SQ BID from admission with stop date on 01/05/2020 - Calcium stable Adult failure to thrive (Severe malnutrition e/b 10.6% loss in Body weight) Per Dr. Mateo Cassidy's notes: -79-year-old male who presents with adult failure to thrive, lung mass, and a 10.6% loss in body weight over the past 3 weeks - As per [facility], the patient lost about 14 pounds in last 3 weeks. He is on pureed diet and thin liquids, but patient is refusing to eat. He seems to has dysphagia, diet as tolerated. IV fluids with dextrose. check serum glucose - Appetite remains poor transition to home with hospice Dysphagia -Aspiration precautions, comfort feeds -Speech therapy recommendations: Pured diet with nectar thick liquids Aspiration precautions COPD -Not in exacerbation -Continue with inhaled treatment Intellectual disability Per Dr. Mateo Cassidy's notes: -Ms. Pierre is the patient's criminal justice department chair who works for [employer]. Patients rn case manager hospice is Miss. Trini Sheehan, phone number [phone] who w [facility] for [facility]. The patient has no living relatives, no power of attorney general. Currently he is Full code. Before the last admission, he was fairly high functioning and there were several months of decline before he got admitted last time. He has some garbled speech, but seems to understand him and as per [facility], he refused tube feedings. He is currently bedbound. Benign prostatic hypertrophy -on tamsulosin and finasteride. Deep venous thrombosis prophylaxis, heparin subQ given Disposition transition to home with hospice, return to [facility] Admission and Anticipated Discharge Date Admission Date: January 03, 2020 Subjective Follow-up for right lung mass, weakness, poor appetite, failure to thrive Seen with him healthcare receptionist Gabby at the bedside, she is helping clarify what the patient is saying Patient is awake, alert, more conversant Feels fine overall Denies shortness of breath, or any pain Repeatedly says that he is not interested to eat Comfortable overall Gabby agrees that the patient has been comfortable while admitted Review of Systems Review of Systems: All systems reviewed & are unremarkable except as noted in HPI & below Physical Exam Physical Exam: General- oriented x 2, not in distress, speaks in sentences with no effort or accessory muscle use Appears weak Eyes- anicteric Neck- no JVD Lungs- clear breath sounds bilaterally, no rales/wheezes Heart- normal rate, regular rhythm; no murmurs Abdomen- normal bowel sounds, nondistended, soft, nontender Extremities- no pretibial edema, no calf tenderness Neuro- alert, oriented x 2; no gross focal neurologic deficits Skin- warm & dry Results & Data Results & Data ([facility]) Vital Signs (Past 12 Hours) Vital Signs Temp Pulse Resp BP Pulse Ox 01/10/20 07:27 36.3 C L 80 19 100/62 95 Laboratory Results Laboratory Results - last 24 hr 01/09/20 01/09/20 01/10/20 17:02 23:58 12:13 POC Glucose 119 H 116 H 122 H
--- NOTE | 2020-01-10 14:57 | Discharge Summary ---
Date of Service January 10, 2020 Admission HPI Per Admitting Provider HISTORY OF PRESENT ILLNESS: This is an 79-year-old male with past medical history significant for intellectual disability, COPD, BPH, hyperlipidemia, who was recently admitted to the hospital on 12/02/2019 with complaint of fall and discharged on 12/15/2019 to [facility]. At that time, he was found to have sepsis, postobstructive pneumonia and mass of the right lung,and hypercalcemia.Last admission he found lying on the floor for some time, so there was also some rhabdomyolysis and COVID-[address] chest showed right hilar mass with extensive involvement of the right lower and middle lobes. Pulmonary was consulted and recommended bronchoscopy. For hypercalcemia, received IV fluids and calcitonin. Once he was improved, the patient was evaluated for bronchoscopy. The patient has some articulation issues and intellectual disability. There is question of capacity to make decisions regarding endobronchial biopsy. Case management contacted long-term healthcare provider of this patient, Ms. Pierre, who can understand him and translate his wishes. Finally, it was felt that it was clear the patient does not want any biopsy and does not want any treatment for his lung mass, which he understands is likely malignant and a more palliative approach was decided and he was discharged to [facility]. As per [facility], since he got there, since last 3 weeks he lost about 14 pounds. He is not eating, poor appetite,. The patient is currently on pureed diet and thin liquids, but the patient is afraid of aspiration,and is not eating. He has garbled speech, but his caregiver can understand him well. She sometimes comes to see him to [facility]. They also asked him about tube feeding, which the patient refused as per the [facility]. There was no fever or chills, no complaints of any pain. He has loose stools since last week because he is mostly on liquid diet. He occasionally coughs when he is taking liquids, no fevers. He is bed bound. Because of his failure to thrive and not eating, he was sent here. The patient is still full code. Currently, the patient has some garbled speech. He says he is fine. He says he has no pain. Hemodynamics are stable. Alert and awake. Could not get any history from the patient. Admission Exam Per Admitting Provider GENERAL: The patient is old and frail, not in acute distress. VITAL SIGNS: Temperature 36.6, pulse 89, respiratory rate 16, blood pressure 109/67, oxygen 95% on room air. HEENT: No pallor, no icterus. Pupils equal, round, and reactive to light. NECK: No neck masses. No JVD observed. CARDIOVASCULAR: S1, S2 heard. Regular rate and rhythm, no murmur, no gallop. RESPIRATORY SYSTEM: Normal AP diameter. No accessory muscle use. Bilateral mild rhonchi heard. No wheezing. ABDOMEN: Soft, bowel sounds present, nontender. No distention. CENTRAL NERVOUS SYSTEM: Alert and awake, garbled speech, does not obey commands. EXTREMITIES: No edema, no erythema. Principal Diagnosis Failure to thrive, poor appetite, likely secondary to underlying right lung mass, likely secondary to malignancy Discharge Exam General- oriented x 2, not in distress, speaks in sentences with no effort or accessory muscle use Appears weak Eyes- anicteric Neck- no JVD Lungs- clear breath sounds bilaterally, no rales/wheezes Heart- normal rate, regular rhythm; no murmurs Abdomen- normal bowel sounds, nondistended, soft, nontender Extremities- no pretibial edema, no calf tenderness Neuro- alert, oriented x 2; no gross focal neurologic deficits Skin- warm & dry Discharge Data Allergies Allergy/AdvReac Type Severity Reaction Status Date / Time No Known Allergies Unverified 01/03/20 17:09 Consultations 01/03/20 19:20 ED Decision to Admit Stat 01/03/20 22:02 Consult Case Management - Discharge Planning Routine 01/04/20 08:00 Consult Pulmonology Routine 01/04/20 09:55 Consult Palliative Care Routine Ordered Studies 01/03/20 20:52 CT chest wo con Routine CT SCAN OF THE CHEST WITHOUT IV CONTRAST CLINICAL HISTORY: Postobstructive pneumonia. COMPARISON STUDY: Chest CT dated 12/02/2019. Chest x-ray dated 01/03/2020. TECHNIQUE: CT scan of the thorax was performed from the thoracic inlet to the upper abdomen. Images are reviewed in the axial, sagittal, and coronal planes. IV contrast was not administered for this examination as per the referring clinician. Note that the examination was performed in suboptimal fashion without IV contrast. A dose lowering technique was utilized adhering to the principles of ALARA. CT DOSE: 219.96 mGy.cm FINDINGS: Thyroid: Imaged portions of the thyroid gland are normal in size and attenuation. Thoracic aorta: There is mild atherosclerotic calcification of the thoracic aorta, which is normal in caliber and demonstrates standard 3-vessel arch anatomy. Heart: The heart is normal in size noting trace pericardial effusion. The coronary arteries are densely calcified. Lungs and pleural spaces: The right infrahilar mass lesion seen on 12/02/2019 is not well evaluated. There is obstruction of the right lower lobe bronchus with near complete atelectasis of the right lower lobe. There is a small to moderate associated right-sided pleural effusion. There is significant narrowing of the right middle lobe bronchus. Foci of patchy nodular consolidation are seen in the right upper, right middle, and left lower lobes. Mediastinum: Mediastinal lymphadenopathy similar to previous. Pretracheal nodes measure up to 1.8 cm short axis. AP window nodes measure up to 1.6 cm in short axis. A subcarinal ernesto anchor did measures approximately 3.7 x 3.4 cm. Shantelle: Not well assessed without IV contrast. Axillae: There is no axillary lymphadenopathy. Upper abdomen: A 3 cm cyst is partially visualized in the right kidney. Partially imaged upper abdominal viscera is otherwise grossly unremarkable. Skeletal structures: The skeletal structures are osteopenic. Degenerative change is noted throughout the thoracic spine. There is a compression deformity of L1. No lytic or blastic bony lesions are seen. IMPRESSION: 1. The large right hilar/infrahilar mass lesion seen on 12/02/2019 is not well evaluated due to occlusion of the right lower lobe bronchus and near complete atelectasis of the right lower lobe. 2. A small to moderate right pleural effusion has significantly increased in size from 12/02/2019. 3. Patchy nodular consolidation is seen in the right upper, right middle, and left lower lobes. Correlate clinically for evidence of an infectious/inflammatory pneumonitis. Lymphangitic spread of tumor throughout the right lung could also have a similar appearance. 4. Mediastinal lymphadenopathy is similar to previous. 5. Additional findings as above. Hospital Course (1) Mass of right lung: Per Dr. Mateo Cassidy's notes: Right hilar mass with mediastinal lymphadenopathy (In a patient who is a smoker with hypercalcemia This is malignancy until proven otherwise, squamous cell carc inoma high in differential as per pulmonary doctor Kadri) Atelectasis of the right lower lobe Right-sided pleural effusion -CT chest 01/03/2020: Again appreciated is mediastinal lymphadenopathy and sta tion 4R, 10 R, 7. Now there is total obstruction of the RBI leading to collapse of the right lower lobe. There is associated right-sided pleural effusion. The mass seems to be encasing the great vessels. Tree-in-bud opacities peripherally also appreciated in the right middle lobe Compared to the CT chest done 12/02/2019 now there seems to be progression of the RBI obstruction leading to right lower lobe collapse. -as per pulmonary Dr. Quinonez on 01/04/2020: "Patient is known to me from his previous admission where he came with incidental finding of hilar mass and postobstructive pneumonia. Patient did not have the capacity to make complex decisions like EBUS. There is still no clear documentation of who is the POA and can consent for the patient. Overall prognosis of the patient is very poor given that the RBI obstruction has progressed to total collapse of the right lower lobe. Given the overall poor status I think palliative care consult should be appropriate here. Unfortunately unless there is somebody to consent for the patient there is nothing much I can offer except for supportive care." --01/10/2020: Remained comfortable, not in pain or respiratory distress mostly sleeping, declining meals and medications --Has received IV Zosyn for possible component of pneumonia Palliative care service on board, discussed with Dr. Roldan, recommend home with hospice service I believe that the patient has a terminal illness, and is continuing to decline due to poor appetite and dysphagia, in line With patient's wishes when he was more coherent-no further work-up or bronchoscopy for his lung mass, no feeding tube, I believe that transitioning to a DNR status and transitioning patient to home with hospice would be the most appropriate medical decision for this patient at this time --Referral to home with hospice services made care of case management, accepted to return to [facility] today Hypokalemia --Failure to poor oral intake --Declining p.o. medications, replaced with IV potassium Hypercalcemia Per Dr. Mateo Cassidy's notes: -Calcium 11.6, corrected calcium 13.3 - Calcium stable Adult failure to thrive (Severe malnutrition e/b 10.6% loss in Body weight) Per Dr. Mateo Cassidy's notes: -79-year-old male who presents with adult failure to thrive, lung mass, and a 10.6% loss in body weight over the past 3 weeks - As per [facility], the patient lost about 14 pounds in last 3 weeks. He is on pureed diet and thin liquids, but patient is refusing to eat. He seems to has dysphagia, diet as tolerated. IV fluids with dextrose. check serum glucose - Appetite remains poor transition to home with hospice Dysphagia -Aspiration precautions, comfort feeds -Speech therapy recommendations: Pured diet with nectar thick liquids Aspiration precautions Stringent oral hygiene: Clean all surfaces of water prior to oral intake in the morning, after meals and before bed. This will be important to minimize amount of oral bacteria the patient is aspirating secretions/saliva. If the patient's goals change and he should be DNR with hospice care, then diet per patient preference should be considered in order to maintain quality of life. Continue oral hygiene Alternate solids and liquids Fully alert and upright Give meds in a carrier Oral hygiene COPD -Not in exacerbation -Continue with inhaled treatment Intellectual disability Per Dr. Mateo Cassidy's notes: -Ms. Pierre is the patient's modeling director who works for [employer]. Patients porter sample case is Miss. Trini Sheehan, phone number [phone] who works for [employer]. The patient has no living relatives, no power of criminal defense attorney. Currently he is Full code. Before the last admission, he was fairly high functioning and there were several months of decline before he got admitted last time. He has some garbled speech, but seems to understand him and as per [facility], he refused tube feedings. He is currently bedbound. Benign prostatic hypertrophy -on tamsulosin and finasteride. Deep venous thrombosis prophylaxis, heparin subQ given Disposition transition to home with hospice, return to [facility] Total Time Total Time Spent Total Time Spent (In Minutes): 45 minutes Discharge Plan Discharge Items Patient Disposition: Transfer [facility] Reason For Visit: FAILURE TO THRIVE Discharge Diagnosis: RIGHT LUNG MASS, LIKELY UNDERLYING CANCER, WEAKNESS, FAILURE TO THRIVE Activity: Resume your previous activity Non-emergency contact: Primary Care Provider Call non-emergency contact if: you have any medication questions Follow-up/Referrals: Paolo Vee [Primary Care Provider] - Diet: Regular Diet Texture: Pureed (blended smooth) Liquid Consistency: [place] thick Addtl Attending Provider Instructions: PATIENT TO TRANSITION TO HOSPICE CARE SERVICE AT [facility]. PLEASE REFER TO ACCOMPANYING HOSPITAL DISCHARGE SUMMARY FOR FURTHER DETAILS. Pending Studies at Discharge: No Stand-Alone Forms: My [employer] Skilled Items Patient informed of condition?: Yes DNR: Yes Discharge Level of Care: Skilled Communicable Disease: No Discharge Prognosis: Deteriorating Lines: None Urinary Catheter: No Medications and DC Order Prescriptions: Continued tamsulosin 0.4 mg Capsule 0.4 mg PO DAILY@0800 RF: 0 finasteride 5 mg Tablet 5 mg PO DAILY@0800 RF: 0 magnesium hydroxide [Milk of Magnesia] 400 mg/5 mL Suspension 30 ml PO DAILY PRN (Reason: Constipation) RF: 0 Discontinued amoxicillin-pot clavulanate [Augmentin] 875-125 mg Tablet 1 tab PO BIDM Qty: 4 RF: 0 dronabinol [Marinol] 2.5 mg Capsule 2.5 mg PO BID RF: 0 Discharge Orders: Discharge Order (Routine); Ordered 01/10/20 Ordered By: Luan Katz Admission Data Admit Date/Time: 01/03/20 20:52 Attending Provider: Luan Katz Admit Provider: Akbar Boyd Primary Care Provider: Paolo Vee Other Providers: Akbar Boyd ; April Quinonez ; Allie Roldan ; Mateo Cassidy ; Mariusz, Other Interventions: Discharge Summary Assessment (RN) Last Done: 01/10/20 12:55 DC Date/Time DO NOT enter until pt leaves facility: 01/10/20 13:59
== END 2020-01-10 13:59 | DRG 180 ==
LOC: ED 15:12 → 3N 20:52 → SUATTDRO 20:52 → 3N 21:44